=== PATIENT | male | born 1960 | race Two or more races ===

== ENCOUNTER 2021-07-18 14:50 | Inpatient (IN) | payer OTHER, MEDICAID ==
[~2021-07-18] VITALS: Ht 177.8 cm; Wt 131.0 kg
[2021-07-18] MEDS ORDERED: PANTOPRAZOLE 40mg/50ML NS AE 50 ML IV ONE (15:15)
[2021-07-18] MEDS ORDERED: PANTOPRAZOLE 40 MG/10 ML VIAL INJ IV ONE (15:15)
[2021-07-18 16:01] LABS: Basophils # (auto) 0.1 10 ^3/uL (0-0.2); Basophils % (auto) 1.2 % (0.0-2.0); Eosinophils # (auto) 0.4 10 ^3/uL (0-0.8); Eosinophils % (auto) 3.5 % (0.0-7.0); Hematocrit 34.4 % (41.0-53.0); Hemoglobin 11.7 g/dL (13.5-17.5); Lymphocytes # (auto) 1.4 10 ^3/uL (0.4-5.4); Lymphocytes % (auto) 12.8 % (10.0-50.0); Mean Corpuscular Hemoglobin 29.9 pg (28.0-32.0); Mean Corpuscular Hgb Conc. 34.1 g/dL (32.0-36.0); Mean Corpuscular Volume 87.6 fL (80.0-100.0); Monocytes # (auto) 0.9 10 ^3/uL (0-1.3); Monocytes % (auto) 8.1 % (0.0-12.0); Neutrophils % (auto) 74.4 % (37.0-80.0); Nucleated Red Blood Cells % 0.1 %; Red Blood Cells 3.93 10^6/uL (4.5-5.90); Red Cell Distribution Width 14.3 % (11.8-14.3); White Blood Cell 10.8 10^3/uL (4.4-10.8)
[2021-07-18 16:15] LABS: Alanine Aminotransferase 34 U/L (16-61); Albumin 2.2 g/dL (3.4-5.0); Anion Gap 4 (5-15); Aspartate Aminotransferase 10 U/L (15-37); BUN/Creatinine Ratio 19.3; Blood Urea Nitrogen 52 mg/dL (7-18); Calcium 7.7 mg/dL (8.5-10.1); Carbon Dioxide 21 mmol/L (21-32); Chloride 116 mmol/L (98-107); GFR African American 31 mL/min; GFR Non-African American 26 mL/min; Glucose 190 mg/dL (74-106); Sodium 141 mmol/L (136-145)
[2021-07-18 16:20] LABS: Alkaline Phosphatase 71 U/L (45-117); Bilirubin, Total 0.3 mg/dL (0.2-1.0); Total Protein 6.1 g/dL (6.4-8.2)
[2021-07-18 16:24] LABS: Potassium 5.8 mmol/L (3.5-5.1)
[2021-07-18] MEDS ORDERED: CALCIUM CHL 100MG/ML 1,000 MG in D5W 5% 100 ML IV ONE (17:30)
[2021-07-18] MEDS ORDERED: FUROSEMIDE 40 MG/4 ML VIAL IV ONE (17:30)
[2021-07-18 19:33] LABS: Calcium 8.1 mg/dL (8.5-10.1)
[2021-07-18 19:35] LABS: BUN/Creatinine Ratio 18.9
[2021-07-18 19:50] LABS: Potassium 6.3 mmol/L (3.5-5.1)
[2021-07-18] MEDS ORDERED: InsuLIN REG 1unit/0.01ml Soln (100units/ml) IV ONE (20:00)
[2021-07-18] MEDS ORDERED: SODIUM BICARBONATE 8.4% INJ 50ML SYRINGE IV ONE (20:00)
[2021-07-18] MEDS ORDERED: DEXTROSE (50%) 50ML SYRG IV ONE (20:00)
[2021-07-18] MEDS ORDERED: ALBUTEROL SULF 2.5 MG/0.5ML(0.5%) NEB SOLN NEB ONE (20:00)
[2021-07-18] MEDS ORDERED: CALCIUM GLUC 1,000mg/50ml-NS 0 ML IV ONE (22:31)
[2021-07-18] MEDS ORDERED: CALCIUM CHLOR(10%) 100MG/ML 10ML SYRINGE IV ONE (22:36)
[2021-07-19] MEDS ORDERED: SODIUM CHLORIDE 0.9% 1,000 ML IV ONE ×2 (04:30→08:30)
[2021-07-19 04:58] LABS: Basophils # (auto) 0.1 10 ^3/uL (0-0.2); Eosinophils # (auto) 0.2 10 ^3/uL (0-0.8)
[2021-07-19 05:00] LABS: Basophils % (auto) 0.4 % (0.0-2.0); Eosinophils % (auto) 1.5 % (0.0-7.0); Hematocrit 22.6 % (41.0-53.0); Hemoglobin 7.6 g/dL (13.5-17.5); Lymphocytes # (auto) 1.8 10 ^3/uL (0.4-5.4); Lymphocytes % (auto) 12.3 % (10.0-50.0); Mean Corpuscular Hemoglobin 29.9 pg (28.0-32.0); Mean Corpuscular Hgb Conc. 33.6 g/dL (32.0-36.0); Mean Corpuscular Volume 89.1 fL (80.0-100.0); Monocytes # (auto) 1.4 10 ^3/uL (0-1.3); Monocytes % (auto) 9.5 % (0.0-12.0); Neutrophils % (auto) 76.3 % (37.0-80.0); Nucleated Red Blood Cells % 0.1 %; Red Blood Cells 2.54 10^6/uL (4.5-5.90); Red Cell Distribution Width 14.4 % (11.8-14.3); White Blood Cell 14.4 10^3/uL (4.4-10.8)
[2021-07-19 05:15] LABS: BUN/Creatinine Ratio 16.2; Potassium 5.5 mmol/L (3.5-5.1)
[2021-07-19] MEDS ORDERED: NOREPINEPHRINE 8 MG/250ML KIT 250 ML IV ONE (08:51)
[2021-07-19] MEDS ORDERED: NOREPINEPHRINE 8 MG/250ML KIT 250 ML IV SCH (09:00)
[2021-07-19 09:30] VITALS: BP 96/63
[2021-07-19 09:45] VITALS: BP 131/111
[2021-07-19] MEDS ORDERED: SODIUM CHLORIDE 0.9% 4,100 ML IV ONE (10:00)
[2021-07-19] MEDS ORDERED: NITROGLYCERIN 0.4 MG SL TAB SL PRN (10:00)
[2021-07-19] MEDS ORDERED: SODIUM CHLORIDE 0.9% 1,000 ML IV SCH (10:00)
[2021-07-19] MEDS ORDERED: MORPHINE SULFATE INJECTION 2 MG/ML SYRG IV PRN (10:00)
[2021-07-19 10:30] VITALS: BP 105/51
[2021-07-19] MEDS ORDERED: SODIUM CHLORIDE 0.9% 2,000 ML IV ONE (10:30)
[2021-07-19] MEDS ORDERED: PANTOPRAZOLE 40mg/50ML NS AE 50 ML IV ONE (10:30)
[2021-07-19 10:37] LABS: INR 1.11 (0.9-1.15)
[2021-07-19] MEDS: OCTREOTIDE ACETATE 500 MCG in SODIUM CHL 0.9% 99 ML IV SCH ×2 (10:56→20:05)
[2021-07-19] MEDS ORDERED: HYDROmorphone HCL 2 MG/ML VL IV PRN (11:00)
[2021-07-19] MEDS ORDERED: NALBUPHINE HCL 10 MG/1ml INJECTION IV PRN (11:00)
[2021-07-19] MEDS ORDERED: DEXTROSE (50%) 50ML SYRG IV PRN (11:00)
[2021-07-19] MEDS ORDERED: cefTRIAXone 1GM/50ML D5W 50 ML IV ONE (11:00)
[2021-07-19] MEDS ORDERED: PROMETHAZINE HCL 25 MG/ML 1ML IV PRN (11:00)
[2021-07-19] MEDS ORDERED: GOLYTELY 4L KIT PO ONE (11:15)
[2021-07-19] MEDS: InsuLIN REG 1unit/0.01ml Soln (100units/ml) SC SCH ×2 (12:00→20:03)
[2021-07-19 12:04] LABS: Basophils # (auto) 0.1 10 ^3/uL (0-0.2); Basophils % (auto) 0.7 % (0.0-2.0); Hemoglobin 7.3 g/dL (13.5-17.5); Monocytes # (auto) 1.5 10 ^3/uL (0-1.3)
[2021-07-19 12:05] LABS: Eosinophils # (auto) 0.1 10 ^3/uL (0-0.8); Eosinophils % (auto) 0.8 % (0.0-7.0); Lymphocytes # (auto) 1.3 10 ^3/uL (0.4-5.4); Lymphocytes % (auto) 7.9 % (10.0-50.0); Mean Corpuscular Hemoglobin 29.5 pg (28.0-32.0); Mean Corpuscular Hgb Conc. 33.3 g/dL (32.0-36.0); Mean Corpuscular Volume 88.7 fL (80.0-100.0); Monocytes % (auto) 8.6 % (0.0-12.0); Red Blood Cells 2.48 10^6/uL (4.5-5.90); Red Cell Distribution Width 14.6 % (11.8-14.3); White Blood Cell 17.1 10^3/uL (4.4-10.8)
[2021-07-19 12:25] LABS: BUN/Creatinine Ratio 16.3; Calcium 7.8 mg/dL (8.5-10.1)
[2021-07-19 12:38] LABS: Potassium 5.6 mmol/L (3.5-5.1)
[2021-07-19] MEDS ORDERED: InsuLIN REG 1unit/0.01ml Soln (100units/ml) IV ONE ×2 (13:00→20:30)
[2021-07-19] MEDS ORDERED: DEXTROSE (50%) 50ML SYRG IV ONE ×2 (13:00→20:30)
[2021-07-19] MEDS ORDERED: SODIUM BICARBONATE 8.4 % INJ 50ML VIAL IV ONE (13:00)
[2021-07-19 13:50] VITALS: BP 103/39
[2021-07-19] MEDS: ACCU-CHEK COMFORT CURVE STRIP VI SCH ×2 (14:00→20:04)
[2021-07-19] MEDS ORDERED: metroNIDAZOLE 500MG/100ML 100 ML IV SCH (14:00)
[2021-07-19 14:05] VITALS: BP 83/35
[2021-07-19] MEDS: ONDANSETRON HCL 4 MG/2 ML VIAL IV PRN (15:57)
[2021-07-19] MEDS: PANTOPRAZOLE 40mg/50ML NS AE 50 ML IV SCH ×2 (16:08→20:06)
[2021-07-19] MEDS: SODIUM BICARBONATE 50ML VIAL 150 ML in D5W 5% 1,000 ML IV SCH (17:06)
[2021-07-19 17:07] LABS: BUN/Creatinine Ratio 14.7; Calcium 7.3 mg/dL (8.5-10.1)
[2021-07-19 18:01] LABS: Potassium 6.8 mmol/L (3.5-5.1)
[2021-07-19 18:54] LABS: Hemoglobin 7.5 g/dL (13.5-17.5)
[2021-07-19 18:57] LABS: Hematocrit 22.3 % (41.0-53.0)
[2021-07-19] MEDS ORDERED: SODIUM ZIRCONIUM CYCL 10 GM PAK PO ONE (19:15)
[2021-07-19] MEDS ORDERED: CALCIUM GLUC 1,000mg/50ml-NS 50 ML IV ONE (20:30)
[2021-07-19] MEDS ORDERED: SODIUM BICARBONATE 8.4% INJ 50ML SYRINGE IV ONE (20:30)
[2021-07-19] MEDS ORDERED: ALBUTEROL SULF 2.5 MG/0.5ML(0.5%) NEB SOLN NEB ONE (21:30)
[2021-07-19] MEDS ORDERED: ALBUTEROL SULF 2.5 MG/0.5ML(0.5%) NEB SOLN ONE (23:50)
[2021-07-20] VITALS (89 sets, daily range): BP systolic 75–203; BP diastolic 31–107
[2021-07-20] MEDS: PHENYLEPHRINE IV 250 ML IV SCH ×2 (00:30→09:00)
[2021-07-20] MEDS ORDERED: PHENYLEPHRINE IV 250 ML IV ONE (00:40)
[2021-07-20 00:43] LABS: Hematocrit 23.5 % (41.0-53.0); Hemoglobin 7.5 g/dL (13.5-17.5)
[2021-07-20] MEDS: InsuLIN REG 1unit/0.01ml Soln (100units/ml) SC SCH ×5 (01:52→23:38)
[2021-07-20] MEDS: PANTOPRAZOLE 40mg/50ML NS AE 50 ML IV SCH (02:27)
[2021-07-20] MEDS ORDERED: VASOPRESSIN 20 UNIT/ML ONE (02:29)
[2021-07-20] MEDS ORDERED: MIDAZOLAM HCL 5 MG/ML-1ML VIAL ONE ×2 (02:32→08:49)
[2021-07-20] MEDS ORDERED: fentaNYL CITRATE 100 MCG/2 ML VL ONE ×2 (02:32→08:49)
[2021-07-20] MEDS ORDERED: diphenhdrAMINE HCL 50 MG/1 ML VL ONE ×2 (02:32→08:49)
[2021-07-20] MEDS: VASOPRESSIN 50 UNITS in D5W 5% 247.5 ML IV SCH ×2 (03:02→18:00)
[2021-07-20] MEDS ORDERED: SODIUM CHLORIDE 0.9% 1,000 ML IV ONE (03:30)
[2021-07-20] MEDS ORDERED: SODIUM BICARBONATE 8.4% INJ 50ML SYRINGE IV ONE ×2 (04:00→17:00)
[2021-07-20] MEDS ORDERED: CALCIUM GLUC 1,000mg/50ml-NS 50 ML IV ONE ×3 (04:00→18:45)
[2021-07-20] MEDS ORDERED: DEXTROSE (50%) 50ML SYRG IV ONE ×2 (04:00→18:45)
[2021-07-20] MEDS ORDERED: InsuLIN REG 1unit/0.01ml Soln (100units/ml) IV ONE ×3 (04:00→18:45)
[2021-07-20] MEDS: ACCU-CHEK COMFORT CURVE STRIP VI SCH ×5 (05:37→23:36)
[2021-07-20] MEDS: SODIUM BICARBONATE 50ML VIAL 150 ML in D5W 5% 1,000 ML IV SCH ×3 (07:32→20:09)
[2021-07-20 08:07] LABS: Alanine Aminotransferase 123 U/L (16-61); Alkaline Phosphatase 31 U/L (45-117); Aspartate Aminotransferase 146 U/L (15-37); Bilirubin, Total 0.3 mg/dL (0.2-1.0); GFR African American 19 mL/min; GFR Non-African American 16 mL/min; Total Protein 2.3 g/dL (6.4-8.2)
[2021-07-20 08:34] LABS: Anion Gap 13 (5-15); BUN/Creatinine Ratio 11.5; Blood Urea Nitrogen 47 mg/dL (7-18); Carbon Dioxide 10 mmol/L (21-32); Chloride 125 mmol/L (98-107); Glucose 285 mg/dL (74-106); Potassium 5.1 mmol/L (3.5-5.1); Sodium 148 mmol/L (136-145)
[2021-07-20 08:40] LABS: Calcium > 15.0 mg/dL (8.5-10.1)
[2021-07-20 08:41] LABS: Albumin 0.8 g/dL (3.4-5.0)
[2021-07-20] MEDS ORDERED: SODIUM CHLORIDE LOCK 10 ML ONE (08:48)
[2021-07-20] MEDS ORDERED: LIDOCAINE VISCOUS 2% 15ML UD ONE (08:49)
[2021-07-20] MEDS: NOREPINEPHRINE BITARTRATE 32 MG in SODIUM CHL 0.9% 218 ML IV SCH (10:00)
[2021-07-20] MEDS ORDERED: ALBUMIN 5% 250 ML IV ONE (10:00)
[2021-07-20] MEDS: PANTOPRAZOLE 40 MG/10 ML VIAL INJ IV SCH ×2 (10:00→22:16)
[2021-07-20] MEDS: PHENYLEPHRINE INJ 80 MG in SODIUM CHL 0.9% 242 ML IV SCH ×2 (10:00→18:00)
[2021-07-20] MEDS ORDERED: LIDOCAINE 2%HCL (LOCAL ANESTH.) INJ 20ML MDV ONE (11:37)
[2021-07-20] MEDS ORDERED: GLUCAGON HYDROCHLORIDE (RDNA) 1 MG VIAL ONE ×2 (12:34→13:10)
[2021-07-20] MEDS ORDERED: IODIXANOL 320MG/ML 100ML BTL IV ONE ×2 (12:34→13:12)
[2021-07-20 15:54] LABS: Hematocrit 25.3 % (41.0-53.0); Hemoglobin 8.8 g/dL (13.5-17.5); Mean Corpuscular Hemoglobin 31.3 pg (28.0-32.0); Mean Corpuscular Hgb Conc. 34.6 g/dL (32.0-36.0); Mean Corpuscular Volume 90.5 fL (80.0-100.0); Red Cell Distribution Width 14.2 % (11.8-14.3)
[2021-07-20 16:12] LABS: Albumin 1.1 g/dL (3.4-5.0); Calcium 6.1 mg/dL (8.5-10.1)
[2021-07-20] MEDS ORDERED: DEXTROSE (50%) 50ML SYRG IV PRN (16:15)
[2021-07-20] MEDS ORDERED: INSULIN LANTUS (GLARGINE) 1 /0.01ml (100units/ml) SC ONE (16:15)
[2021-07-20 16:16] LABS: BUN/Creatinine Ratio 10.2; Bilirubin, Total 0.6 mg/dL (0.2-1.0); Total Protein 2.8 g/dL (6.4-8.2)
[2021-07-20 16:27] LABS: White Blood Cell 30.5 10^3/uL (4.4-10.8)
[2021-07-20 16:29] LABS: Basophils % (manual) 0 (0.0-2.0); Blast Cells 0; Eosinophils % (manual) 0 (0-7); Metamyelocytes % 0; Myelocytes % 0; Promyelocytes % 0; Reactive Lymphocytes 0
[2021-07-20 16:51] LABS: Band Neutrophils % (manual) 5; Lymphocytes % (manual) 5 (10.0-50.0); Monocytes % (manual) 7 (0-12)
[2021-07-20 16:54] LABS: Potassium 6.6 mmol/L (3.5-5.1)
[2021-07-20] MEDS ORDERED: ALBUTEROL SULF 2.5 MG/0.5ML(0.5%) NEB SOLN NEB ONE (17:00)
[2021-07-20] MEDS ORDERED: FUROSEMIDE 100 MG/10ML VIAL IV ONE (17:15)
[2021-07-20] MEDS ORDERED: HEPARIN 1,000 UNITS/ml 1ML VIAL ONE ×2 (17:43→17:45)
[2021-07-20] MEDS: OCTREOTIDE ACETATE 500 MCG in SODIUM CHL 0.9% 99 ML IV SCH (20:04)
[2021-07-20] MEDS: metroNIDAZOLE 500MG/100ML 100 ML IV SCH (22:15)
[2021-07-21] VITALS (97 sets, daily range): BP systolic 70–160; BP diastolic 20–74
[2021-07-21] MEDS ORDERED: ALBUMIN 25% 100 ML IV ONE ×2 (00:05→00:10)
[2021-07-21 01:15] LABS: Albumin 2.1 g/dL (3.4-5.0); BUN/Creatinine Ratio 9.3; Calcium 6.3 mg/dL (8.5-10.1); Potassium 4.9 mmol/L (3.5-5.1)
[2021-07-21 01:17] LABS: Bilirubin, Total 0.8 mg/dL (0.2-1.0)
[2021-07-21 01:37] LABS: Hematocrit 18.7 % (41.0-53.0)
[2021-07-21 01:43] LABS: Hemoglobin 6.3 g/dL (13.5-17.5)
[2021-07-21 01:59] LABS: Hematocrit 18.9 % (41.0-53.0); Red Blood Cells 2.02 10^6/uL (4.5-5.90)
[2021-07-21 02:00] LABS: Mean Corpuscular Hemoglobin 31.4 pg (28.0-32.0); Mean Corpuscular Hgb Conc. 33.6 g/dL (32.0-36.0); Mean Corpuscular Volume 93.3 fL (80.0-100.0); Red Cell Distribution Width 14.8 % (11.8-14.3); White Blood Cell 25.7 10^3/uL (4.4-10.8)
[2021-07-21 02:18] LABS: Hemoglobin 6.3 g/dL (13.5-17.5)
[2021-07-21 02:30] LABS: Basophils % (manual) 0 (0.0-2.0); Blast Cells 0; Eosinophils % (manual) 0 (0-7); Metamyelocytes % 0; Myelocytes % 0; Promyelocytes % 0; Reactive Lymphocytes 0
[2021-07-21] MEDS ORDERED: fentaNYL CITRATE 5 ML ONE ×2 (02:34→03:16)
[2021-07-21] MEDS ORDERED: MIDAZOLAM HCL 2MG/2ML 2ml VIAL (1mg/ml) ONE (02:34)
[2021-07-21] MEDS ORDERED: ROCURONIUM 10MG/ML 10ML VIAL IV ONE ×2 (02:35→03:12)
[2021-07-21] MEDS ORDERED: ceFAZolin 1GM/50ML 100 ML IV ONE (02:58)
[2021-07-21] MEDS ORDERED: POVIDONE IODINE 10 % TOPICAL OINT 30GM TOP ONE (04:34)
[2021-07-21] MEDS ORDERED: MIDAZOLAM DRIP 50 mg/50mL 50 ML IV SCH ×4 (05:15→17:15)
[2021-07-21 05:25] LABS: Band Neutrophils % (manual) 26; Lymphocytes % (manual) 5 (10.0-50.0); Monocytes % (manual) 4 (0-12)
[2021-07-21] MEDS ORDERED: PROPOFOL 10 MG/ML 20 ML IV ONE (05:31)
[2021-07-21] MEDS ORDERED: fentaNYL Drip 2500mCg/250mlNS 250 ML IV ONE (05:49)
[2021-07-21] MEDS ORDERED: MIDAZOLAM DRIP 50 mg/50mL 50 ML IV ONE (05:49)
[2021-07-21] MEDS: fentaNYL Drip 2500mCg/250mlNS 250 ML IV SCH (05:50)
[2021-07-21] MEDS: PROPOFOL 100 ML IV SCH (06:00)
[2021-07-21] MEDS: ACCU-CHEK COMFORT CURVE STRIP VI SCH ×5 (06:05→20:37)
[2021-07-21] MEDS: InsuLIN REG 1unit/0.01ml Soln (100units/ml) SC SCH ×5 (06:06→20:37)
[2021-07-21] MEDS: SODIUM BICARBONATE 50ML VIAL 150 ML in D5W 5% 1,000 ML IV SCH ×2 (06:07→08:13)
[2021-07-21] MEDS: OCTREOTIDE ACETATE 500 MCG in SODIUM CHL 0.9% 99 ML IV SCH ×2 (06:07→16:28)
[2021-07-21] MEDS: metroNIDAZOLE 500MG/100ML 100 ML IV SCH ×3 (06:33→22:33)
[2021-07-21 06:48] LABS: Basophils # (auto) 0 10 ^3/uL (0-0.2); Eosinophils # (auto) 0 10 ^3/uL (0-0.8); Eosinophils % (auto) 0.1 % (0.0-7.0); Lymphocytes # (auto) 1.2 10 ^3/uL (0.4-5.4); Monocytes # (auto) 1.2 10 ^3/uL (0-1.3)
[2021-07-21 06:50] LABS: Basophils % (auto) 0.3 % (0.0-2.0); Hematocrit 20.1 % (41.0-53.0); Lymphocytes % (auto) 8.9 % (10.0-50.0); Mean Corpuscular Hemoglobin 31.5 pg (28.0-32.0); Mean Corpuscular Hgb Conc. 34.3 g/dL (32.0-36.0); Mean Corpuscular Volume 91.9 fL (80.0-100.0); Monocytes % (auto) 9.4 % (0.0-12.0); Neutrophils # (auto) 10.7 10 ^3/uL (1.6-8.6); Neutrophils % (auto) 81.3 % (37.0-80.0); Nucleated Red Blood Cells % 0.3 %; Red Blood Cells 2.18 10^6/uL (4.5-5.90); Red Cell Distribution Width 13.8 % (11.8-14.3); White Blood Cell 13.2 10^3/uL (4.4-10.8)
[2021-07-21 07:08] LABS: Albumin 1.5 g/dL (3.4-5.0); BUN/Creatinine Ratio 9.2; Potassium 4.5 mmol/L (3.5-5.1)
[2021-07-21 07:11] LABS: Bilirubin, Total 0.5 mg/dL (0.2-1.0); Total Protein 3.4 g/dL (6.4-8.2)
[2021-07-21 07:13] LABS: Hemoglobin 6.9 g/dL (13.5-17.5)
[2021-07-21 07:35] LABS: Calcium 5.7 mg/dL (8.5-10.1)
[2021-07-21] MEDS ORDERED: CALCIUM GLUC 1,000mg/50ml-NS 50 ML IV ONE ×2 (08:00→10:00)
[2021-07-21 09:06] LABS: INR 1.44 (0.9-1.15); Partial Thromboplastin Time 32.5 sec (23.6-33.0)
[2021-07-21] MEDS: NOREPINEPHRINE BITARTRATE 32 MG in SODIUM CHL 0.9% 218 ML IV SCH (10:00)
[2021-07-21] MEDS: PANTOPRAZOLE 40 MG/10 ML VIAL INJ IV SCH ×2 (10:29→22:33)
[2021-07-21 10:47] LABS: Hematocrit 19.1 % (41.0-53.0)
[2021-07-21 10:49] LABS: Hemoglobin 6.5 g/dL (13.5-17.5)
[2021-07-21] MEDS ORDERED: FUROSEMIDE 20 MG/2 ML VIAL IV ONE (11:00)
[2021-07-21] MEDS: ALBUMIN 25% 100 ML IV SCH ×2 (11:18→18:12)
[2021-07-21] MEDS: SODIUM BICARBONATE 50ML VIAL 150 ML in SOD CHL 0.45% 1,000 ML IV SCH (13:40)
[2021-07-21] MEDS ORDERED: INSULIN LANTUS (GLARGINE) 1 /0.01ml (100units/ml) SC ONE (13:45)
[2021-07-21] MEDS ORDERED: TPN PER PHARMACY 0 ML IV SCH (13:45)
[2021-07-21 14:09] LABS: Magnesium 1.5 mg/dL (1.6-2.6); Phosphorus 6.4 mg/dL (2.5-4.90)
[2021-07-21] MEDS ORDERED: MAGNESIUM SULFATE 1GM/100ML 100 ML IV ONE (17:00)
[2021-07-21] MEDS ORDERED: MIDAZOLAM HCL 50 MG in SODIUM CHL 0.9% 50 ML IV SCH (17:30)
[2021-07-21] MEDS: MAGNESIUM SULFATE 1GM/100ML 100 ML IV SCH ×2 (17:30→20:35)
[2021-07-21] MEDS: MIDAZOLAM HCL IV SCH (17:30)
[2021-07-21] MEDS: SODIUM CHL 0.9% IV SCH (17:30)
[2021-07-21] MEDS: VASOPRESSIN 50 UNITS in D5W 5% 247.5 ML IV SCH (18:38)
[2021-07-21] MEDS: PHENYLEPHRINE INJ 80 MG in SODIUM CHL 0.9% 242 ML IV SCH (18:39)
[2021-07-21] MEDS ORDERED: AMINO ACID INFUSION IN D10W 1,000 ML IV NR (20:00)
[2021-07-21 22:27] LABS: Hematocrit 22.6 % (41.0-53.0); Hemoglobin 7.5 g/dL (13.5-17.5)
[2021-07-21] MEDS: INSULIN LANTUS (GLARGINE) 1 /0.01ml (100units/ml) SC SCH (22:45)
[2021-07-22] VITALS (101 sets, daily range): BP systolic 83–167; BP diastolic 28–61
[2021-07-22] MEDS: CEFOTETAN DISODIUM IV SCH ×3 (00:06→21:55)
[2021-07-22] MEDS: SODIUM BICARBONATE 50ML VIAL 150 ML in SOD CHL 0.45% 1,000 ML IV SCH ×2 (00:06→08:59)
[2021-07-22] MEDS: SODIUM CHL 0.9% IV SCH ×4 (00:06→21:55)
[2021-07-22] MEDS: ACCU-CHEK COMFORT CURVE STRIP VI SCH ×6 (00:19→19:53)
[2021-07-22] MEDS: OCTREOTIDE ACETATE 500 MCG in SODIUM CHL 0.9% 99 ML IV SCH ×2 (03:14→09:30)
[2021-07-22] MEDS: InsuLIN REG 1unit/0.01ml Soln (100units/ml) SC SCH ×6 (03:49→19:52)
[2021-07-22] MEDS: ALBUMIN 25% 100 ML IV SCH (03:49)
[2021-07-22 04:36] LABS: Basophils # (auto) 0 10 ^3/uL (0-0.2); Eosinophils # (auto) 0.1 10 ^3/uL (0-0.8); Lymphocytes # (auto) 0.9 10 ^3/uL (0.4-5.4); Neutrophils # (auto) 8.3 10 ^3/uL (1.6-8.6); Red Cell Distribution Width 14.4 % (11.8-14.3)
[2021-07-22 04:37] LABS: Basophils % (auto) 0.3 % (0.0-2.0); Eosinophils % (auto) 0.8 % (0.0-7.0); Hematocrit 19.9 % (41.0-53.0); Lymphocytes % (auto) 8.9 % (10.0-50.0); Mean Corpuscular Hgb Conc. 34.7 g/dL (32.0-36.0); Mean Corpuscular Volume 89.3 fL (80.0-100.0); Monocytes # (auto) 1.1 10 ^3/uL (0-1.3); Monocytes % (auto) 10.6 % (0.0-12.0); Neutrophils % (auto) 79.4 % (37.0-80.0); Red Blood Cells 2.23 10^6/uL (4.5-5.90); White Blood Cell 10.5 10^3/uL (4.4-10.8)
[2021-07-22] MEDS: PROPOFOL 100 ML IV SCH (04:37)
[2021-07-22 04:44] LABS: Hemoglobin 6.9 g/dL (13.5-17.5)
[2021-07-22 04:50] LABS: INR 1.32 (0.9-1.15); Magnesium 1.6 mg/dL (1.6-2.6); Potassium 3.7 mmol/L (3.5-5.1)
[2021-07-22 04:53] LABS: BUN/Creatinine Ratio 9.3; Bilirubin, Total 0.4 mg/dL (0.2-1.0); Phosphorus 4.4 mg/dL (2.5-4.90); Total Protein 3.8 g/dL (6.4-8.2)
[2021-07-22 05:08] LABS: Pre Albumin 8.2 mg/dL (20.0-40.0)
[2021-07-22] MEDS ORDERED: CALCIUM GLUC 1,000mg/50ml-NS 50 ML IV ONE ×2 (05:15→10:45)
[2021-07-22] MEDS: fentaNYL Drip 2500mCg/250mlNS 250 ML IV SCH ×2 (06:00→12:22)
[2021-07-22] MEDS: metroNIDAZOLE 500MG/100ML 100 ML IV SCH ×3 (07:33→21:52)
[2021-07-22] MEDS: PANTOPRAZOLE 40 MG/10 ML VIAL INJ IV SCH ×2 (09:33→21:53)
[2021-07-22] MEDS: NOREPINEPHRINE BITARTRATE 32 MG in SODIUM CHL 0.9% 218 ML IV SCH ×2 (09:34→22:24)
[2021-07-22] MEDS: INSULIN LANTUS (GLARGINE) 1 /0.01ml (100units/ml) SC SCH ×2 (09:34→22:07)
[2021-07-22] MEDS: MAGNESIUM SULFATE 1GM/100ML 100 ML IV SCH ×2 (11:24→12:26)
[2021-07-22] MEDS: MIDAZOLAM HCL IV SCH (12:16)
[2021-07-22] MEDS ORDERED: FUROSEMIDE 100 MG/10ML VIAL IV ONE (13:00)
[2021-07-22] MEDS ORDERED: TPN PER PHARMACY IV NR ×9 (20:00)
[2021-07-22] MEDS ORDERED: NOREPINEPHRINE 8 MG/250ML KIT 250 ML IV ONE (22:09)
[2021-07-23] VITALS (93 sets, daily range): BP systolic 81–144; BP diastolic 26–100
[2021-07-23] MEDS: ACCU-CHEK COMFORT CURVE STRIP VI SCH ×5 (00:11→17:20)
[2021-07-23] MEDS: InsuLIN REG 1unit/0.01ml Soln (100units/ml) SC SCH ×5 (00:16→17:20)
[2021-07-23] MEDS: MIDAZOLAM HCL IV SCH (00:53)
[2021-07-23] MEDS: VASOPRESSIN 50 UNITS in D5W 5% 247.5 ML IV SCH (00:53)
[2021-07-23] MEDS: SODIUM CHL 0.9% IV SCH (00:53)
[2021-07-23] MEDS: fentaNYL Drip 2500mCg/250mlNS 250 ML IV SCH (00:55)
[2021-07-23] MEDS: PROPOFOL 100 ML IV SCH (03:14)
[2021-07-23 04:30] LABS: Eosinophils # (auto) 0.2 10 ^3/uL (0-0.8); Eosinophils % (auto) 1.7 % (0.0-7.0); Lymphocytes # (auto) 0.9 10 ^3/uL (0.4-5.4); Mean Corpuscular Hgb Conc. 34.5 g/dL (32.0-36.0); Monocytes # (auto) 0.9 10 ^3/uL (0-1.3); Monocytes % (auto) 8.7 % (0.0-12.0)
[2021-07-23 04:32] LABS: Basophils # (auto) 0 10 ^3/uL (0-0.2); Basophils % (auto) 0.4 % (0.0-2.0); Hemoglobin 7.2 g/dL (13.5-17.5); Lymphocytes % (auto) 8.7 % (10.0-50.0); Mean Corpuscular Hemoglobin 31.3 pg (28.0-32.0); Mean Corpuscular Volume 90.5 fL (80.0-100.0); Neutrophils # (auto) 8.2 10 ^3/uL (1.6-8.6); Neutrophils % (auto) 80.5 % (37.0-80.0); Red Blood Cells 2.32 10^6/uL (4.5-5.90); Red Cell Distribution Width 14.8 % (11.8-14.3); White Blood Cell 10.2 10^3/uL (4.4-10.8)
[2021-07-23 05:04] LABS: Calcium 6.6 mg/dL (8.5-10.1); Magnesium 1.8 mg/dL (1.6-2.6); Potassium 3.7 mmol/L (3.5-5.1)
[2021-07-23 05:05] LABS: INR 1.3 (0.9-1.15); Partial Thromboplastin Time 35.4 sec (23.6-33.0)
[2021-07-23 05:09] LABS: Albumin 1.8 g/dL (3.4-5.0); BUN/Creatinine Ratio 9.4; Bilirubin, Total 0.4 mg/dL (0.2-1.0); Phosphorus 3.9 mg/dL (2.5-4.90)
[2021-07-23] MEDS: metroNIDAZOLE 500MG/100ML 100 ML IV SCH ×3 (05:47→21:07)
[2021-07-23] MEDS ORDERED: CALCIUM GLUC 1,000mg/50ml-NS 50 ML IV ONE (08:00)
[2021-07-23] MEDS ORDERED: ALBUMIN 25% 100 ML IV ONE (09:45)
[2021-07-23] MEDS ORDERED: FUROSEMIDE 40 MG/4 ML VIAL IV ONE (09:45)
[2021-07-23] MEDS: PHENYLEPHRINE INJ 80 MG in SODIUM CHL 0.9% 242 ML IV SCH (10:00)
[2021-07-23] MEDS: cefTRIAXone 1GM/50ML D5W 50 ML IV SCH (10:07)
[2021-07-23] MEDS: PANTOPRAZOLE 40 MG/10 ML VIAL INJ IV SCH ×2 (10:07→21:07)
[2021-07-23] MEDS: INSULIN LANTUS (GLARGINE) 1 /0.01ml (100units/ml) SC SCH ×2 (10:08→21:48)
[2021-07-23] MEDS ORDERED: DEXTROSE (50%) 50ML SYRG IV PRN (11:15)
[2021-07-23] MEDS ORDERED: TPN PER PHARMACY IV NR ×9 (20:00)
[2021-07-24] VITALS (40 sets, daily range): BP systolic 95–179; BP diastolic 37–79
[2021-07-24] MEDS: PROPOFOL 100 ML IV SCH ×2 (01:51→23:41)
[2021-07-24] MEDS: VASOPRESSIN 50 UNITS in D5W 5% 247.5 ML IV SCH (02:30)
[2021-07-24 04:33] LABS: Basophils # (auto) 0 10 ^3/uL (0-0.2); Eosinophils # (auto) 0.4 10 ^3/uL (0-0.8); Hemoglobin 8.4 g/dL (13.5-17.5); Lymphocytes # (auto) 0.9 10 ^3/uL (0.4-5.4); Monocytes # (auto) 1.1 10 ^3/uL (0-1.3); Monocytes % (auto) 9.9 % (0.0-12.0); Neutrophils # (auto) 8.8 10 ^3/uL (1.6-8.6); Nucleated Red Blood Cells % 0.5 %; Red Blood Cells 2.72 10^6/uL (4.5-5.90); White Blood Cell 11.2 10^3/uL (4.4-10.8)
[2021-07-24 04:50] LABS: Potassium 3.2 mmol/L (3.5-5.1)
[2021-07-24 04:52] LABS: Basophils % (auto) 0.3 % (0.0-2.0); Eosinophils % (auto) 3.2 % (0.0-7.0); Hematocrit 24.7 % (41.0-53.0); Lymphocytes % (auto) 7.8 % (10.0-50.0); Mean Corpuscular Hemoglobin 30.8 pg (28.0-32.0); Mean Corpuscular Hgb Conc. 33.9 g/dL (32.0-36.0); Mean Corpuscular Volume 90.7 fL (80.0-100.0); Neutrophils % (auto) 78.8 % (37.0-80.0); Red Cell Distribution Width 14.9 % (11.8-14.3)
[2021-07-24 04:56] LABS: BUN/Creatinine Ratio 10.6; Calcium 7.3 mg/dL (8.5-10.1); Magnesium 1.9 mg/dL (1.6-2.6); Phosphorus 3.6 mg/dL (2.5-4.90)
[2021-07-24 05:07] LABS: Bilirubin, Total 0.6 mg/dL (0.2-1.0); Total Protein 4.5 g/dL (6.4-8.2)
[2021-07-24] MEDS: ACCU-CHEK COMFORT CURVE STRIP VI SCH ×5 (05:57→23:41)
[2021-07-24] MEDS: fentaNYL Drip 2500mCg/250mlNS 250 ML IV SCH (05:57)
[2021-07-24] MEDS: metroNIDAZOLE 500MG/100ML 100 ML IV SCH ×3 (05:57→22:10)
[2021-07-24] MEDS: InsuLIN REG 1unit/0.01ml Soln (100units/ml) SC SCH ×5 (05:58→23:45)
[2021-07-24] MEDS: INSULIN LANTUS (GLARGINE) 1 /0.01ml (100units/ml) SC SCH ×2 (10:00→22:13)
[2021-07-24] MEDS: PANTOPRAZOLE 40 MG/10 ML VIAL INJ IV SCH ×2 (10:00→22:10)
[2021-07-24] MEDS: cefTRIAXone 1GM/50ML D5W 50 ML IV SCH (12:22)
[2021-07-24 13:17] LABS: Hepatitis A Ab IgM Negative; Hepatitis B Core IgM Negative; Hepatitis B Surface Antigen Negative (Negative); Hepatitis C Antibody Negative (Negative)
[2021-07-24] MEDS: hydrALAZINE HCL 20 MG/ML VL IV PRN (15:18)
[2021-07-24] MEDS: POTASSIUM CHL 20MEQ/100ML 100 ML IV SCH ×2 (15:40→17:15)
[2021-07-24] MEDS: SODIUM CHL 0.9% IV SCH (17:30)
[2021-07-24] MEDS: MIDAZOLAM HCL IV SCH (17:30)
[2021-07-24] MEDS ORDERED: TPN PER PHARMACY IV NR ×8 (20:00)
[2021-07-24 20:06] LABS: Creatinine, Urine 67.1 mg/dL (30.0-125.0); Protein, Urine 369.8 mg/dL (0.0-11.9)
[2021-07-24 20:07] LABS: Creatinine, Urine 67.1 mg/dL (30.0-125.0)
[2021-07-25] VITALS (93 sets, daily range): BP systolic 110–188; BP diastolic 39–79
[2021-07-25] MEDS: fentaNYL Drip 2500mCg/250mlNS 250 ML IV SCH ×2 (00:20→22:51)
[2021-07-25 03:59] LABS: Urine Amorphous Crystal FEW /hpf (None Seen); Urine Bacteria FEW /hpf (None Seen); Urine Blood 3+ /uL (Negative); Urine Hyaline Cast FEW /lpf (0 - 2); Urine Specific Gravity 1.022 (1.001-1.035); Urine WBC 17 /hpf (0 - 3); Urine WBC Clumps PRESENT /hpf (None Seen)
[2021-07-25 04:33] LABS: Basophils # (auto) 0 10 ^3/uL (0-0.2); Basophils % (auto) 0.2 % (0.0-2.0); Eosinophils # (auto) 0.2 10 ^3/uL (0-0.8); Hemoglobin 7.7 g/dL (13.5-17.5); Mean Corpuscular Volume 91.3 fL (80.0-100.0)
[2021-07-25 04:35] LABS: Eosinophils % (auto) 1.9 % (0.0-7.0); Hematocrit 22.4 % (41.0-53.0); Lymphocytes # (auto) 0.7 10 ^3/uL (0.4-5.4); Lymphocytes % (auto) 6.1 % (10.0-50.0); Mean Corpuscular Hemoglobin 31.6 pg (28.0-32.0); Mean Corpuscular Hgb Conc. 34.6 g/dL (32.0-36.0); Monocytes # (auto) 1.1 10 ^3/uL (0-1.3); Monocytes % (auto) 10.3 % (0.0-12.0); Neutrophils % (auto) 81.5 % (37.0-80.0); Nucleated Red Blood Cells % 0.5 %; Red Blood Cells 2.45 10^6/uL (4.5-5.90); Red Cell Distribution Width 14.4 % (11.8-14.3)
[2021-07-25 04:46] LABS: Potassium 3.3 mmol/L (3.5-5.1)
[2021-07-25 04:55] LABS: Albumin 1.6 g/dL (3.4-5.0); BUN/Creatinine Ratio 12.7; Bilirubin, Total 0.5 mg/dL (0.2-1.0); Calcium 7.2 mg/dL (8.5-10.1); Magnesium 2.4 mg/dL (1.6-2.6); Phosphorus 2.3 mg/dL (2.5-4.90); Total Protein 4.1 g/dL (6.4-8.2)
[2021-07-25] MEDS: ACCU-CHEK COMFORT CURVE STRIP VI SCH ×4 (05:22→23:27)
[2021-07-25] MEDS: InsuLIN REG 1unit/0.01ml Soln (100units/ml) SC SCH ×4 (05:25→23:33)
[2021-07-25] MEDS: metroNIDAZOLE 500MG/100ML 100 ML IV SCH ×3 (05:43→22:08)
[2021-07-25] MEDS: PANTOPRAZOLE 40 MG/10 ML VIAL INJ IV SCH ×2 (08:22→22:08)
[2021-07-25] MEDS: cefTRIAXone 1GM/50ML D5W 50 ML IV SCH (08:22)
[2021-07-25] MEDS ORDERED: POTASSIUM CHLORIDE 20 MEQ, LIDOCAINE 1% (LOCAL ANESTH.) 2 ML in SODIUM CHL 0.9% 100 ML IV ONE (09:30)
[2021-07-25] MEDS: INSULIN LANTUS (GLARGINE) 1 /0.01ml (100units/ml) SC SCH ×2 (10:04→22:09)
[2021-07-25] MEDS ORDERED: POTASSIUM CHL 20MEQ/100ML 100 ML IV SCH (11:00)
[2021-07-25] MEDS: MIDAZOLAM HCL IV SCH (11:10)
[2021-07-25] MEDS: SODIUM CHL 0.9% IV SCH (11:10)
[2021-07-25] MEDS ORDERED: POTASSIUM PHOSP 22MEQ(15MMOLE) in NS 100 ML IV ONE (12:00)
[2021-07-25 12:07] LABS: Hematocrit 23.5 % (41.0-53.0); Hemoglobin 7.9 g/dL (13.5-17.5)
[2021-07-25] MEDS: SODIUM FERR GLUC 62.5MG/5ML 125 MG in SODIUM CHL 0.9% 100 ML IV SCH (12:28)
[2021-07-25] MEDS ORDERED: FUROSEMIDE 40 MG/4 ML VIAL IV ONE (15:15)
[2021-07-25] MEDS ORDERED: TPN PER PHARMACY IV NR ×10 (20:00)
[2021-07-25] MEDS: PROPOFOL 100 ML IV SCH (23:05)
[2021-07-26] VITALS (98 sets, daily range): BP systolic 98–177; BP diastolic 44–73
[2021-07-26 04:10] LABS: Albumin 1.6 g/dL (3.4-5.0); BUN/Creatinine Ratio 15.2; Calcium 7.2 mg/dL (8.5-10.1); Potassium 3.6 mmol/L (3.5-5.1)
[2021-07-26 04:13] LABS: Bilirubin, Total 0.4 mg/dL (0.2-1.0); Phosphorus 3.7 mg/dL (2.5-4.90); Total Protein 4.4 g/dL (6.4-8.2)
[2021-07-26 04:30] LABS: Basophils # (auto) 0.1 10 ^3/uL (0-0.2); Basophils % (auto) 0.4 % (0.0-2.0); Eosinophils # (auto) 0.4 10 ^3/uL (0-0.8); Eosinophils % (auto) 3.5 % (0.0-7.0); Hematocrit 27.1 % (41.0-53.0); Hemoglobin 9.1 g/dL (13.5-17.5); Lymphocytes # (auto) 0.8 10 ^3/uL (0.4-5.4); Lymphocytes % (auto) 6.6 % (10.0-50.0); Mean Corpuscular Hemoglobin 30.5 pg (28.0-32.0); Mean Corpuscular Hgb Conc. 33.5 g/dL (32.0-36.0); Monocytes # (auto) 1.6 10 ^3/uL (0-1.3); Monocytes % (auto) 12.5 % (0.0-12.0); Neutrophils # (auto) 9.7 10 ^3/uL (1.6-8.6); Nucleated Red Blood Cells % 0.1 %; Red Blood Cells 2.97 10^6/uL (4.5-5.90); Red Cell Distribution Width 14.9 % (11.8-14.3); White Blood Cell 12.6 10^3/uL (4.4-10.8)
[2021-07-26] MEDS: ACCU-CHEK COMFORT CURVE STRIP VI SCH ×4 (05:56→23:50)
[2021-07-26] MEDS: metroNIDAZOLE 500MG/100ML 100 ML IV SCH ×3 (05:56→21:31)
[2021-07-26] MEDS: InsuLIN REG 1unit/0.01ml Soln (100units/ml) SC SCH ×4 (05:59→23:51)
[2021-07-26] MEDS: cefTRIAXone 1GM/50ML D5W 50 ML IV SCH (08:55)
[2021-07-26] MEDS ORDERED: FUROSEMIDE 20 MG/2 ML VIAL IV ONE (09:45)
[2021-07-26] MEDS: INSULIN LANTUS (GLARGINE) 1 /0.01ml (100units/ml) SC SCH ×2 (09:53→22:38)
[2021-07-26] MEDS: PANTOPRAZOLE 40 MG/10 ML VIAL INJ IV SCH ×2 (10:11→21:32)
[2021-07-26] MEDS: SODIUM FERR GLUC 62.5MG/5ML 125 MG in SODIUM CHL 0.9% 100 ML IV SCH (12:43)
[2021-07-26] MEDS: MIDAZOLAM HCL IV SCH (17:30)
[2021-07-26] MEDS: SODIUM CHL 0.9% IV SCH (17:30)
[2021-07-26] MEDS: hydrALAZINE HCL 20 MG/ML VL IV PRN (18:02)
[2021-07-26] MEDS: fentaNYL Drip 2500mCg/250mlNS 250 ML IV SCH (18:55)
[2021-07-26] MEDS ORDERED: TPN PER PHARMACY IV NR ×11 (20:00)
[2021-07-26] MEDS: PROPOFOL 100 ML IV SCH (21:31)
[2021-07-27] VITALS (78 sets, daily range): BP systolic 96–193; BP diastolic 45–73
[2021-07-27 04:49] LABS: Basophils # (auto) 0.1 10 ^3/uL (0-0.2); Basophils % (auto) 0.4 % (0.0-2.0); Eosinophils # (auto) 0.2 10 ^3/uL (0-0.8); Eosinophils % (auto) 1.5 % (0.0-7.0); Hematocrit 26.5 % (41.0-53.0); Hemoglobin 8.9 g/dL (13.5-17.5); Lymphocytes # (auto) 0.6 10 ^3/uL (0.4-5.4); Lymphocytes % (auto) 4.6 % (10.0-50.0); Mean Corpuscular Hemoglobin 30.7 pg (28.0-32.0); Mean Corpuscular Hgb Conc. 33.7 g/dL (32.0-36.0); Mean Corpuscular Volume 91.1 fL (80.0-100.0); Monocytes # (auto) 1.6 10 ^3/uL (0-1.3); Neutrophils # (auto) 11.2 10 ^3/uL (1.6-8.6); Neutrophils % (auto) 81.5 % (37.0-80.0); Nucleated Red Blood Cells % 0.1 %; Red Blood Cells 2.91 10^6/uL (4.5-5.90); Red Cell Distribution Width 14.8 % (11.8-14.3); White Blood Cell 13.7 10^3/uL (4.4-10.8)
[2021-07-27 05:01] LABS: Albumin 1.5 g/dL (3.4-5.0); Magnesium 2.3 mg/dL (1.6-2.6); Potassium 3.7 mmol/L (3.5-5.1)
[2021-07-27 05:05] LABS: BUN/Creatinine Ratio 17.5; Bilirubin, Total 0.3 mg/dL (0.2-1.0); Phosphorus 3.7 mg/dL (2.5-4.90); Total Protein 4.6 g/dL (6.4-8.2)
[2021-07-27] MEDS: ACCU-CHEK COMFORT CURVE STRIP VI SCH ×4 (05:38→23:33)
[2021-07-27] MEDS: metroNIDAZOLE 500MG/100ML 100 ML IV SCH ×3 (05:38→20:20)
[2021-07-27] MEDS: hydrALAZINE HCL 20 MG/ML VL IV PRN ×2 (05:39→14:46)
[2021-07-27] MEDS: InsuLIN REG 1unit/0.01ml Soln (100units/ml) SC SCH ×4 (05:56→23:46)
[2021-07-27] MEDS: cefTRIAXone 1GM/50ML D5W 50 ML IV SCH (08:12)
[2021-07-27] MEDS: PANTOPRAZOLE 40 MG/10 ML VIAL INJ IV SCH ×2 (09:26→20:20)
[2021-07-27] MEDS: INSULIN LANTUS (GLARGINE) 1 /0.01ml (100units/ml) SC SCH ×2 (09:28→20:25)
[2021-07-27] MEDS: SODIUM FERR GLUC 62.5MG/5ML 125 MG in SODIUM CHL 0.9% 100 ML IV SCH (12:22)
[2021-07-27] MEDS: fentaNYL Drip 2500mCg/250mlNS 250 ML IV SCH (12:30)
[2021-07-27] MEDS ORDERED: TPN PER PHARMACY IV NR ×11 (20:00)
[2021-07-27] MEDS: PROPOFOL 100 ML IV SCH (20:19)
[2021-07-28] VITALS (71 sets, daily range): BP systolic 89–197; BP diastolic 37–97
[2021-07-28 04:26] LABS: Basophils # (auto) 0 10 ^3/uL (0-0.2); Basophils % (auto) 0.2 % (0.0-2.0); Eosinophils # (auto) 0.3 10 ^3/uL (0-0.8); Eosinophils % (auto) 1.9 % (0.0-7.0); Hematocrit 31.2 % (41.0-53.0); Hemoglobin 10.3 g/dL (13.5-17.5); Lymphocytes % (auto) 7.1 % (10.0-50.0); Mean Corpuscular Hemoglobin 30.4 pg (28.0-32.0); Mean Corpuscular Hgb Conc. 32.9 g/dL (32.0-36.0); Mean Corpuscular Volume 92.3 fL (80.0-100.0); Monocytes # (auto) 2.2 10 ^3/uL (0-1.3); Monocytes % (auto) 15.6 % (0.0-12.0); Neutrophils # (auto) 10.7 10 ^3/uL (1.6-8.6); Neutrophils % (auto) 75.2 % (37.0-80.0); Red Blood Cells 3.38 10^6/uL (4.5-5.90); Red Cell Distribution Width 15.1 % (11.8-14.3); White Blood Cell 14.2 10^3/uL (4.4-10.8)
[2021-07-28] MEDS: metroNIDAZOLE 500MG/100ML 100 ML IV SCH ×3 (04:36→21:00)
[2021-07-28 04:40] LABS: Albumin 1.8 g/dL (3.4-5.0); BUN/Creatinine Ratio 20.6; Bilirubin, Total 0.4 mg/dL (0.2-1.0); Calcium 7.6 mg/dL (8.5-10.1); Magnesium 2.5 mg/dL (1.6-2.6); Phosphorus 3.8 mg/dL (2.5-4.90); Total Protein 5.7 g/dL (6.4-8.2)
[2021-07-28] MEDS: InsuLIN REG 1unit/0.01ml Soln (100units/ml) SC SCH ×3 (05:11→17:05)
[2021-07-28] MEDS: ACCU-CHEK COMFORT CURVE STRIP VI SCH ×3 (05:11→17:09)
[2021-07-28] MEDS: PANTOPRAZOLE 40 MG/10 ML VIAL INJ IV SCH ×2 (08:41→21:00)
[2021-07-28] MEDS: cefTRIAXone 1GM/50ML D5W 50 ML IV SCH (08:41)
[2021-07-28] MEDS: INSULIN LANTUS (GLARGINE) 1 /0.01ml (100units/ml) SC SCH ×2 (08:42→21:01)
[2021-07-28] MEDS: hydrALAZINE HCL 20 MG/ML VL IV PRN ×2 (09:37→16:28)
[2021-07-28] MEDS: BUMETANIDE 2.5mg/10ml (0.25 mg/ml) INJ IV SCH (11:26)
[2021-07-28] MEDS: SODIUM FERR GLUC 62.5MG/5ML 125 MG in SODIUM CHL 0.9% 100 ML IV SCH (12:00)
[2021-07-28] MEDS: LABETALOL HCL 5 MG/ML 4ML SYRINGE IV PRN ×2 (13:50→16:36)
[2021-07-28] MEDS: fentaNYL Drip 2500mCg/250mlNS 250 ML IV SCH (15:11)
[2021-07-28] MEDS ORDERED: TPN PER PHARMACY IV NR ×10 (20:00)
[2021-07-29] VITALS (88 sets, daily range): BP systolic 57–188; BP diastolic 28–76
[2021-07-29] MEDS: hydrALAZINE HCL 20 MG/ML VL IV PRN ×2 (01:16→09:46)
[2021-07-29] MEDS: PROPOFOL 100 ML IV SCH ×3 (02:17→21:21)
[2021-07-29] MEDS: fentaNYL Drip 2500mCg/250mlNS 250 ML IV SCH ×2 (02:19→21:18)
[2021-07-29 03:56] LABS: Basophils # (auto) 0 10 ^3/uL (0-0.2); Basophils % (auto) 0.2 % (0.0-2.0); Eosinophils # (auto) 0.1 10 ^3/uL (0-0.8); Eosinophils % (auto) 0.7 % (0.0-7.0); Hematocrit 26.8 % (41.0-53.0); Hemoglobin 8.8 g/dL (13.5-17.5); Lymphocytes # (auto) 0.5 10 ^3/uL (0.4-5.4); Lymphocytes % (auto) 4.6 % (10.0-50.0); Mean Corpuscular Hemoglobin 30.7 pg (28.0-32.0); Mean Corpuscular Hgb Conc. 32.7 g/dL (32.0-36.0); Monocytes # (auto) 1.8 10 ^3/uL (0-1.3); Monocytes % (auto) 15.8 % (0.0-12.0); Neutrophils # (auto) 8.8 10 ^3/uL (1.6-8.6); Neutrophils % (auto) 78.7 % (37.0-80.0); Nucleated Red Blood Cells % 0.1 %; Red Blood Cells 2.85 10^6/uL (4.5-5.90); Red Cell Distribution Width 15.3 % (11.8-14.3); White Blood Cell 11.3 10^3/uL (4.4-10.8)
[2021-07-29 04:08] LABS: INR 1.44 (0.9-1.15); Partial Thromboplastin Time 31.7 sec (23.6-33.0)
[2021-07-29 04:12] LABS: Albumin 1.5 g/dL (3.4-5.0); Calcium 7.4 mg/dL (8.5-10.1); Magnesium 2.4 mg/dL (1.6-2.6); Potassium 4.2 mmol/L (3.5-5.1)
[2021-07-29 04:15] LABS: Bilirubin, Total 0.3 mg/dL (0.2-1.0); Phosphorus 3.8 mg/dL (2.5-4.90); Total Protein 5.1 g/dL (6.4-8.2)
[2021-07-29 04:20] LABS: BUN/Creatinine Ratio 21.5
[2021-07-29] MEDS: metroNIDAZOLE 500MG/100ML 100 ML IV SCH ×3 (05:24→20:45)
[2021-07-29] MEDS: ACCU-CHEK COMFORT CURVE STRIP VI SCH ×4 (06:00→18:19)
[2021-07-29] MEDS: InsuLIN REG 1unit/0.01ml Soln (100units/ml) SC SCH ×4 (06:00→18:26)
[2021-07-29] MEDS ORDERED: LIDOCAINE 1% (LOCAL ANESTH.) PF 5ml SDV ID ONE (08:30)
[2021-07-29] MEDS: cefTRIAXone 1GM/50ML D5W 50 ML IV SCH (09:46)
[2021-07-29] MEDS: SODIUM CHLOR 0.9% PF (SALINE LOCK) 10ML VIAL/SYR IV SCH ×2 (10:00→21:18)
[2021-07-29] MEDS: BUMETANIDE 2.5mg/10ml (0.25 mg/ml) INJ IV SCH (11:27)
[2021-07-29] MEDS: PANTOPRAZOLE 40 MG/10 ML VIAL INJ IV SCH ×2 (11:28→20:45)
[2021-07-29] MEDS: SODIUM FERR GLUC 62.5MG/5ML 125 MG in SODIUM CHL 0.9% 100 ML IV SCH (12:30)
[2021-07-29] MEDS: INSULIN LANTUS (GLARGINE) 1 /0.01ml (100units/ml) SC SCH ×2 (15:03→21:14)
[2021-07-29] MEDS ORDERED: TPN PER PHARMACY IV NR ×9 (20:00)
[2021-07-29] MEDS: ARTIFICIAL TEAR OPTH(EYE) OINT 3.5GM EACHEYE SCH (20:45)
[2021-07-30] VITALS (100 sets, daily range): BP systolic 11–139; BP diastolic 31–59
[2021-07-30] MEDS: PROPOFOL 100 ML IV SCH ×2 (02:21→06:41)
[2021-07-30 03:52] LABS: Basophils # (auto) 0 10 ^3/uL (0-0.2); Basophils % (auto) 0.5 % (0.0-2.0); Eosinophils # (auto) 0.3 10 ^3/uL (0-0.8); Eosinophils % (auto) 2.4 % (0.0-7.0); Hematocrit 26.7 % (41.0-53.0); Hemoglobin 8.8 g/dL (13.5-17.5); Lymphocytes # (auto) 0.6 10 ^3/uL (0.4-5.4); Lymphocytes % (auto) 5.7 % (10.0-50.0); Mean Corpuscular Hemoglobin 30.9 pg (28.0-32.0); Mean Corpuscular Volume 93.9 fL (80.0-100.0); Monocytes # (auto) 1.5 10 ^3/uL (0-1.3); Monocytes % (auto) 14.1 % (0.0-12.0); Neutrophils # (auto) 8.4 10 ^3/uL (1.6-8.6); Neutrophils % (auto) 77.3 % (37.0-80.0); Red Blood Cells 2.84 10^6/uL (4.5-5.90); Red Cell Distribution Width 15.4 % (11.8-14.3); White Blood Cell 10.8 10^3/uL (4.4-10.8)
[2021-07-30 04:10] LABS: Albumin 1.4 g/dL (3.4-5.0); BUN/Creatinine Ratio 23.9; Calcium 7.6 mg/dL (8.5-10.1); Magnesium 2.1 mg/dL (1.6-2.6); Potassium 4.2 mmol/L (3.5-5.1)
[2021-07-30 04:12] LABS: Bilirubin, Total 0.2 mg/dL (0.2-1.0); Phosphorus 4.7 mg/dL (2.5-4.90); Total Protein 5.1 g/dL (6.4-8.2)
[2021-07-30] MEDS: InsuLIN REG 1unit/0.01ml Soln (100units/ml) SC SCH ×5 (06:00→23:07)
[2021-07-30] MEDS: metroNIDAZOLE 500MG/100ML 100 ML IV SCH ×3 (06:01→22:27)
[2021-07-30] MEDS: ACCU-CHEK COMFORT CURVE STRIP VI SCH ×5 (06:01→23:07)
[2021-07-30] MEDS: SODIUM CHLOR 0.9% PF (SALINE LOCK) 10ML VIAL/SYR IV SCH ×2 (10:00→19:48)
[2021-07-30] MEDS ORDERED: ALBUMIN 25% 100 ML IV SCH (10:30)
[2021-07-30] MEDS ORDERED: ALBUMIN 5% 250 ML IV ONE (10:45)
[2021-07-30] MEDS: SODIUM FERR GLUC 62.5MG/5ML 125 MG in SODIUM CHL 0.9% 100 ML IV SCH (12:00)
[2021-07-30 12:08] LABS: % Iron Saturation 41.2 % (20-55)
[2021-07-30] MEDS: BUMETANIDE 2.5mg/10ml (0.25 mg/ml) INJ IV SCH (12:21)
[2021-07-30] MEDS: cefTRIAXone 1GM/50ML D5W 50 ML IV SCH (12:21)
[2021-07-30] MEDS: PANTOPRAZOLE 40 MG/10 ML VIAL INJ IV SCH ×2 (12:22→20:44)
[2021-07-30] MEDS: INSULIN LANTUS (GLARGINE) 1 /0.01ml (100units/ml) SC SCH ×2 (12:42→20:47)
[2021-07-30] MEDS ORDERED: Nepro With Carb Steady 1 Liter Bottle GT SCH (17:15)
[2021-07-30] MEDS: ALBUMIN 25% 100 ML IV SCH (19:23)
[2021-07-30] MEDS: ARTIFICIAL TEAR OPTH(EYE) OINT 3.5GM EACHEYE SCH (19:48)
[2021-07-30] MEDS ORDERED: TPN PER PHARMACY IV NR ×10 (20:00)
[2021-07-31] VITALS (94 sets, daily range): BP systolic 87–175; BP diastolic 42–95
[2021-07-31] MEDS: ALBUMIN 25% 100 ML IV SCH ×2 (03:15→12:13)
[2021-07-31 05:15] LABS: Basophils # (auto) 0.1 10 ^3/uL (0-0.2); Basophils % (auto) 0.4 % (0.0-2.0); Eosinophils # (auto) 0.2 10 ^3/uL (0-0.8); Hematocrit 26.3 % (41.0-53.0); Hemoglobin 8.7 g/dL (13.5-17.5); Lymphocytes # (auto) 0.6 10 ^3/uL (0.4-5.4); Lymphocytes % (auto) 3.5 % (10.0-50.0); Mean Corpuscular Hemoglobin 30.8 pg (28.0-32.0); Mean Corpuscular Hgb Conc. 33.1 g/dL (32.0-36.0); Mean Corpuscular Volume 93.1 fL (80.0-100.0); Monocytes # (auto) 1.7 10 ^3/uL (0-1.3); Monocytes % (auto) 10.6 % (0.0-12.0); Neutrophils # (auto) 13.4 10 ^3/uL (1.6-8.6); Neutrophils % (auto) 84.5 % (37.0-80.0); Nucleated Red Blood Cells % 0.1 %; Red Blood Cells 2.82 10^6/uL (4.5-5.90); Red Cell Distribution Width 15.3 % (11.8-14.3); White Blood Cell 15.9 10^3/uL (4.4-10.8)
[2021-07-31] MEDS: metroNIDAZOLE 500MG/100ML 100 ML IV SCH (06:19)
[2021-07-31] MEDS: ACCU-CHEK COMFORT CURVE STRIP VI SCH ×4 (06:19→23:16)
[2021-07-31] MEDS: InsuLIN REG 1unit/0.01ml Soln (100units/ml) SC SCH ×4 (06:22→23:22)
[2021-07-31] MEDS: fentaNYL Drip 2500mCg/250mlNS 250 ML IV SCH (06:36)
[2021-07-31 08:24] LABS: Albumin 1.8 g/dL (3.4-5.0); Calcium 7.7 mg/dL (8.5-10.1); Magnesium 2.2 mg/dL (1.6-2.6); Potassium 4.6 mmol/L (3.5-5.1)
[2021-07-31 08:27] LABS: Bilirubin, Total 0.3 mg/dL (0.2-1.0); Phosphorus 3.2 mg/dL (2.5-4.90); Total Protein 5.9 g/dL (6.4-8.2)
[2021-07-31 08:47] LABS: BUN/Creatinine Ratio 22.1
[2021-07-31] MEDS: SODIUM CHLOR 0.9% PF (SALINE LOCK) 10ML VIAL/SYR IV SCH ×2 (10:37→20:06)
[2021-07-31] MEDS: BUMETANIDE 2.5mg/10ml (0.25 mg/ml) INJ IV SCH ×3 (10:37→22:26)
[2021-07-31] MEDS: PANTOPRAZOLE 40 MG/10 ML VIAL INJ IV SCH ×2 (10:37→22:27)
[2021-07-31] MEDS ORDERED: methylPREDNISolone SOD SUCC 125 MG/2 ML VL ONE (10:58)
[2021-07-31] MEDS ORDERED: methylPREDNISolone SOD SUCC 125 MG/2 ML VL IV ONE (11:00)
[2021-07-31] MEDS: INSULIN LANTUS (GLARGINE) 1 /0.01ml (100units/ml) SC SCH ×2 (12:30→22:29)
[2021-07-31] MEDS: ALBUTEROL SULF 2.5 MG/0.5ML(0.5%) NEB SOLN NEB SCH ×3 (13:29→21:51)
[2021-07-31] MEDS: IPRATROPIUM BROM 0.5 MG/2.5ML INH SOL NEB SCH ×3 (13:29→21:51)
[2021-07-31] MEDS: LINEZOLID 600MG/300ML 300 ML IV SCH ×2 (13:30→23:16)
[2021-07-31] MEDS: PROPOFOL 100 ML IV SCH ×2 (14:47→22:30)
[2021-07-31] MEDS: SODIUM FERR GLUC 62.5MG/5ML 125 MG in SODIUM CHL 0.9% 100 ML IV SCH (16:10)
[2021-07-31] MEDS: MEROPENEM 500MG IVPB 50 ML IV SCH ×2 (17:23→22:27)
[2021-07-31] MEDS: TPN*HIGH CONC* PER PHARMACY IV NR ×9 (19:42)
[2021-07-31] MEDS ORDERED: TPN PER PHARMACY IV NR ×10 (20:00)
[2021-07-31] MEDS: BUDESONIDE (INHALATION) 0.5 MG/2 ML NEB NEB SCH (21:51)
[2021-07-31] MEDS: ARTIFICIAL TEAR OPTH(EYE) OINT 3.5GM EACHEYE SCH (22:26)
[2021-08-01] VITALS (95 sets, daily range): BP systolic 74–157; BP diastolic 33–256
[2021-08-01] MEDS: fentaNYL Drip 2500mCg/250mlNS 250 ML IV SCH ×2 (02:09→23:01)
[2021-08-01] MEDS: IPRATROPIUM BROM 0.5 MG/2.5ML INH SOL NEB SCH ×5 (02:14→18:18)
[2021-08-01] MEDS: ALBUTEROL SULF 2.5 MG/0.5ML(0.5%) NEB SOLN NEB SCH ×5 (02:14→18:17)
[2021-08-01 04:47] LABS: Basophils # (auto) 0 10 ^3/uL (0-0.2); Basophils % (auto) 0.2 % (0.0-2.0); Eosinophils # (auto) 0 10 ^3/uL (0-0.8); Eosinophils % (auto) 0.1 % (0.0-7.0); Hematocrit 25.1 % (41.0-53.0); Hemoglobin 8.1 g/dL (13.5-17.5); Lymphocytes # (auto) 0.4 10 ^3/uL (0.4-5.4); Lymphocytes % (auto) 3.3 % (10.0-50.0); Mean Corpuscular Hemoglobin 30.4 pg (28.0-32.0); Mean Corpuscular Hgb Conc. 32.2 g/dL (32.0-36.0); Mean Corpuscular Volume 94.6 fL (80.0-100.0); Monocytes # (auto) 0.6 10 ^3/uL (0-1.3); Monocytes % (auto) 4.8 % (0.0-12.0); Neutrophils # (auto) 11.4 10 ^3/uL (1.6-8.6); Neutrophils % (auto) 91.6 % (37.0-80.0); Nucleated Red Blood Cells % 0.1 %; Red Blood Cells 2.66 10^6/uL (4.5-5.90); Red Cell Distribution Width 15.4 % (11.8-14.3); White Blood Cell 12.5 10^3/uL (4.4-10.8)
[2021-08-01] MEDS: BUMETANIDE 2.5mg/10ml (0.25 mg/ml) INJ IV SCH ×3 (05:50→22:21)
[2021-08-01] MEDS: InsuLIN REG 1unit/0.01ml Soln (100units/ml) SC SCH ×3 (05:54→17:48)
[2021-08-01] MEDS: ACCU-CHEK COMFORT CURVE STRIP VI SCH ×3 (05:55→17:44)
[2021-08-01] MEDS: BUDESONIDE (INHALATION) 0.5 MG/2 ML NEB NEB SCH (06:05)
[2021-08-01 08:03] LABS: Potassium 4.7 mmol/L (3.5-5.1)
[2021-08-01 08:04] LABS: Albumin 2.1 g/dL (3.4-5.0); BUN/Creatinine Ratio 28.9; Bilirubin, Total 0.3 mg/dL (0.2-1.0); Calcium 7.7 mg/dL (8.5-10.1); Magnesium 2.3 mg/dL (1.6-2.6); Phosphorus 4.7 mg/dL (2.5-4.90); Total Protein 5.7 g/dL (6.4-8.2)
[2021-08-01] MEDS: MEROPENEM 500MG IVPB 50 ML IV SCH ×2 (10:14→22:21)
[2021-08-01] MEDS: PANTOPRAZOLE 40 MG/10 ML VIAL INJ IV SCH ×2 (10:14→22:22)
[2021-08-01] MEDS: SODIUM CHLOR 0.9% PF (SALINE LOCK) 10ML VIAL/SYR IV SCH ×2 (10:14→22:22)
[2021-08-01] MEDS: methylPREDNISolone SOD SUCC 40 MG/ML VL IV SCH (10:14)
[2021-08-01] MEDS: INSULIN LANTUS (GLARGINE) 1 /0.01ml (100units/ml) SC SCH ×2 (10:18→22:25)
[2021-08-01] MEDS ORDERED: HEPARIN 1,000 UNITS/ml 1ML VIAL IV ONE (11:30)
[2021-08-01] MEDS: LINEZOLID 600MG/300ML 300 ML IV SCH (11:34)
[2021-08-01] MEDS: SODIUM FERR GLUC 62.5MG/5ML 125 MG in SODIUM CHL 0.9% 100 ML IV SCH (12:24)
[2021-08-01] MEDS: PROPOFOL 100 ML IV SCH ×3 (15:08→22:58)
[2021-08-01] MEDS: NOREPINEPHRINE 8 MG/250ML KIT 250 ML IV SCH (16:26)
[2021-08-01] MEDS ORDERED: TPN*HIGH CONC* PER PHARMACY IV NR ×8 (20:00)
[2021-08-01] MEDS: ARTIFICIAL TEAR OPTH(EYE) OINT 3.5GM EACHEYE SCH (22:14)
[2021-08-02] VITALS (80 sets, daily range): BP systolic 102–182; BP diastolic 41–68
[2021-08-02] MEDS: LINEZOLID 600MG/300ML 300 ML IV SCH ×2 (00:05→13:42)
[2021-08-02] MEDS: InsuLIN REG 1unit/0.01ml Soln (100units/ml) SC SCH ×5 (00:08→23:47)
[2021-08-02] MEDS: ALBUTEROL SULF 2.5 MG/0.5ML(0.5%) NEB SOLN NEB SCH ×7 (00:26→22:10)
[2021-08-02] MEDS: IPRATROPIUM BROM 0.5 MG/2.5ML INH SOL NEB SCH ×7 (00:27→22:10)
[2021-08-02] MEDS: BUDESONIDE (INHALATION) 0.5 MG/2 ML NEB NEB SCH ×3 (00:28→22:10)
[2021-08-02 04:49] LABS: Hemoglobin 7.9 g/dL (13.5-17.5)
[2021-08-02 04:51] LABS: Hematocrit 24.1 % (41.0-53.0); Mean Corpuscular Hemoglobin 30.6 pg (28.0-32.0); Mean Corpuscular Hgb Conc. 32.7 g/dL (32.0-36.0); Mean Corpuscular Volume 93.6 fL (80.0-100.0); Red Blood Cells 2.58 10^6/uL (4.5-5.90); Red Cell Distribution Width 15.6 % (11.8-14.3); White Blood Cell 15.8 10^3/uL (4.4-10.8)
[2021-08-02 05:05] LABS: Basophils % (manual) 0 (0.0-2.0); Blast Cells 0; Eosinophils % (manual) 0 (0-7); Metamyelocytes % 0; Myelocytes % 0; Promyelocytes % 0; Reactive Lymphocytes 0
[2021-08-02 05:07] LABS: Albumin 2.2 g/dL (3.4-5.0); Calcium 7.8 mg/dL (8.5-10.1); Magnesium 2.2 mg/dL (1.6-2.6); Potassium 4.6 mmol/L (3.5-5.1)
[2021-08-02 05:13] LABS: BUN/Creatinine Ratio 30.3; Bilirubin, Total 0.3 mg/dL (0.2-1.0); Phosphorus 5.7 mg/dL (2.5-4.90); Total Protein 5.7 g/dL (6.4-8.2)
[2021-08-02] MEDS: PROPOFOL 100 ML IV SCH ×2 (06:20→20:56)
[2021-08-02] MEDS: BUMETANIDE 2.5mg/10ml (0.25 mg/ml) INJ IV SCH ×3 (06:24→20:55)
[2021-08-02] MEDS: ACCU-CHEK COMFORT CURVE STRIP VI SCH ×5 (06:26→23:46)
[2021-08-02 06:58] LABS: Band Neutrophils % (manual) 9; Lymphocytes % (manual) 8 (10.0-50.0); Monocytes % (manual) 7 (0-12)
[2021-08-02] MEDS ORDERED: SODIUM CHL 0.9% 1000 ML BAG XX ONE (07:00)
[2021-08-02] MEDS: TPN*HIGH CONC* PER PHARMACY IV NR ×9 (07:47)
[2021-08-02] MEDS: MEROPENEM 500MG IVPB 50 ML IV SCH ×2 (09:26→20:56)
[2021-08-02] MEDS: PANTOPRAZOLE 40 MG/10 ML VIAL INJ IV SCH ×2 (10:15→20:56)
[2021-08-02] MEDS: SODIUM CHLOR 0.9% PF (SALINE LOCK) 10ML VIAL/SYR IV SCH ×2 (10:15→20:56)
[2021-08-02] MEDS: methylPREDNISolone SOD SUCC 40 MG/ML VL IV SCH (10:16)
[2021-08-02] MEDS: INSULIN LANTUS (GLARGINE) 1 /0.01ml (100units/ml) SC SCH ×2 (10:20→21:25)
[2021-08-02] MEDS: SODIUM FERR GLUC 62.5MG/5ML 125 MG in SODIUM CHL 0.9% 100 ML IV SCH (12:00)
[2021-08-02] MEDS: NOREPINEPHRINE 8 MG/250ML KIT 250 ML IV SCH (14:04)
[2021-08-02] MEDS ORDERED: ALBUMIN 25% 100 ML IV ONE (15:45)
[2021-08-02] MEDS ORDERED: TPN*HIGH CONC* PER PHARMACY IV NR ×8 (20:00)
[2021-08-02] MEDS: ARTIFICIAL TEAR OPTH(EYE) OINT 3.5GM EACHEYE SCH (20:55)
[2021-08-02] MEDS ORDERED: EPOETIN ALFA-EPBX 10,000 UNIT/1ML VIAL SC ONE (21:00)
[2021-08-03] VITALS (80 sets, daily range): BP systolic 86–137; BP diastolic 41–63
[2021-08-03] MEDS: fentaNYL Drip 2500mCg/250mlNS 250 ML IV SCH ×3 (01:16→14:45)
[2021-08-03] MEDS: PROPOFOL 100 ML IV SCH ×8 (02:13→18:55)
[2021-08-03] MEDS: IPRATROPIUM BROM 0.5 MG/2.5ML INH SOL NEB SCH ×6 (02:18→22:28)
[2021-08-03] MEDS: ALBUTEROL SULF 2.5 MG/0.5ML(0.5%) NEB SOLN NEB SCH ×6 (02:18→22:28)
[2021-08-03 04:46] LABS: Hemoglobin 7.8 g/dL (13.5-17.5)
[2021-08-03 04:48] LABS: Hematocrit 23.4 % (41.0-53.0); Mean Corpuscular Hemoglobin 30.4 pg (28.0-32.0); Mean Corpuscular Hgb Conc. 33.3 g/dL (32.0-36.0); Mean Corpuscular Volume 91.3 fL (80.0-100.0); Red Blood Cells 2.57 10^6/uL (4.5-5.90); Red Cell Distribution Width 15.1 % (11.8-14.3); White Blood Cell 13.6 10^3/uL (4.4-10.8)
[2021-08-03 05:04] LABS: Basophils % (manual) 0 (0.0-2.0); Blast Cells 0; Eosinophils % (manual) 0 (0-7); Metamyelocytes % 0; Promyelocytes % 0; Reactive Lymphocytes 0
[2021-08-03 05:18] LABS: Albumin 2.6 g/dL (3.4-5.0); BUN/Creatinine Ratio 30.7; Bilirubin, Total 0.3 mg/dL (0.2-1.0); Calcium 7.7 mg/dL (8.5-10.1); Magnesium 2.4 mg/dL (1.6-2.6); Phosphorus 4.9 mg/dL (2.5-4.90); Total Protein 5.9 g/dL (6.4-8.2)
[2021-08-03] MEDS: BUMETANIDE 2.5mg/10ml (0.25 mg/ml) INJ IV SCH ×3 (06:08→21:34)
[2021-08-03] MEDS: ACCU-CHEK COMFORT CURVE STRIP VI SCH ×3 (06:11→18:07)
[2021-08-03] MEDS: InsuLIN REG 1unit/0.01ml Soln (100units/ml) SC SCH ×3 (06:13→18:33)
[2021-08-03] MEDS: BUDESONIDE (INHALATION) 0.5 MG/2 ML NEB NEB SCH ×2 (06:45→22:28)
[2021-08-03 07:03] LABS: Band Neutrophils % (manual) 4; Lymphocytes % (manual) 7 (10.0-50.0); Monocytes % (manual) 3 (0-12); Myelocytes % 4
[2021-08-03] MEDS: SODIUM CHLOR 0.9% PF (SALINE LOCK) 10ML VIAL/SYR IV SCH ×2 (09:49→21:34)
[2021-08-03] MEDS: MEROPENEM 500MG IVPB 50 ML IV SCH (10:03)
[2021-08-03] MEDS: PANTOPRAZOLE 40 MG/10 ML VIAL INJ IV SCH ×2 (10:03→21:34)
[2021-08-03] MEDS: INSULIN LANTUS (GLARGINE) 1 /0.01ml (100units/ml) SC SCH ×2 (10:06→21:46)
[2021-08-03] MEDS: LINEZOLID 600MG/300ML 300 ML IV SCH ×2 (12:39)
[2021-08-03] MEDS: NOREPINEPHRINE 8 MG/250ML KIT 250 ML IV SCH (13:52)
[2021-08-03] MEDS: SODIUM FERR GLUC 62.5MG/5ML 125 MG in SODIUM CHL 0.9% 100 ML IV SCH (14:44)
[2021-08-03] MEDS: DOXYCYCLINE 100MG/250ML 250 ML IV SCH (15:56)
[2021-08-03] MEDS ORDERED: TPN*HIGH CONC* PER PHARMACY IV NR ×12 (20:00)
[2021-08-03] MEDS: ARTIFICIAL TEAR OPTH(EYE) OINT 3.5GM EACHEYE SCH (21:33)
[2021-08-04] VITALS (86 sets, daily range): BP systolic 87–212; BP diastolic 34–109
[2021-08-04] MEDS: ALBUTEROL SULF 2.5 MG/0.5ML(0.5%) NEB SOLN NEB SCH ×6 (02:00→22:20)
[2021-08-04] MEDS: IPRATROPIUM BROM 0.5 MG/2.5ML INH SOL NEB SCH ×6 (02:00→22:20)
[2021-08-04] MEDS: DOXYCYCLINE 100MG/250ML 250 ML IV SCH ×2 (02:15→17:33)
[2021-08-04 04:01] LABS: Hemoglobin 7.9 g/dL (13.5-17.5); Mean Corpuscular Hgb Conc. 32.8 g/dL (32.0-36.0); Red Blood Cells 2.64 10^6/uL (4.5-5.90)
[2021-08-04 04:02] LABS: Mean Corpuscular Hemoglobin 29.8 pg (28.0-32.0)
[2021-08-04 04:07] LABS: Basophils % (manual) 0 (0.0-2.0); Blast Cells 0; Eosinophils % (manual) 0 (0-7); Promyelocytes % 0; Reactive Lymphocytes 0
[2021-08-04 04:20] LABS: Calcium 7.6 mg/dL (8.5-10.1); Potassium 3.5 mmol/L (3.5-5.1)
[2021-08-04 04:23] LABS: Albumin 2.1 g/dL (3.4-5.0); BUN/Creatinine Ratio 32.5; Magnesium 2.1 mg/dL (1.6-2.6)
[2021-08-04 04:25] LABS: Bilirubin, Total 0.4 mg/dL (0.2-1.0); Phosphorus 5.4 mg/dL (2.5-4.90); Total Protein 5.2 g/dL (6.4-8.2)
[2021-08-04 04:28] LABS: Band Neutrophils % (manual) 1; Lymphocytes % (manual) 19 (10.0-50.0); Metamyelocytes % 1; Monocytes % (manual) 6 (0-12); Myelocytes % 2
[2021-08-04] MEDS: fentaNYL Drip 2500mCg/250mlNS 250 ML IV SCH (06:00)
[2021-08-04] MEDS: ACCU-CHEK COMFORT CURVE STRIP VI SCH ×5 (06:00→23:30)
[2021-08-04] MEDS: BUMETANIDE 2.5mg/10ml (0.25 mg/ml) INJ IV SCH ×3 (06:00→22:45)
[2021-08-04] MEDS: InsuLIN REG 1unit/0.01ml Soln (100units/ml) SC SCH ×5 (06:00→23:30)
[2021-08-04] MEDS: BUDESONIDE (INHALATION) 0.5 MG/2 ML NEB NEB SCH ×2 (06:54→22:20)
[2021-08-04] MEDS ORDERED: MIDODRINE HCL 10 MG TAB PO ONE (07:00)
[2021-08-04] MEDS ORDERED: SODIUM CHL 0.9% 1000 ML BAG XX ONE (07:00)
[2021-08-04] MEDS: cefTRIAXone 1GM/50ML D5W 50 ML IV SCH (11:28)
[2021-08-04] MEDS: PANTOPRAZOLE 40 MG/10 ML VIAL INJ IV SCH ×2 (11:28→22:45)
[2021-08-04] MEDS: SODIUM CHLOR 0.9% PF (SALINE LOCK) 10ML VIAL/SYR IV SCH ×2 (11:29→22:45)
[2021-08-04] MEDS: INSULIN LANTUS (GLARGINE) 1 /0.01ml (100units/ml) SC SCH (11:29)
[2021-08-04] MEDS: SODIUM FERR GLUC 62.5MG/5ML 125 MG in SODIUM CHL 0.9% 100 ML IV SCH (12:00)
[2021-08-04] MEDS: NOREPINEPHRINE 8 MG/250ML KIT 250 ML IV SCH (12:08)
[2021-08-04] MEDS: PROPOFOL 100 ML IV SCH (12:43)
[2021-08-04] MEDS ORDERED: POTASSIUM CHL 20MEQ/100ML 100 ML IV ONE (12:45)
[2021-08-04] MEDS: ALBUMIN 25% 50 ML IV SCH ×3 (16:09→18:10)
[2021-08-04] MEDS ORDERED: [UNRECOGNIZED DRUG - OTHER] IV NR ×10 (20:00)
[2021-08-04] MEDS ORDERED: POTASSIUM CHLORIDE IV NR ×10 (20:00)
[2021-08-04] MEDS ORDERED: SODIUM CHLORIDE IV NR ×10 (20:00)
[2021-08-04] MEDS ORDERED: SODIUM ACETATE IV NR ×10 (20:00)
[2021-08-04] MEDS ORDERED: EPOETIN ALFA-EPBX 10,000 UNIT/1ML VIAL SC ONE (21:00)
[2021-08-04] MEDS: ARTIFICIAL TEAR OPTH(EYE) OINT 3.5GM EACHEYE SCH (22:45)
[2021-08-05] VITALS (92 sets, daily range): BP systolic 105–199; BP diastolic 31–80
[2021-08-05] MEDS: IPRATROPIUM BROM 0.5 MG/2.5ML INH SOL NEB SCH ×6 (02:04→22:24)
[2021-08-05] MEDS: ALBUTEROL SULF 2.5 MG/0.5ML(0.5%) NEB SOLN NEB SCH ×6 (02:04→22:24)
[2021-08-05] MEDS: DOXYCYCLINE 100MG/250ML 250 ML IV SCH ×2 (02:21→14:17)
[2021-08-05 04:07] LABS: Hematocrit 27.8 % (41.0-53.0); Hemoglobin 9.2 g/dL (13.5-17.5); Mean Corpuscular Hemoglobin 30.1 pg (28.0-32.0); Mean Corpuscular Volume 91.2 fL (80.0-100.0); Red Blood Cells 3.05 10^6/uL (4.5-5.90); Red Cell Distribution Width 15.4 % (11.8-14.3); White Blood Cell 17.4 10^3/uL (4.4-10.8)
[2021-08-05 05:12] LABS: Basophils % (manual) 0 (0.0-2.0); Blast Cells 0; Eosinophils % (manual) 0 (0-7); Promyelocytes % 0; Reactive Lymphocytes 0
[2021-08-05 05:25] LABS: Potassium 3.2 mmol/L (3.5-5.1)
[2021-08-05 05:32] LABS: Albumin 2.3 g/dL (3.4-5.0); BUN/Creatinine Ratio 35.1; Bilirubin, Total 0.5 mg/dL (0.2-1.0); Calcium 7.8 mg/dL (8.5-10.1); Magnesium 2.2 mg/dL (1.6-2.6); Phosphorus 3.8 mg/dL (2.5-4.90); Pre Albumin 30.9 mg/dL (20.0-40.0); Total Protein 5.6 g/dL (6.4-8.2)
[2021-08-05] MEDS: InsuLIN REG 1unit/0.01ml Soln (100units/ml) SC SCH ×4 (05:54→23:22)
[2021-08-05] MEDS: ACCU-CHEK COMFORT CURVE STRIP VI SCH ×3 (05:57→18:00)
[2021-08-05] MEDS: BUMETANIDE 2.5mg/10ml (0.25 mg/ml) INJ IV SCH ×3 (06:09→22:00)
[2021-08-05] MEDS: hydrALAZINE HCL 20 MG/ML VL IV PRN (06:11)
[2021-08-05 06:20] LABS: Band Neutrophils % (manual) 4; Lymphocytes % (manual) 12 (10.0-50.0); Metamyelocytes % 3; Monocytes % (manual) 1 (0-12); Myelocytes % 2
[2021-08-05] MEDS: BUDESONIDE (INHALATION) 0.5 MG/2 ML NEB NEB SCH ×2 (06:26→22:00)
[2021-08-05] MEDS: LABETALOL HCL 5 MG/ML 4ML SYRINGE IV PRN (08:25)
[2021-08-05] MEDS: cefTRIAXone 1GM/50ML D5W 50 ML IV SCH (09:43)
[2021-08-05] MEDS: SODIUM CHLOR 0.9% PF (SALINE LOCK) 10ML VIAL/SYR IV SCH ×2 (09:43→22:35)
[2021-08-05] MEDS: PANTOPRAZOLE 40 MG/10 ML VIAL INJ IV SCH ×2 (09:43→22:35)
[2021-08-05] MEDS: INSULIN LANTUS (GLARGINE) 1 /0.01ml (100units/ml) SC SCH ×2 (09:51→22:00)
[2021-08-05] MEDS ORDERED: metOLazone 5 MG TAB PO ONE (10:15)
[2021-08-05] MEDS ORDERED: SODIUM CHL 0.9% 1000 ML BAG XX ONE (10:15)
[2021-08-05] MEDS: SODIUM FERR GLUC 62.5MG/5ML 125 MG in SODIUM CHL 0.9% 100 ML IV SCH (10:57)
[2021-08-05] MEDS ORDERED: hydrALAZINE HCL 20 MG/ML VL IV PRN (11:15)
[2021-08-05] MEDS ORDERED: POTASSIUM CHL 20MEQ/100ML 100 ML IV ONE (11:30)
[2021-08-05] MEDS: PROPOFOL 100 ML IV SCH (12:10)
[2021-08-05] MEDS: NOREPINEPHRINE 8 MG/250ML KIT 250 ML IV SCH (14:25)
[2021-08-05] MEDS ORDERED: ALBUMIN 25% 100 ML IV ONE (14:53)
[2021-08-05] MEDS: fentaNYL Drip 2500mCg/250mlNS 250 ML IV SCH (18:09)
[2021-08-05] MEDS ORDERED: TPN*HIGH CONC* PER PHARMACY IV NR ×9 (20:00)
[2021-08-05 20:50] LABS: BUN/Creatinine Ratio 33.6; Calcium 8.1 mg/dL (8.5-10.1); Potassium 3.6 mmol/L (3.5-5.1)
[2021-08-05] MEDS ORDERED: EPOETIN ALFA-EPBX 10,000 UNIT/1ML VIAL SC ONE (21:00)
[2021-08-05] MEDS: ARTIFICIAL TEAR OPTH(EYE) OINT 3.5GM EACHEYE SCH (22:35)
[2021-08-06] VITALS (95 sets, daily range): BP systolic 79–217; BP diastolic 37–85
[2021-08-06] MEDS: IPRATROPIUM BROM 0.5 MG/2.5ML INH SOL NEB SCH ×6 (02:13→22:13)
[2021-08-06] MEDS: ALBUTEROL SULF 2.5 MG/0.5ML(0.5%) NEB SOLN NEB SCH ×6 (02:13→22:13)
[2021-08-06] MEDS: DOXYCYCLINE 100MG/250ML 250 ML IV SCH ×2 (02:15→14:37)
[2021-08-06] MEDS: fentaNYL Drip 2500mCg/250mlNS 250 ML IV SCH (06:00)
[2021-08-06] MEDS: ACCU-CHEK COMFORT CURVE STRIP VI SCH ×4 (06:00→18:12)
[2021-08-06] MEDS: BUMETANIDE 2.5mg/10ml (0.25 mg/ml) INJ IV SCH ×2 (06:00→14:38)
[2021-08-06 07:05] LABS: Hematocrit 25.9 % (41.0-53.0); Hemoglobin 8.7 g/dL (13.5-17.5); Mean Corpuscular Hgb Conc. 33.5 g/dL (32.0-36.0); Mean Corpuscular Volume 92.4 fL (80.0-100.0); Red Cell Distribution Width 15.4 % (11.8-14.3); White Blood Cell 15.5 10^3/uL (4.4-10.8)
[2021-08-06 07:08] LABS: Basophils % (manual) 0 (0.0-2.0); Blast Cells 0; Metamyelocytes % 0; Myelocytes % 0; Promyelocytes % 0; Reactive Lymphocytes 0
[2021-08-06] MEDS: BUDESONIDE (INHALATION) 0.5 MG/2 ML NEB NEB SCH ×2 (07:17→18:35)
[2021-08-06] MEDS: InsuLIN REG 1unit/0.01ml Soln (100units/ml) SC SCH ×3 (07:30→18:13)
[2021-08-06 07:37] LABS: Albumin 2.3 g/dL (3.4-5.0); Calcium 8.3 mg/dL (8.5-10.1); Magnesium 2.2 mg/dL (1.6-2.6); Potassium 3.3 mmol/L (3.5-5.1)
[2021-08-06 07:40] LABS: BUN/Creatinine Ratio 37.6; Bilirubin, Total 0.5 mg/dL (0.2-1.0); Phosphorus 4.1 mg/dL (2.5-4.90); Total Protein 5.7 g/dL (6.4-8.2)
[2021-08-06] MEDS: cefTRIAXone 1GM/50ML D5W 50 ML IV SCH (09:08)
[2021-08-06] MEDS: INSULIN LANTUS (GLARGINE) 1 /0.01ml (100units/ml) SC SCH (10:00)
[2021-08-06] MEDS: SODIUM CHLOR 0.9% PF (SALINE LOCK) 10ML VIAL/SYR IV SCH (10:38)
[2021-08-06] MEDS: LABETALOL HCL 5 MG/ML 4ML SYRINGE IV PRN (10:38)
[2021-08-06] MEDS: POTASSIUM CHL 20MEQ/100ML 100 ML IV SCH ×2 (10:38→12:38)
[2021-08-06] MEDS: PANTOPRAZOLE 40 MG/10 ML VIAL INJ IV SCH (10:38)
[2021-08-06] MEDS: hydrALAZINE HCL 20 MG/ML VL IV PRN (11:33)
[2021-08-06 12:02] LABS: Band Neutrophils % (manual) 6; Eosinophils % (manual) 1 (0-7); Lymphocytes % (manual) 9 (10.0-50.0); Monocytes % (manual) 7 (0-12)
[2021-08-06] MEDS: PROPOFOL 100 ML IV SCH ×2 (12:36→17:47)
[2021-08-06] MEDS: NOREPINEPHRINE 8 MG/250ML KIT 250 ML IV SCH (13:45)
[2021-08-06] MEDS: SODIUM FERR GLUC 62.5MG/5ML 125 MG in SODIUM CHL 0.9% 100 ML IV SCH (15:57)
[2021-08-06] MEDS ORDERED: ACETYLCYSTEINE 10 %(100MG/ML) SOL 4ML ONE (18:12)
[2021-08-06] MEDS: ACETYLCYSTEINE 10 %(100MG/ML) SOL 4ML NEB SCH ×2 (18:37→22:13)
[2021-08-06] MEDS ORDERED: TPN*HIGH CONC* PER PHARMACY IV NR ×9 (20:00)
[2021-08-07] VITALS (80 sets, daily range): BP systolic 82–181; BP diastolic 37–79
[2021-08-07] MEDS: ARTIFICIAL TEAR OPTH(EYE) OINT 3.5GM EACHEYE SCH ×2 (00:32→21:45)
[2021-08-07] MEDS: BUMETANIDE 2.5mg/10ml (0.25 mg/ml) INJ IV SCH ×4 (00:33→21:46)
[2021-08-07] MEDS: PANTOPRAZOLE 40 MG/10 ML VIAL INJ IV SCH ×2 (00:33→10:00)
[2021-08-07] MEDS: SODIUM CHLOR 0.9% PF (SALINE LOCK) 10ML VIAL/SYR IV SCH ×3 (00:34→21:47)
[2021-08-07] MEDS: INSULIN LANTUS (GLARGINE) 1 /0.01ml (100units/ml) SC SCH ×3 (00:39→21:48)
[2021-08-07] MEDS: ACCU-CHEK COMFORT CURVE STRIP VI SCH ×4 (00:40→17:58)
[2021-08-07] MEDS: InsuLIN REG 1unit/0.01ml Soln (100units/ml) SC SCH ×4 (00:47→18:25)
[2021-08-07] MEDS: ACETYLCYSTEINE 10 %(100MG/ML) SOL 4ML NEB SCH ×6 (02:09→22:13)
[2021-08-07] MEDS: IPRATROPIUM BROM 0.5 MG/2.5ML INH SOL NEB SCH ×6 (02:09→22:13)
[2021-08-07] MEDS: ALBUTEROL SULF 2.5 MG/0.5ML(0.5%) NEB SOLN NEB SCH ×6 (02:09→22:13)
[2021-08-07] MEDS: DOXYCYCLINE 100MG/250ML 250 ML IV SCH ×2 (02:28→17:58)
[2021-08-07] MEDS: fentaNYL Drip 2500mCg/250mlNS 250 ML IV SCH (06:00)
[2021-08-07] MEDS: BUDESONIDE (INHALATION) 0.5 MG/2 ML NEB NEB SCH ×2 (06:41→22:13)
[2021-08-07 08:18] LABS: Albumin 2.1 g/dL (3.4-5.0); Calcium 8.5 mg/dL (8.5-10.1); Potassium 3.8 mmol/L (3.5-5.1)
[2021-08-07 08:20] LABS: BUN/Creatinine Ratio 38.4
[2021-08-07 08:30] LABS: Bilirubin, Total 0.3 mg/dL (0.2-1.0); Magnesium 1.9 mg/dL (1.6-2.6); Phosphorus 5.6 mg/dL (2.5-4.90); Total Protein 5.5 g/dL (6.4-8.2)
[2021-08-07] MEDS: cefTRIAXone 1GM/50ML D5W 50 ML IV SCH (09:41)
[2021-08-07] MEDS ORDERED: metOLazone 5 MG TAB PO ONE (11:00)
[2021-08-07] MEDS: NOREPINEPHRINE 8 MG/250ML KIT 250 ML IV SCH (13:45)
[2021-08-07] MEDS: SODIUM FERR GLUC 62.5MG/5ML 125 MG in SODIUM CHL 0.9% 100 ML IV SCH (15:02)
[2021-08-07] MEDS: LABETALOL HCL 5 MG/ML 4ML SYRINGE IV PRN (17:51)
[2021-08-07] MEDS ORDERED: TPN PER PHARMACY IV NR ×7 (20:00)
[2021-08-07] MEDS ORDERED: TPN*HIGH CONC* PER PHARMACY IV NR ×7 (20:00)
[2021-08-08] VITALS (71 sets, daily range): BP systolic 90–191; BP diastolic 39–88
[2021-08-08] MEDS: DOXYCYCLINE 100MG/250ML 250 ML IV SCH ×2 (02:15→15:03)
[2021-08-08] MEDS: ALBUTEROL SULF 2.5 MG/0.5ML(0.5%) NEB SOLN NEB SCH ×6 (02:19→21:55)
[2021-08-08] MEDS: IPRATROPIUM BROM 0.5 MG/2.5ML INH SOL NEB SCH ×6 (02:19→21:55)
[2021-08-08] MEDS: ACETYLCYSTEINE 10 %(100MG/ML) SOL 4ML NEB SCH ×6 (02:19→21:55)
[2021-08-08 05:47] LABS: Potassium 5.3 mmol/L (3.5-5.1)
[2021-08-08 05:54] LABS: BUN/Creatinine Ratio 39.2; Calcium 8.4 mg/dL (8.5-10.1)
[2021-08-08 05:56] LABS: Bilirubin, Total 0.4 mg/dL (0.2-1.0); Phosphorus 5.5 mg/dL (2.5-4.90); Total Protein 5.7 g/dL (6.4-8.2)
[2021-08-08] MEDS: ACCU-CHEK COMFORT CURVE STRIP VI SCH ×4 (06:00→18:00)
[2021-08-08] MEDS: BUDESONIDE (INHALATION) 0.5 MG/2 ML NEB NEB SCH ×2 (06:13→18:55)
[2021-08-08] MEDS: BUMETANIDE 2.5mg/10ml (0.25 mg/ml) INJ IV SCH ×3 (06:30→21:42)
[2021-08-08] MEDS: InsuLIN REG 1unit/0.01ml Soln (100units/ml) SC SCH ×4 (06:30→18:00)
[2021-08-08 07:28] LABS: INR 1.11 (0.9-1.15); Partial Thromboplastin Time 23.1 sec (23.6-33.0)
[2021-08-08] MEDS: cefTRIAXone 1GM/50ML D5W 50 ML IV SCH (09:54)
[2021-08-08] MEDS: PANTOPRAZOLE 40 MG/10 ML VIAL INJ IV SCH (09:54)
[2021-08-08] MEDS: SODIUM CHLOR 0.9% PF (SALINE LOCK) 10ML VIAL/SYR IV SCH ×2 (10:10→21:42)
[2021-08-08] MEDS: INSULIN LANTUS (GLARGINE) 1 /0.01ml (100units/ml) SC SCH ×2 (10:10→21:43)
[2021-08-08] MEDS: PROPOFOL 100 ML IV SCH (10:17)
[2021-08-08] MEDS: SODIUM FERR GLUC 62.5MG/5ML 125 MG in SODIUM CHL 0.9% 100 ML IV SCH (12:30)
[2021-08-08] MEDS ORDERED: ALBUMIN 25% 100 ML IV ONE ×2 (12:33→13:00)
[2021-08-08] MEDS: NOREPINEPHRINE 8 MG/250ML KIT 250 ML IV SCH (13:45)
[2021-08-08] MEDS: hydrALAZINE HCL 20 MG/ML VL IV PRN ×3 (15:14→23:35)
[2021-08-08] MEDS ORDERED: TPN PER PHARMACY IV NR ×6 (20:00)
[2021-08-08] MEDS ORDERED: TPN*HIGH CONC* PER PHARMACY IV NR ×6 (20:00)
[2021-08-08] MEDS: LABETALOL HCL 5 MG/ML 4ML SYRINGE IV PRN (21:11)
[2021-08-08] MEDS ORDERED: LORazepam 2MG/ML-1ML VIAL IV PRN (21:30)
[2021-08-08] MEDS: ARTIFICIAL TEAR OPTH(EYE) OINT 3.5GM EACHEYE SCH (21:41)
[2021-08-08] MEDS: MORPHINE SULFATE INJECTION 2 MG/ML SYRG IV PRN (23:36)
[2021-08-09] VITALS (34 sets, daily range): BP systolic 144–184; BP diastolic 62–79
[2021-08-09] MEDS: InsuLIN REG 1unit/0.01ml Soln (100units/ml) SC SCH ×4 (00:04→17:40)
[2021-08-09] MEDS: ACCU-CHEK COMFORT CURVE STRIP VI SCH ×4 (00:05→18:28)
[2021-08-09] MEDS: ACETYLCYSTEINE 10 %(100MG/ML) SOL 4ML NEB SCH ×6 (02:16→22:09)
[2021-08-09] MEDS: ALBUTEROL SULF 2.5 MG/0.5ML(0.5%) NEB SOLN NEB SCH ×6 (02:16→22:09)
[2021-08-09] MEDS: IPRATROPIUM BROM 0.5 MG/2.5ML INH SOL NEB SCH ×6 (02:16→22:09)
[2021-08-09] MEDS: DOXYCYCLINE 100MG/250ML 250 ML IV SCH ×2 (03:40→14:15)
[2021-08-09] MEDS: hydrALAZINE HCL 20 MG/ML VL IV PRN (03:42)
[2021-08-09 05:00] LABS: Albumin 2.7 g/dL (3.4-5.0); BUN/Creatinine Ratio 39.7; Calcium 8.8 mg/dL (8.5-10.1); Magnesium 2.1 mg/dL (1.6-2.6); Potassium 3.9 mmol/L (3.5-5.1)
[2021-08-09 05:03] LABS: Bilirubin, Total 0.5 mg/dL (0.2-1.0); Phosphorus 4.5 mg/dL (2.5-4.90); Total Protein 6.5 g/dL (6.4-8.2)
[2021-08-09] MEDS: BUMETANIDE 2.5mg/10ml (0.25 mg/ml) INJ IV SCH ×2 (06:00→17:39)
[2021-08-09] MEDS: BUDESONIDE (INHALATION) 0.5 MG/2 ML NEB NEB SCH ×2 (06:20→22:09)
[2021-08-09] MEDS: cefTRIAXone 1GM/50ML D5W 50 ML IV SCH (09:00)
[2021-08-09 09:23] LABS: Hematocrit 25.9 % (41.0-53.0); Hemoglobin 8.5 g/dL (13.5-17.5); Mean Corpuscular Hemoglobin 30.9 pg (28.0-32.0); Mean Corpuscular Hgb Conc. 32.8 g/dL (32.0-36.0); Red Blood Cells 2.76 10^6/uL (4.5-5.90); Red Cell Distribution Width 16.1 % (11.8-14.3)
[2021-08-09 09:35] LABS: Basophils % (manual) 0 (0.0-2.0); Blast Cells 0; Myelocytes % 0; Promyelocytes % 0; Reactive Lymphocytes 0
[2021-08-09] MEDS: SODIUM CHLOR 0.9% PF (SALINE LOCK) 10ML VIAL/SYR IV SCH ×2 (10:25→21:40)
[2021-08-09] MEDS: PANTOPRAZOLE 40 MG/10 ML VIAL INJ IV SCH (10:25)
[2021-08-09] MEDS: INSULIN LANTUS (GLARGINE) 1 /0.01ml (100units/ml) SC SCH ×2 (10:26→21:42)
[2021-08-09 10:45] LABS: Band Neutrophils % (manual) 2; Eosinophils % (manual) 1 (0-7); Lymphocytes % (manual) 6 (10.0-50.0); Metamyelocytes % 1; Monocytes % (manual) 1 (0-12)
[2021-08-09] MEDS ORDERED: TPN PER PHARMACY IV NR ×7 (20:00)
[2021-08-09] MEDS: ARTIFICIAL TEAR OPTH(EYE) OINT 3.5GM EACHEYE SCH (21:40)
[2021-08-10] VITALS (45 sets, daily range): BP systolic 123–191; BP diastolic 45–72
[2021-08-10] MEDS: ACCU-CHEK COMFORT CURVE STRIP VI SCH ×4 (00:02→17:55)
[2021-08-10] MEDS: InsuLIN REG 1unit/0.01ml Soln (100units/ml) SC SCH ×4 (00:04→17:55)
[2021-08-10] MEDS: IPRATROPIUM BROM 0.5 MG/2.5ML INH SOL NEB SCH ×5 (02:14→18:16)
[2021-08-10] MEDS: ALBUTEROL SULF 2.5 MG/0.5ML(0.5%) NEB SOLN NEB SCH ×5 (02:14→18:15)
[2021-08-10] MEDS: ACETYLCYSTEINE 10 %(100MG/ML) SOL 4ML NEB SCH ×5 (02:14→18:17)
[2021-08-10] MEDS: hydrALAZINE HCL 20 MG/ML VL IV PRN ×2 (03:26→15:38)
[2021-08-10] MEDS: LABETALOL HCL 5 MG/ML 4ML SYRINGE IV PRN ×2 (03:34→06:07)
[2021-08-10 05:12] LABS: Potassium 3.8 mmol/L (3.5-5.1)
[2021-08-10 05:18] LABS: Albumin 2.5 g/dL (3.4-5.0); BUN/Creatinine Ratio 44.4; Calcium 8.9 mg/dL (8.5-10.1); Magnesium 1.9 mg/dL (1.6-2.6)
[2021-08-10 05:20] LABS: Bilirubin, Total 0.4 mg/dL (0.2-1.0); Phosphorus 4.2 mg/dL (2.5-4.90); Total Protein 6.6 g/dL (6.4-8.2)
[2021-08-10] MEDS: BUMETANIDE 2.5mg/10ml (0.25 mg/ml) INJ IV SCH ×2 (06:07→17:55)
[2021-08-10] MEDS: BUDESONIDE (INHALATION) 0.5 MG/2 ML NEB NEB SCH ×2 (06:21→18:16)
[2021-08-10 09:14] LABS: Hematocrit 24.9 % (41.0-53.0); Mean Corpuscular Hgb Conc. 32.2 g/dL (32.0-36.0); White Blood Cell 13.3 10^3/uL (4.4-10.8)
[2021-08-10 09:16] LABS: Mean Corpuscular Hemoglobin 30.5 pg (28.0-32.0); Mean Corpuscular Volume 94.5 fL (80.0-100.0); Red Blood Cells 2.64 10^6/uL (4.5-5.90); Red Cell Distribution Width 16.2 % (11.8-14.3)
[2021-08-10] MEDS: SODIUM CHLOR 0.9% PF (SALINE LOCK) 10ML VIAL/SYR IV SCH ×2 (09:30→22:00)
[2021-08-10] MEDS: PANTOPRAZOLE 40 MG/10 ML VIAL INJ IV SCH (09:30)
[2021-08-10 09:31] LABS: Band Neutrophils % (manual) 0; Basophils % (manual) 0 (0.0-2.0); Blast Cells 0; Metamyelocytes % 0; Myelocytes % 0; Promyelocytes % 0; Reactive Lymphocytes 0
[2021-08-10] MEDS: INSULIN LANTUS (GLARGINE) 1 /0.01ml (100units/ml) SC SCH ×2 (09:36→22:00)
[2021-08-10 09:54] LABS: Eosinophils % (manual) 2 (0-7); Lymphocytes % (manual) 3 (10.0-50.0); Monocytes % (manual) 5 (0-12)
[2021-08-10] MEDS: amLODIPine BESYLATE 5 MG TAB GT SCH (10:06)
[2021-08-10] MEDS: METOPROLOL TARTRATE 25 MG TAB GT SCH ×2 (10:07→22:00)
[2021-08-10] MEDS: Glucerna 1.2 Cal 1Liter BOTTLE GT SCH (15:34)
[2021-08-10] MEDS ORDERED: TPN*HIGH CONC* PER PHARMACY IV NR ×18 (20:00)
[2021-08-10] MEDS: ARTIFICIAL TEAR OPTH(EYE) OINT 3.5GM EACHEYE SCH (22:00)
[2021-08-11] VITALS (52 sets, daily range): BP systolic 132–176; BP diastolic 59–82
[2021-08-11] MEDS: IPRATROPIUM BROM 0.5 MG/2.5ML INH SOL NEB SCH ×4 (00:11→18:27)
[2021-08-11] MEDS: ALBUTEROL SULF 2.5 MG/0.5ML(0.5%) NEB SOLN NEB SCH ×4 (00:11→18:27)
[2021-08-11] MEDS: ACETYLCYSTEINE 10 %(100MG/ML) SOL 4ML NEB SCH ×2 (00:11→06:33)
[2021-08-11] MEDS: LABETALOL HCL 5 MG/ML 4ML SYRINGE IV PRN (00:40)
[2021-08-11] MEDS: hydrALAZINE HCL 20 MG/ML VL IV PRN (04:20)
[2021-08-11 04:28] LABS: Basophils # (auto) 0.1 10 ^3/uL (0-0.2); Basophils % (auto) 0.8 % (0.0-2.0); Eosinophils # (auto) 0.3 10 ^3/uL (0-0.8); Lymphocytes # (auto) 0.7 10 ^3/uL (0.4-5.4)
[2021-08-11 04:32] LABS: Eosinophils % (auto) 2.5 % (0.0-7.0); Hematocrit 23.3 % (41.0-53.0); Hemoglobin 7.7 g/dL (13.5-17.5); Mean Corpuscular Volume 93.8 fL (80.0-100.0); Monocytes # (auto) 1.7 10 ^3/uL (0-1.3); Monocytes % (auto) 14.9 % (0.0-12.0); Neutrophils # (auto) 8.8 10 ^3/uL (1.6-8.6); Neutrophils % (auto) 75.8 % (37.0-80.0); Red Blood Cells 2.49 10^6/uL (4.5-5.90); White Blood Cell 11.6 10^3/uL (4.4-10.8)
[2021-08-11 04:52] LABS: Potassium 3.6 mmol/L (3.5-5.1)
[2021-08-11 04:59] LABS: Albumin 2.6 g/dL (3.4-5.0); BUN/Creatinine Ratio 48.6; Bilirubin, Total 0.5 mg/dL (0.2-1.0); Calcium 9.2 mg/dL (8.5-10.1); Phosphorus 4.3 mg/dL (2.5-4.90); Pre Albumin 25.5 mg/dL (20.0-40.0); Total Protein 6.5 g/dL (6.4-8.2)
[2021-08-11] MEDS: BUMETANIDE 2.5mg/10ml (0.25 mg/ml) INJ IV SCH (05:52)
[2021-08-11] MEDS: ACCU-CHEK COMFORT CURVE STRIP VI SCH ×4 (05:53→17:59)
[2021-08-11] MEDS: InsuLIN REG 1unit/0.01ml Soln (100units/ml) SC SCH ×4 (05:53→18:00)
[2021-08-11] MEDS: amLODIPine BESYLATE 5 MG TAB GT SCH (09:37)
[2021-08-11] MEDS: METOPROLOL TARTRATE 25 MG TAB GT SCH ×2 (09:37→22:00)
[2021-08-11] MEDS: SODIUM CHLOR 0.9% PF (SALINE LOCK) 10ML VIAL/SYR IV SCH ×2 (09:37→22:00)
[2021-08-11] MEDS: PANTOPRAZOLE 40 MG/10 ML VIAL INJ IV SCH (09:37)
[2021-08-11] MEDS: INSULIN LANTUS (GLARGINE) 1 /0.01ml (100units/ml) SC SCH ×2 (09:46→22:00)
[2021-08-11] MEDS: BUDESONIDE (INHALATION) 0.5 MG/2 ML NEB NEB SCH ×2 (10:06→18:27)
[2021-08-11] MEDS ORDERED: METOCLOPRAMIDE HCL 5MG/ml INJ 2ml VIAL IV ONE (14:15)
[2021-08-11] MEDS ORDERED: cloNIDine 0.1 mg/24hr 7 DAY PATCH TD ONE (14:15)
[2021-08-11] MEDS: Glucerna 1.2 Cal 1Liter BOTTLE GT SCH (20:00)
[2021-08-11] MEDS ORDERED: TPN*HIGH CONC* PER PHARMACY IV NR ×9 (20:00)
[2021-08-11] MEDS: ARTIFICIAL TEAR OPTH(EYE) OINT 3.5GM EACHEYE SCH (22:00)
[2021-08-11] MEDS: METOCLOPRAMIDE HCL 5MG/ml INJ 2ml VIAL IV SCH (22:00)
[2021-08-12] VITALS (50 sets, daily range): BP systolic 127–188; BP diastolic 52–80
[2021-08-12] MEDS: InsuLIN REG 1unit/0.01ml Soln (100units/ml) SC SCH ×5 (00:16→23:38)
[2021-08-12] MEDS: ACCU-CHEK COMFORT CURVE STRIP VI SCH ×5 (00:17→23:36)
[2021-08-12] MEDS: ALBUTEROL SULF 2.5 MG/0.5ML(0.5%) NEB SOLN NEB SCH ×4 (00:21→18:18)
[2021-08-12] MEDS: IPRATROPIUM BROM 0.5 MG/2.5ML INH SOL NEB SCH ×4 (00:21→18:18)
[2021-08-12] MEDS: LABETALOL HCL 5 MG/ML 4ML SYRINGE IV PRN ×3 (02:33→23:23)
[2021-08-12 04:24] LABS: Basophils # (auto) 0.1 10 ^3/uL (0-0.2); Eosinophils # (auto) 0.3 10 ^3/uL (0-0.8); Eosinophils % (auto) 2.5 % (0.0-7.0); Mean Corpuscular Hemoglobin 31.7 pg (28.0-32.0); White Blood Cell 10.4 10^3/uL (4.4-10.8)
[2021-08-12 04:26] LABS: Basophils % (auto) 1.1 % (0.0-2.0); Hematocrit 22.1 % (41.0-53.0); Hemoglobin 7.4 g/dL (13.5-17.5); Lymphocytes # (auto) 0.6 10 ^3/uL (0.4-5.4); Lymphocytes % (auto) 5.9 % (10.0-50.0); Mean Corpuscular Hgb Conc. 33.6 g/dL (32.0-36.0); Mean Corpuscular Volume 94.2 fL (80.0-100.0); Monocytes # (auto) 1.3 10 ^3/uL (0-1.3); Monocytes % (auto) 12.5 % (0.0-12.0); Neutrophils # (auto) 8.1 10 ^3/uL (1.6-8.6); Red Blood Cells 2.34 10^6/uL (4.5-5.90)
[2021-08-12 04:39] LABS: Potassium 4.1 mmol/L (3.5-5.1)
[2021-08-12 04:45] LABS: Albumin 2.5 g/dL (3.4-5.0); BUN/Creatinine Ratio 48.1; Bilirubin, Total 0.4 mg/dL (0.2-1.0); Calcium 8.9 mg/dL (8.5-10.1); Magnesium 2.4 mg/dL (1.6-2.6); Phosphorus 4.3 mg/dL (2.5-4.90); Total Protein 6.6 g/dL (6.4-8.2)
[2021-08-12] MEDS: hydrALAZINE HCL 20 MG/ML VL IV PRN ×2 (04:46→23:35)
[2021-08-12] MEDS: METOCLOPRAMIDE HCL 5MG/ml INJ 2ml VIAL IV SCH ×3 (05:59→22:00)
[2021-08-12] MEDS: BUDESONIDE (INHALATION) 0.5 MG/2 ML NEB NEB SCH ×2 (07:31→18:18)
[2021-08-12] MEDS: PANTOPRAZOLE 40 MG/10 ML VIAL INJ IV SCH (10:24)
[2021-08-12] MEDS: amLODIPine BESYLATE 5 MG TAB GT SCH (10:24)
[2021-08-12] MEDS: METOPROLOL TARTRATE 25 MG TAB GT SCH ×2 (10:24→22:00)
[2021-08-12] MEDS: SODIUM CHLOR 0.9% PF (SALINE LOCK) 10ML VIAL/SYR IV SCH ×2 (10:24→22:00)
[2021-08-12] MEDS: INSULIN LANTUS (GLARGINE) 1 /0.01ml (100units/ml) SC SCH ×2 (10:28→22:00)
[2021-08-12] MEDS ORDERED: TPN*HIGH CONC* PER PHARMACY IV NR ×8 (20:00)
[2021-08-12] MEDS: Glucerna 1.2 Cal 1Liter BOTTLE GT SCH (20:00)
[2021-08-12] MEDS: ARTIFICIAL TEAR OPTH(EYE) OINT 3.5GM EACHEYE SCH (22:00)
[2021-08-13] VITALS (36 sets, daily range): BP systolic 131–178; BP diastolic 50–80
[2021-08-13] MEDS: IPRATROPIUM BROM 0.5 MG/2.5ML INH SOL NEB SCH ×4 (00:04→18:38)
[2021-08-13] MEDS: ALBUTEROL SULF 2.5 MG/0.5ML(0.5%) NEB SOLN NEB SCH ×4 (00:04→18:38)
[2021-08-13] MEDS: hydrALAZINE HCL 20 MG/ML VL IV PRN ×3 (03:29→23:46)
[2021-08-13 04:35] LABS: Basophils # (auto) 0.1 10 ^3/uL (0-0.2); Basophils % (auto) 0.4 % (0.0-2.0); Eosinophils # (auto) 0.2 10 ^3/uL (0-0.8); Eosinophils % (auto) 1.9 % (0.0-7.0); Hematocrit 23.1 % (41.0-53.0); Hemoglobin 7.7 g/dL (13.5-17.5); Lymphocytes # (auto) 0.6 10 ^3/uL (0.4-5.4); Lymphocytes % (auto) 4.7 % (10.0-50.0); Mean Corpuscular Hemoglobin 31.2 pg (28.0-32.0); Mean Corpuscular Hgb Conc. 33.1 g/dL (32.0-36.0); Mean Corpuscular Volume 94.4 fL (80.0-100.0); Monocytes # (auto) 1.4 10 ^3/uL (0-1.3); Monocytes % (auto) 11.4 % (0.0-12.0); Neutrophils # (auto) 9.8 10 ^3/uL (1.6-8.6); Neutrophils % (auto) 81.6 % (37.0-80.0); Red Blood Cells 2.45 10^6/uL (4.5-5.90); Red Cell Distribution Width 16.1 % (11.8-14.3); White Blood Cell 12.1 10^3/uL (4.4-10.8)
[2021-08-13 04:45] LABS: INR 1.21 (0.9-1.15); Partial Thromboplastin Time 24.7 sec (23.6-33.0)
[2021-08-13 04:53] LABS: Albumin 2.7 g/dL (3.4-5.0); Calcium 9.3 mg/dL (8.5-10.1); Magnesium 2.5 mg/dL (1.6-2.6); Potassium 4.1 mmol/L (3.5-5.1)
[2021-08-13 04:57] LABS: Bilirubin, Total 0.5 mg/dL (0.2-1.0); Phosphorus 4.2 mg/dL (2.5-4.90)
[2021-08-13] MEDS: METOCLOPRAMIDE HCL 5MG/ml INJ 2ml VIAL IV SCH ×3 (06:00→22:00)
[2021-08-13] MEDS: BUDESONIDE (INHALATION) 0.5 MG/2 ML NEB NEB SCH ×2 (07:14→18:38)
[2021-08-13] MEDS ORDERED: SODIUM CHL 0.9% 1000 ML BAG XX ONE (07:15)
[2021-08-13] MEDS: INSULIN LANTUS (GLARGINE) 1 /0.01ml (100units/ml) SC SCH ×2 (10:00→22:00)
[2021-08-13] MEDS ORDERED: CATHFLO ACTIVASE (ALTEPLASE) 2 MG VIAL IV ONE (10:00)
[2021-08-13] MEDS: PANTOPRAZOLE 40 MG/10 ML VIAL INJ IV SCH (10:12)
[2021-08-13] MEDS: METOPROLOL TARTRATE 25 MG TAB GT SCH ×2 (10:12→22:00)
[2021-08-13] MEDS: amLODIPine BESYLATE 5 MG TAB GT SCH (10:13)
[2021-08-13] MEDS: SODIUM CHLOR 0.9% PF (SALINE LOCK) 10ML VIAL/SYR IV SCH ×2 (10:30→22:00)
[2021-08-13] MEDS: ACCU-CHEK COMFORT CURVE STRIP VI SCH ×3 (12:00→23:47)
[2021-08-13] MEDS: InsuLIN REG 1unit/0.01ml Soln (100units/ml) SC SCH ×2 (12:00→23:49)
[2021-08-13] MEDS: FREE WATER GT SCH ×3 (14:00→22:00)
[2021-08-13] MEDS ORDERED: TPN PER PHARMACY 0 ML IV SCH (19:45)
[2021-08-13] MEDS ORDERED: TPN PER PHARMACY IV NR ×7 (20:00)
[2021-08-13] MEDS: ARTIFICIAL TEAR OPTH(EYE) OINT 3.5GM EACHEYE SCH ×2 (20:00→22:00)
[2021-08-13] MEDS ORDERED: DEXTROSE (50%) 50ML SYRG IV SCH (20:00)
[2021-08-13] MEDS ORDERED: AMINO ACID INFUSION IN D10W 1,000 ML IV NR (20:00)
[2021-08-14] VITALS (35 sets, daily range): BP systolic 139–172; BP diastolic 52–122
[2021-08-14] MEDS: IPRATROPIUM BROM 0.5 MG/2.5ML INH SOL NEB SCH ×4 (00:20→18:22)
[2021-08-14] MEDS: ALBUTEROL SULF 2.5 MG/0.5ML(0.5%) NEB SOLN NEB SCH ×4 (00:20→18:22)
[2021-08-14] MEDS: FREE WATER GT SCH ×6 (01:56→20:00)
[2021-08-14 04:37] LABS: Basophils # (auto) 0.1 10 ^3/uL (0-0.2); Lymphocytes # (auto) 0.7 10 ^3/uL (0.4-5.4); Lymphocytes % (auto) 6.8 % (10.0-50.0); Monocytes % (auto) 10.8 % (0.0-12.0)
[2021-08-14 04:41] LABS: Basophils % (auto) 0.7 % (0.0-2.0); Eosinophils # (auto) 0.2 10 ^3/uL (0-0.8); Eosinophils % (auto) 1.6 % (0.0-7.0); Hematocrit 21.6 % (41.0-53.0); Hemoglobin 7.3 g/dL (13.5-17.5); Mean Corpuscular Hemoglobin 31.7 pg (28.0-32.0); Mean Corpuscular Hgb Conc. 33.6 g/dL (32.0-36.0); Mean Corpuscular Volume 94.5 fL (80.0-100.0); Neutrophils # (auto) 7.7 10 ^3/uL (1.6-8.6); Neutrophils % (auto) 80.1 % (37.0-80.0); Red Blood Cells 2.29 10^6/uL (4.5-5.90); Red Cell Distribution Width 15.8 % (11.8-14.3); White Blood Cell 9.7 10^3/uL (4.4-10.8)
[2021-08-14 05:07] LABS: Potassium 4.2 mmol/L (3.5-5.1)
[2021-08-14 05:20] LABS: Albumin 2.6 g/dL (3.4-5.0); BUN/Creatinine Ratio 45.7; Bilirubin, Total 0.5 mg/dL (0.2-1.0); Calcium 8.7 mg/dL (8.5-10.1); Magnesium 2.4 mg/dL (1.6-2.6); Total Protein 6.8 g/dL (6.4-8.2)
[2021-08-14] MEDS: BUDESONIDE (INHALATION) 0.5 MG/2 ML NEB NEB SCH ×2 (06:08→18:22)
[2021-08-14] MEDS: ACCU-CHEK COMFORT CURVE STRIP VI SCH ×3 (06:09→18:00)
[2021-08-14] MEDS: METOCLOPRAMIDE HCL 5MG/ml INJ 2ml VIAL IV SCH ×3 (06:09→22:35)
[2021-08-14] MEDS: InsuLIN REG 1unit/0.01ml Soln (100units/ml) SC SCH ×3 (06:10→18:00)
[2021-08-14] MEDS ORDERED: LORazepam 2MG/ML-1ML VIAL IV ONE (09:30)
[2021-08-14] MEDS: PANTOPRAZOLE 40 MG/10 ML VIAL INJ IV SCH (09:57)
[2021-08-14] MEDS: METOPROLOL TARTRATE 25 MG TAB GT SCH ×2 (09:58→22:36)
[2021-08-14] MEDS: SODIUM CHLOR 0.9% PF (SALINE LOCK) 10ML VIAL/SYR IV SCH ×2 (09:59→22:36)
[2021-08-14] MEDS: INSULIN LANTUS (GLARGINE) 1 /0.01ml (100units/ml) SC SCH ×2 (10:26→22:00)
[2021-08-14] MEDS: hydrALAZINE HCL 20 MG/ML VL IV PRN (12:15)
[2021-08-14] MEDS: BUMETANIDE 2.5mg/10ml (0.25 mg/ml) INJ IV SCH (13:37)
[2021-08-14] MEDS ORDERED: TPN PER PHARMACY IV NR ×5 (20:00)
[2021-08-14] MEDS: Glucerna 1.2 Cal 1Liter BOTTLE GT SCH (20:50)
[2021-08-15] VITALS (10 sets, daily range): BP systolic 110–169; BP diastolic 48–83
[2021-08-15] MEDS: IPRATROPIUM BROM 0.5 MG/2.5ML INH SOL NEB SCH ×4 (01:20→19:22)
[2021-08-15] MEDS: ALBUTEROL SULF 2.5 MG/0.5ML(0.5%) NEB SOLN NEB SCH ×2 (01:20→06:15)
[2021-08-15] MEDS: ACCU-CHEK COMFORT CURVE STRIP VI SCH ×4 (01:21→18:33)
[2021-08-15] MEDS: InsuLIN REG 1unit/0.01ml Soln (100units/ml) SC SCH ×4 (01:30→18:00)
[2021-08-15] MEDS: FREE WATER GT SCH ×6 (01:33→22:21)
[2021-08-15] MEDS: LABETALOL HCL 5 MG/ML 4ML SYRINGE IV PRN (05:21)
[2021-08-15 05:33] LABS: Basophils # (auto) 0.1 10 ^3/uL (0-0.2); Eosinophils # (auto) 0.2 10 ^3/uL (0-0.8); Hematocrit 21.4 % (41.0-53.0); Hemoglobin 7.3 g/dL (13.5-17.5); Lymphocytes # (auto) 0.5 10 ^3/uL (0.4-5.4); Lymphocytes % (auto) 5.2 % (10.0-50.0); Mean Corpuscular Hemoglobin 32.6 pg (28.0-32.0); Mean Corpuscular Hgb Conc. 34.1 g/dL (32.0-36.0); Mean Corpuscular Volume 95.7 fL (80.0-100.0); Monocytes # (auto) 0.9 10 ^3/uL (0-1.3); Monocytes % (auto) 9.8 % (0.0-12.0); Neutrophils # (auto) 7.4 10 ^3/uL (1.6-8.6); Nucleated Red Blood Cells % 0.1 %; Red Blood Cells 2.24 10^6/uL (4.5-5.90); Red Cell Distribution Width 15.9 % (11.8-14.3)
[2021-08-15] MEDS: METOCLOPRAMIDE HCL 5MG/ml INJ 2ml VIAL IV SCH ×3 (05:35→22:20)
[2021-08-15] MEDS: BUDESONIDE (INHALATION) 0.5 MG/2 ML NEB NEB SCH (06:15)
[2021-08-15 09:19] LABS: Potassium 4.4 mmol/L (3.5-5.1)
[2021-08-15 09:25] LABS: BUN/Creatinine Ratio 40.8; Calcium 9.1 mg/dL (8.5-10.1)
[2021-08-15] MEDS ORDERED: LACTULOSE 20Gm/30ML SOLN PO SCH (10:00)
[2021-08-15] MEDS: METOPROLOL TARTRATE 25 MG TAB GT SCH ×2 (10:24→22:21)
[2021-08-15] MEDS: PANTOPRAZOLE 40 MG/10 ML VIAL INJ IV SCH (10:25)
[2021-08-15] MEDS: SODIUM CHLOR 0.9% PF (SALINE LOCK) 10ML VIAL/SYR IV SCH ×2 (10:26→22:22)
[2021-08-15] MEDS ORDERED: SOD CHL 0.45% 1,000 ML IV SCH (11:00)
[2021-08-15] MEDS: LEVALBUTEROL HCL 1.25 MG/3 ML NEB NEB SCH ×2 (11:39→19:22)
[2021-08-15] MEDS: INSULIN LANTUS (GLARGINE) 1 /0.01ml (100units/ml) SC SCH ×2 (11:55→22:00)
[2021-08-15] MEDS: BUMETANIDE 2.5mg/10ml (0.25 mg/ml) INJ IV SCH (15:47)
[2021-08-15] MEDS: SOD CHL 0.45% 1,000 ML IV SCH (15:48)
[2021-08-15] MEDS: ARTIFICIAL TEAR OPTH(EYE) OINT 3.5GM EACHEYE SCH (22:21)
[2021-08-16] MEDS: ACCU-CHEK COMFORT CURVE STRIP VI SCH ×5 (00:58→23:36)
[2021-08-16] MEDS: SOD CHL 0.45% 1,000 ML IV SCH ×2 (01:51→12:17)
[2021-08-16] MEDS: LEVALBUTEROL HCL 1.25 MG/3 ML NEB NEB SCH ×4 (02:07→20:11)
[2021-08-16] MEDS: IPRATROPIUM BROM 0.5 MG/2.5ML INH SOL NEB SCH ×4 (02:07→20:11)
[2021-08-16 05:00] VITALS: BP 157/72
[2021-08-16] MEDS: FREE WATER GT SCH ×2 (05:03→06:14)
[2021-08-16 05:34] LABS: Basophils # (auto) 0.1 10 ^3/uL (0-0.2); Basophils % (auto) 0.9 % (0.0-2.0); Eosinophils # (auto) 0.2 10 ^3/uL (0-0.8); Hemoglobin 7.3 g/dL (13.5-17.5); Monocytes # (auto) 0.6 10 ^3/uL (0-1.3)
[2021-08-16 05:36] LABS: Eosinophils % (auto) 3.1 % (0.0-7.0); Hematocrit 21.7 % (41.0-53.0); Lymphocytes # (auto) 0.6 10 ^3/uL (0.4-5.4); Lymphocytes % (auto) 9.1 % (10.0-50.0); Mean Corpuscular Hemoglobin 31.8 pg (28.0-32.0); Mean Corpuscular Hgb Conc. 33.7 g/dL (32.0-36.0); Mean Corpuscular Volume 94.4 fL (80.0-100.0); Monocytes % (auto) 9.1 % (0.0-12.0); Neutrophils # (auto) 5.3 10 ^3/uL (1.6-8.6); Neutrophils % (auto) 77.8 % (37.0-80.0); Red Cell Distribution Width 15.9 % (11.8-14.3); White Blood Cell 6.9 10^3/uL (4.4-10.8)
[2021-08-16 06:00] LABS: Potassium 3.8 mmol/L (3.5-5.1)
[2021-08-16] MEDS: InsuLIN REG 1unit/0.01ml Soln (100units/ml) SC SCH ×5 (06:00→23:55)
[2021-08-16 06:08] LABS: BUN/Creatinine Ratio 38.6; Calcium 8.8 mg/dL (8.5-10.1)
[2021-08-16] MEDS: METOCLOPRAMIDE HCL 5MG/ml INJ 2ml VIAL IV SCH (06:14)
[2021-08-16 08:34] VITALS: BP 151/70
[2021-08-16] MEDS: SODIUM CHLOR 0.9% PF (SALINE LOCK) 10ML VIAL/SYR IV SCH ×2 (11:23→22:20)
[2021-08-16] MEDS: PANTOPRAZOLE 40 MG/10 ML VIAL INJ IV SCH (11:23)
[2021-08-16] MEDS: BUMETANIDE 2.5mg/10ml (0.25 mg/ml) INJ IV SCH (11:47)
[2021-08-16] MEDS: METOPROLOL TARTRATE 25 MG TAB GT SCH ×2 (11:48→22:20)
[2021-08-16] MEDS: SODIUM FERR GLUC 62.5MG/5ML 125 MG in SODIUM CHL 0.9% 100 ML IV SCH (12:17)
[2021-08-16 13:00] VITALS: BP 155/73
[2021-08-16 16:46] VITALS: BP 137/53
[2021-08-16 17:59] VITALS: BP 137/53
[2021-08-16 22:00] VITALS: BP 156/59
[2021-08-16] MEDS: ARTIFICIAL TEAR OPTH(EYE) OINT 3.5GM EACHEYE SCH ×2 (22:20→22:30)
[2021-08-17] MEDS: IPRATROPIUM BROM 0.5 MG/2.5ML INH SOL NEB SCH ×4 (00:38→18:32)
[2021-08-17] MEDS: LEVALBUTEROL HCL 1.25 MG/3 ML NEB NEB SCH ×4 (00:39→18:32)
[2021-08-17] MEDS: SOD CHL 0.45% 1,000 ML IV SCH ×2 (01:08→08:58)
[2021-08-17 05:14] VITALS: BP 153/73
[2021-08-17] MEDS: ACCU-CHEK COMFORT CURVE STRIP VI SCH ×3 (06:37→17:26)
[2021-08-17] MEDS: InsuLIN REG 1unit/0.01ml Soln (100units/ml) SC SCH ×3 (06:46→17:29)
[2021-08-17 06:48] LABS: Basophils # (auto) 0 10 ^3/uL (0-0.2); Eosinophils # (auto) 0.3 10 ^3/uL (0-0.8); Lymphocytes # (auto) 0.6 10 ^3/uL (0.4-5.4)
[2021-08-17 06:51] LABS: Basophils % (auto) 0.7 % (0.0-2.0); Eosinophils % (auto) 5.2 % (0.0-7.0); Hematocrit 23.4 % (41.0-53.0); Hemoglobin 7.7 g/dL (13.5-17.5); Lymphocytes % (auto) 9.3 % (10.0-50.0); Mean Corpuscular Hgb Conc. 33.1 g/dL (32.0-36.0); Mean Corpuscular Volume 93.8 fL (80.0-100.0); Monocytes # (auto) 0.6 10 ^3/uL (0-1.3); Monocytes % (auto) 9.7 % (0.0-12.0); Neutrophils % (auto) 75.1 % (37.0-80.0); Red Blood Cells 2.49 10^6/uL (4.5-5.90); Red Cell Distribution Width 15.7 % (11.8-14.3); White Blood Cell 6.7 10^3/uL (4.4-10.8)
[2021-08-17] MEDS: BUMETANIDE 2.5mg/10ml (0.25 mg/ml) INJ IV SCH (08:39)
[2021-08-17] MEDS: PANTOPRAZOLE 40 MG/10 ML VIAL INJ IV SCH (08:39)
[2021-08-17] MEDS: METOPROLOL TARTRATE 25 MG TAB GT SCH ×2 (08:40→22:06)
[2021-08-17] MEDS: SODIUM CHLOR 0.9% PF (SALINE LOCK) 10ML VIAL/SYR IV SCH ×2 (08:44→22:06)
[2021-08-17 09:00] VITALS: BP 173/75
[2021-08-17 09:19] LABS: BUN/Creatinine Ratio 33.3; Calcium 8.9 mg/dL (8.5-10.1); Potassium 4.7 mmol/L (3.5-5.1)
[2021-08-17] MEDS: D5W 5% 1,000 ML IV SCH (11:05)
[2021-08-17] MEDS: SODIUM FERR GLUC 62.5MG/5ML 125 MG in SODIUM CHL 0.9% 100 ML IV SCH (11:42)
[2021-08-17 13:00] VITALS: BP 131/53
[2021-08-17 17:00] VITALS: BP 139/67
[2021-08-17 22:00] VITALS: BP 139/68
[2021-08-17] MEDS: ARTIFICIAL TEAR OPTH(EYE) OINT 3.5GM EACHEYE SCH (22:06)
[2021-08-18] MEDS: ACCU-CHEK COMFORT CURVE STRIP VI SCH ×5 (00:13→23:49)
[2021-08-18] MEDS: InsuLIN REG 1unit/0.01ml Soln (100units/ml) SC SCH ×5 (00:21→23:52)
[2021-08-18] MEDS: IPRATROPIUM BROM 0.5 MG/2.5ML INH SOL NEB SCH ×4 (00:42→18:56)
[2021-08-18] MEDS: LEVALBUTEROL HCL 1.25 MG/3 ML NEB NEB SCH ×4 (00:42→18:56)
[2021-08-18] MEDS: D5W 5% 1,000 ML IV SCH ×3 (02:43→17:57)
[2021-08-18 04:00] VITALS: BP 168/76
[2021-08-18 04:38] LABS: BUN/Creatinine Ratio 31.9; Calcium 8.8 mg/dL (8.5-10.1); Potassium 4.4 mmol/L (3.5-5.1)
[2021-08-18 09:00] VITALS: BP 179/62
[2021-08-18] MEDS: BUMETANIDE 2.5mg/10ml (0.25 mg/ml) INJ IV SCH (10:00)
[2021-08-18] MEDS ORDERED: cloNIDine 0.1 mg/24hr 7 DAY PATCH TD SCH (10:00)
[2021-08-18] MEDS: METOPROLOL TARTRATE 25 MG TAB GT SCH ×2 (10:24→22:22)
[2021-08-18] MEDS: PANTOPRAZOLE 40 MG/10 ML VIAL INJ IV SCH (10:24)
[2021-08-18] MEDS: SODIUM CHLOR 0.9% PF (SALINE LOCK) 10ML VIAL/SYR IV SCH ×2 (10:26→22:22)
[2021-08-18] MEDS: SODIUM FERR GLUC 62.5MG/5ML 125 MG in SODIUM CHL 0.9% 100 ML IV SCH (12:30)
[2021-08-18 12:53] VITALS: BP 162/90
[2021-08-18 16:58] VITALS: BP 141/69
[2021-08-18 20:00] VITALS: BP 150/67
[2021-08-18 22:00] VITALS: BP 158/66
[2021-08-18] MEDS: ARTIFICIAL TEAR OPTH(EYE) OINT 3.5GM EACHEYE SCH (22:21)
[2021-08-19] MEDS: LEVALBUTEROL HCL 1.25 MG/3 ML NEB NEB SCH ×5 (00:14→23:49)
[2021-08-19] MEDS: IPRATROPIUM BROM 0.5 MG/2.5ML INH SOL NEB SCH ×5 (00:14→23:49)
[2021-08-19] MEDS: D5W 5% 1,000 ML IV SCH ×2 (00:35→05:18)
[2021-08-19] MEDS: MORPHINE SULFATE INJECTION 2 MG/ML SYRG IV PRN ×2 (02:56→17:25)
[2021-08-19] MEDS: ONDANSETRON HCL 4 MG/2 ML VIAL IV PRN (03:07)
[2021-08-19 06:00] VITALS: BP 154/72
[2021-08-19] MEDS: ACCU-CHEK COMFORT CURVE STRIP VI SCH ×4 (06:00→23:50)
[2021-08-19] MEDS: InsuLIN REG 1unit/0.01ml Soln (100units/ml) SC SCH ×4 (06:03→23:51)
[2021-08-19 09:00] VITALS: BP 136/30
[2021-08-19] MEDS: BUMETANIDE 2.5mg/10ml (0.25 mg/ml) INJ IV SCH ×2 (10:00→17:26)
[2021-08-19] MEDS: SODIUM CHLOR 0.9% PF (SALINE LOCK) 10ML VIAL/SYR IV SCH ×2 (10:11→21:41)
[2021-08-19] MEDS: PANTOPRAZOLE 40 MG/10 ML VIAL INJ IV SCH (10:14)
[2021-08-19] MEDS: METOPROLOL TARTRATE 25 MG TAB GT SCH ×2 (10:14→21:41)
[2021-08-19] MEDS: SODIUM FERR GLUC 62.5MG/5ML 125 MG in SODIUM CHL 0.9% 100 ML IV SCH (12:28)
[2021-08-19 13:00] VITALS: BP 165/83
[2021-08-19 13:28] LABS: Basophils # (auto) 0.1 10 ^3/uL (0-0.2); Eosinophils # (auto) 0.5 10 ^3/uL (0-0.8); Hemoglobin 7.9 g/dL (13.5-17.5); Lymphocytes # (auto) 0.7 10 ^3/uL (0.4-5.4); Mean Corpuscular Hemoglobin 30.1 pg (28.0-32.0); Mean Corpuscular Hgb Conc. 32.8 g/dL (32.0-36.0); Monocytes # (auto) 0.6 10 ^3/uL (0-1.3); Red Cell Distribution Width 14.9 % (11.8-14.3)
[2021-08-19 13:30] LABS: Basophils % (auto) 1.1 % (0.0-2.0); Eosinophils % (auto) 7.7 % (0.0-7.0); Lymphocytes % (auto) 9.8 % (10.0-50.0); Mean Corpuscular Volume 91.8 fL (80.0-100.0); Monocytes % (auto) 8.9 % (0.0-12.0); Neutrophils # (auto) 5.1 10 ^3/uL (1.6-8.6); Neutrophils % (auto) 72.5 % (37.0-80.0); Red Blood Cells 2.61 10^6/uL (4.5-5.90)
[2021-08-19 13:38] LABS: Albumin 2.6 g/dL (3.4-5.0); Calcium 8.6 mg/dL (8.5-10.1); Potassium 4.5 mmol/L (3.5-5.1)
[2021-08-19 13:41] LABS: BUN/Creatinine Ratio 27.1; Bilirubin, Total 0.5 mg/dL (0.2-1.0); Total Protein 7.2 g/dL (6.4-8.2)
[2021-08-19] MEDS: hydrALAZINE HCL 20 MG/ML VL IV PRN (13:56)
[2021-08-19 16:52] VITALS: BP 146/63
[2021-08-19 20:00] VITALS: BP 160/70
[2021-08-19] MEDS: ARTIFICIAL TEAR OPTH(EYE) OINT 3.5GM EACHEYE SCH (21:41)
[2021-08-19 22:14] VITALS: BP 162/70
[2021-08-20 00:56] VITALS: BP 162/70
[2021-08-20 05:05] VITALS: BP 158/80
[2021-08-20] MEDS: ACCU-CHEK COMFORT CURVE STRIP VI SCH ×3 (05:42→17:52)
[2021-08-20] MEDS: InsuLIN REG 1unit/0.01ml Soln (100units/ml) SC SCH ×3 (05:42→17:56)
[2021-08-20 06:19] LABS: Potassium 4.5 mmol/L (3.5-5.1)
[2021-08-20 06:21] LABS: BUN/Creatinine Ratio 26.1; Calcium 8.7 mg/dL (8.5-10.1)
[2021-08-20] MEDS: IPRATROPIUM BROM 0.5 MG/2.5ML INH SOL NEB SCH ×3 (06:35→18:46)
[2021-08-20] MEDS: LEVALBUTEROL HCL 1.25 MG/3 ML NEB NEB SCH ×3 (06:36→18:46)
[2021-08-20 08:00] VITALS: BP 165/75
[2021-08-20] MEDS: NIFEdipine ER 30 MG TAB PO SCH (10:20)
[2021-08-20] MEDS: SODIUM CHLOR 0.9% PF (SALINE LOCK) 10ML VIAL/SYR IV SCH ×2 (10:21→21:57)
[2021-08-20] MEDS: METOPROLOL TARTRATE 25 MG TAB PO SCH ×2 (10:21→21:56)
[2021-08-20] MEDS: BUMETANIDE 2.5mg/10ml (0.25 mg/ml) INJ IV SCH (10:22)
[2021-08-20] MEDS: SODIUM FERR GLUC 62.5MG/5ML 125 MG in SODIUM CHL 0.9% 100 ML IV SCH (12:13)
[2021-08-20 13:00] VITALS: BP 169/77
[2021-08-20] MEDS: hydrALAZINE HCL 20 MG/ML VL IV PRN (13:31)
[2021-08-20 17:00] VITALS: BP 136/55
[2021-08-20] MEDS: ARTIFICIAL TEAR OPTH(EYE) OINT 3.5GM EACHEYE SCH (21:57)
[2021-08-21] MEDS: LEVALBUTEROL HCL 1.25 MG/3 ML NEB NEB SCH ×2 (00:13→06:50)
[2021-08-21] MEDS: IPRATROPIUM BROM 0.5 MG/2.5ML INH SOL NEB SCH ×2 (00:13→06:50)
[2021-08-21 05:00] VITALS: BP 142/58
[2021-08-21 05:54] LABS: Potassium 4.3 mmol/L (3.5-5.1)
[2021-08-21 05:59] LABS: BUN/Creatinine Ratio 23.1; Calcium 8.5 mg/dL (8.5-10.1)
[2021-08-21] MEDS: ACCU-CHEK COMFORT CURVE STRIP VI SCH ×3 (06:00→12:23)
[2021-08-21] MEDS: InsuLIN REG 1unit/0.01ml Soln (100units/ml) SC SCH ×3 (06:00→12:29)
[2021-08-21 09:00] VITALS: BP 146/62
[2021-08-21] MEDS: BUMETANIDE 2.5mg/10ml (0.25 mg/ml) INJ IV SCH (10:26)
[2021-08-21] MEDS: METOPROLOL TARTRATE 25 MG TAB PO SCH ×2 (10:27→22:33)
[2021-08-21] MEDS: SODIUM CHLOR 0.9% PF (SALINE LOCK) 10ML VIAL/SYR IV SCH ×2 (10:28→22:34)
[2021-08-21] MEDS: NIFEdipine ER 30 MG TAB PO SCH (10:28)
[2021-08-21] MEDS: Glucerna Carbsteady SHAKE Stawberry 8oz PO SCH ×2 (12:29→17:52)
[2021-08-21] MEDS: hydrALAZINE HCL 20 MG/ML VL IV PRN (12:32)
[2021-08-21 14:04] VITALS: BP 167/77
[2021-08-21] MEDS ORDERED: ALBUTEROL SULF 2.5 MG/0.5ML(0.5%) NEB SOLN NEB PRN (16:15)
[2021-08-21] MEDS ORDERED: IPRATROPIUM BROM 0.5 MG/2.5ML INH SOL NEB PRN (16:15)
[2021-08-21] MEDS ORDERED: NIFEdipine ER 30 MG TAB PO ONE (16:15)
[2021-08-21 17:00] VITALS: BP 124/58
[2021-08-21] MEDS: FERROUS SULFATE 325mg EC TAB PO SCH (17:51)
[2021-08-21] MEDS: ONDANSETRON HCL 4 MG/2 ML VIAL IV PRN (20:11)
[2021-08-21 22:00] VITALS: BP 142/65
[2021-08-21] MEDS: ARTIFICIAL TEAR OPTH(EYE) OINT 3.5GM EACHEYE SCH (22:32)
[2021-08-22 04:45] VITALS: BP 147/72
[2021-08-22 05:48] LABS: Hematocrit 24.4 % (41.0-53.0); Hemoglobin 8.3 g/dL (13.5-17.5)
[2021-08-22 06:17] LABS: Calcium 8.6 mg/dL (8.5-10.1); Potassium 4.5 mmol/L (3.5-5.1)
[2021-08-22 06:19] LABS: BUN/Creatinine Ratio 20.8
[2021-08-22] MEDS: ONDANSETRON HCL 4 MG/2 ML VIAL IV PRN (06:24)
[2021-08-22] MEDS: Glucerna Carbsteady SHAKE Stawberry 8oz PO SCH ×3 (08:00→18:00)
[2021-08-22 09:00] VITALS: BP 147/69
[2021-08-22] MEDS: FERROUS SULFATE 325mg EC TAB PO SCH ×2 (09:05→18:00)
[2021-08-22] MEDS: SODIUM CHLOR 0.9% PF (SALINE LOCK) 10ML VIAL/SYR IV SCH ×2 (09:06→21:19)
[2021-08-22] MEDS: BUMETANIDE 1 MG TAB PO SCH (09:07)
[2021-08-22] MEDS: METOPROLOL TARTRATE 25 MG TAB PO SCH ×2 (09:07→21:19)
[2021-08-22] MEDS: NIFEdipine ER 30 MG TAB PO SCH (09:08)
[2021-08-22 13:00] VITALS: BP 129/61
[2021-08-22 17:00] VITALS: BP 132/55
[2021-08-22] MEDS: ARTIFICIAL TEAR OPTH(EYE) OINT 3.5GM EACHEYE SCH (21:20)
[2021-08-22 22:00] VITALS: BP 133/63
[2021-08-23] VITALS (7 sets, daily range): BP systolic 111–147; BP diastolic 58–72
[2021-08-23] MEDS: Glucerna Carbsteady SHAKE Stawberry 8oz PO SCH ×3 (08:00→18:00)
[2021-08-23] MEDS: FERROUS SULFATE 325mg EC TAB PO SCH ×2 (09:21→18:00)
[2021-08-23] MEDS: METOPROLOL TARTRATE 25 MG TAB PO SCH ×2 (09:22→22:24)
[2021-08-23] MEDS: BUMETANIDE 1 MG TAB PO SCH (09:23)
[2021-08-23] MEDS: NIFEdipine ER 30 MG TAB PO SCH (09:24)
[2021-08-23] MEDS: SODIUM CHLOR 0.9% PF (SALINE LOCK) 10ML VIAL/SYR IV SCH ×2 (09:24→22:24)
[2021-08-23] MEDS: ARTIFICIAL TEAR OPTH(EYE) OINT 3.5GM EACHEYE SCH (22:24)
[2021-08-24 05:00] VITALS: BP 149/71
[2021-08-24 09:00] VITALS: BP 139/69
[2021-08-24] MEDS: FERROUS SULFATE 325mg EC TAB PO SCH ×2 (09:51→17:30)
[2021-08-24] MEDS: NIFEdipine ER 30 MG TAB PO SCH (09:52)
[2021-08-24] MEDS: BUMETANIDE 1 MG TAB PO SCH (09:53)
[2021-08-24] MEDS: METOPROLOL TARTRATE 25 MG TAB PO SCH ×2 (09:54→22:00)
[2021-08-24] MEDS: SODIUM CHLOR 0.9% PF (SALINE LOCK) 10ML VIAL/SYR IV SCH ×2 (09:54→22:36)
[2021-08-24] MEDS: Glucerna Carbsteady SHAKE Stawberry 8oz PO SCH ×3 (09:54→17:30)
[2021-08-24 13:00] VITALS: BP 151/77
[2021-08-24 16:59] VITALS: BP 163/91
[2021-08-24 20:00] VITALS: BP 130/67
[2021-08-24 22:00] VITALS: BP 130/67
[2021-08-24] MEDS: ARTIFICIAL TEAR OPTH(EYE) OINT 3.5GM EACHEYE SCH (22:36)
[2021-08-25 05:00] VITALS: BP 119/70
[2021-08-25] MEDS: Glucerna Carbsteady SHAKE Stawberry 8oz PO SCH ×3 (08:00→18:58)
[2021-08-25 09:00] VITALS: BP 154/61
[2021-08-25] MEDS: FERROUS SULFATE 325mg EC TAB PO SCH ×2 (11:36→18:59)
[2021-08-25] MEDS: BUMETANIDE 1 MG TAB PO SCH (11:37)
[2021-08-25] MEDS: SODIUM CHLOR 0.9% PF (SALINE LOCK) 10ML VIAL/SYR IV SCH (11:37)
[2021-08-25] MEDS: METOPROLOL TARTRATE 25 MG TAB PO SCH (11:38)
[2021-08-25] MEDS: NIFEdipine ER 30 MG TAB PO SCH (11:39)
[2021-08-25 13:00] VITALS: BP 149/48
[2021-08-25 16:29] VITALS: BP 149/48
[2021-08-25 17:00] VITALS: BP 145/56
== END 2021-08-25 19:34 | DRG 329 ==
LOC: ER 14:50 → EDBD 14:50 → TELE 07-19 09:56 → ICU WEST 07-20 02:02 → WEST WING 08-14 21:59 → TELE-WESTW 08-14 22:00
PROVIDERS: ADMIT Internal Medicine; ATTEND Internal Medicine
PROC: 30233N1 Transfusion of Nonautologous Red Blood Cells into Peripheral Vein, Percutaneous Approach (ICD-10-PCS; 2021-07-19)
PROC: 5A1D70Z Performance of Urinary Filtration, Intermittent, Less than 6 Hours Per Day (ICD-10-PCS; 2021-07-19)
PROC: 06HN33Z Insertion of Infusion Device into Left Femoral Vein, Percutaneous Approach (ICD-10-PCS; 2021-07-19)
PROC: 0DJD8ZZ Inspection of Lower Intestinal Tract, Via Natural or Artificial Opening Endoscopic (ICD-10-PCS; 2021-07-20)
PROC: 0DJ08ZZ Inspection of Upper Intestinal Tract, Via Natural or Artificial Opening Endoscopic (ICD-10-PCS; 2021-07-20)
PROC: 30233K1 Transfusion of Nonautologous Frozen Plasma into Peripheral Vein, Percutaneous Approach (ICD-10-PCS; 2021-07-20)
PROC: 30233R1 Transfusion of Nonautologous Platelets into Peripheral Vein, Percutaneous Approach (ICD-10-PCS; 2021-07-20)
PROC: 06HM33Z Insertion of Infusion Device into Right Femoral Vein, Percutaneous Approach (ICD-10-PCS; 2021-07-20)
PROC: B410YZZ Fluoroscopy of Abdominal Aorta using Other Contrast (ICD-10-PCS; 2021-07-20)
PROC: B415YZZ Fluoroscopy of Inferior Mesenteric Artery using Other Contrast (ICD-10-PCS; 2021-07-20)
PROC: B414YZZ Fluoroscopy of Superior Mesenteric Artery using Other Contrast (ICD-10-PCS; 2021-07-20)
PROC: 0D1B0Z4 Bypass Ileum to Cutaneous, Open Approach (ICD-10-PCS; 2021-07-21)
PROC: 5A1955Z Respiratory Ventilation, Greater than 96 Consecutive Hours (ICD-10-PCS; 2021-07-21)
PROC: 0BH17EZ Insertion of Endotracheal Airway into Trachea, Via Natural or Artificial Opening (ICD-10-PCS; 2021-07-21)
PROC: 0DBE0ZZ Excision of Large Intestine, Open Approach (ICD-10-PCS; principal; 2021-07-21 02:27)
PROC: 02HV33Z Insertion of Infusion Device into Superior Vena Cava, Percutaneous Approach (ICD-10-PCS; 2021-07-29)
PROC: 05HM33Z Insertion of Infusion Device into Right Internal Jugular Vein, Percutaneous Approach (ICD-10-PCS; 2021-08-01)
PROC: 5A1D70Z Performance of Urinary Filtration, Intermittent, Less than 6 Hours Per Day (ICD-10-PCS; 2021-08-02)
PROC: 5A1D70Z Performance of Urinary Filtration, Intermittent, Less than 6 Hours Per Day (ICD-10-PCS; 2021-08-04)
PROC: 5A1D70Z Performance of Urinary Filtration, Intermittent, Less than 6 Hours Per Day (ICD-10-PCS; 2021-08-05)
PROC: 5A09457 Assistance with Respiratory Ventilation, 24-96 Consecutive Hours, Continuous Positive Airway Pressure (ICD-10-PCS; 2021-08-08)
PROC: 5A09357 Assistance with Respiratory Ventilation, Less than 24 Consecutive Hours, Continuous Positive Airway Pressure (ICD-10-PCS; 2021-08-10)
PROC: 5A09357 Assistance with Respiratory Ventilation, Less than 24 Consecutive Hours, Continuous Positive Airway Pressure (ICD-10-PCS; 2021-08-11)
PROC: 5A09357 Assistance with Respiratory Ventilation, Less than 24 Consecutive Hours, Continuous Positive Airway Pressure (ICD-10-PCS; 2021-08-12)
PROC: 05HM33Z Insertion of Infusion Device into Right Internal Jugular Vein, Percutaneous Approach (ICD-10-PCS; 2021-08-13)
PROC: 5A1D70Z Performance of Urinary Filtration, Intermittent, Less than 6 Hours Per Day (ICD-10-PCS; 2021-08-13)
PROC: 5A09357 Assistance with Respiratory Ventilation, Less than 24 Consecutive Hours, Continuous Positive Airway Pressure (ICD-10-PCS; 2021-08-13)
PROC: 5A09357 Assistance with Respiratory Ventilation, Less than 24 Consecutive Hours, Continuous Positive Airway Pressure (ICD-10-PCS; 2021-08-14)
PROC: 5A09357 Assistance with Respiratory Ventilation, Less than 24 Consecutive Hours, Continuous Positive Airway Pressure (ICD-10-PCS; 2021-08-15)
PROC: 5A09357 Assistance with Respiratory Ventilation, Less than 24 Consecutive Hours, Continuous Positive Airway Pressure (ICD-10-PCS; 2021-08-16)
PROC: 5A09357 Assistance with Respiratory Ventilation, Less than 24 Consecutive Hours, Continuous Positive Airway Pressure (ICD-10-PCS; 2021-08-17)
PROC: 5A09357 Assistance with Respiratory Ventilation, Less than 24 Consecutive Hours, Continuous Positive Airway Pressure (ICD-10-PCS; 2021-08-18)
PROC: 5A09357 Assistance with Respiratory Ventilation, Less than 24 Consecutive Hours, Continuous Positive Airway Pressure (ICD-10-PCS; 2021-08-19)
PROC: 5A09357 Assistance with Respiratory Ventilation, Less than 24 Consecutive Hours, Continuous Positive Airway Pressure (ICD-10-PCS; 2021-08-20)
PROC: 5A09357 Assistance with Respiratory Ventilation, Less than 24 Consecutive Hours, Continuous Positive Airway Pressure (ICD-10-PCS; 2021-08-21)
DX: K57.31 Diverticulosis of large intestine without perforation or abscess with bleeding (principal); R57.8 Other shock; E43 Unspecified severe protein-calorie malnutrition; I21.A1 Myocardial infarction type 2; N17.0 Acute kidney failure with tubular necrosis; J96.21 Acute and chronic respiratory failure with hypoxia; G93.41 Metabolic encephalopathy; N18.4 Chronic kidney disease, stage 4 (severe); J90 Pleural effusion, not elsewhere classified; Z68.42 Body mass index [BMI] 45.0-49.9, adult; E87.0 Hyperosmolality and hypernatremia; D62 Acute posthemorrhagic anemia; J44.1 Chronic obstructive pulmonary disease with (acute) exacerbation; D69.6 Thrombocytopenia, unspecified; E11.21 Type 2 diabetes mellitus with diabetic nephropathy; E11.65 Type 2 diabetes mellitus with hyperglycemia; E87.5 Hyperkalemia; E66.01 Morbid (severe) obesity due to excess calories; E87.70 Fluid overload, unspecified; Z66 Do not resuscitate; D72.829 Elevated white blood cell count, unspecified; K57.90 Diverticulosis of intestine, part unspecified, without perforation or abscess without bleeding; D17.71 Benign lipomatous neoplasm of kidney; K58.9 Irritable bowel syndrome, unspecified; E11.22 Type 2 diabetes mellitus with diabetic chronic kidney disease; E78.5 Hyperlipidemia, unspecified; F17.210 Nicotine dependence, cigarettes, uncomplicated; I95.9 Hypotension, unspecified; I12.9 Hypertensive chronic kidney disease with stage 1 through stage 4 chronic kidney disease, or unspecified chronic kidney disease; N40.0 Benign prostatic hyperplasia without lower urinary tract symptoms; E83.39 Other disorders of phosphorus metabolism; G47.30 Sleep apnea, unspecified; Z51.5 Encounter for palliative care; Z75.1 Person awaiting admission to adequate facility elsewhere; Z91.15 Patient's noncompliance with renal dialysis; Z99.2 Dependence on renal dialysis; Z80.3 Family history of malignant neoplasm of breast; Z83.3 Family history of diabetes mellitus; Z86.73 Personal history of transient ischemic attack (TIA), and cerebral infarction without residual deficits; Z88.1 Allergy status to other antibiotic agents; Z88.5 Allergy status to narcotic agent; J38.00 Paralysis of vocal cords and larynx, unspecified
CPT/HCPCS: 36415; 36569; 36600; 43235; 45378; 70450; 70490; 70551; 71045; 71250; 74176; 75625; 75726; 76604; 76775; 76937; 80048; 80053; 80074; 81001; 82040; 82570; 82805; 82962; 83036; 83540; 83550; 83735; 83880; 84100; 84132; 84156; 84300; 84478; 84484; 85007; 85014; 85018; 85025; 85027; 85610; 85730; 86850; 86900; 86901; 86920; 87040; 87070; 87081; 87205; 87426; 90935; 92610; 93005; 94002; 94003; 94640; 94644; 94660; 94667; 94668; 96361; 96365; 96367; 96375; 97110; 97163; 97530; 99152; 99153; A4618; C9113; G0378; J0690; J0696; J1815; J2001; J2185; J2250; J2405; J2704; J3480; J3490; J7060; J7131; P9047; Q9967

== ENCOUNTER 2022-06-13 16:44 | Emergency (ER) | payer OTHER, MEDICAID ==
[~2022-06-13] VITALS: Ht 182.9 cm; Wt 121.0 kg
[~2022-06-13 16:44] MED LIST: ASPI-717 PO; ATOR-47 PO; CHL4PW GT; CHOL20007 PO; DULO20CA PO; FERR-20 PO; FINA5TAB4 PO; FLUT250M2 INH; FURO40TA4 PO; GABA300C10 PO; INSLANTI SC; LEVO-28 PO; LOPE2CAP PO; MAGN400T40 PO; METO-158 PO; NIFE90TA49 PO; PANT40TA2 PO
[2022-06-13 19:08] LABS: Basophils # (auto) 0 10 ^3/uL (0-0.2); Basophils % (auto) 0.5 % (0.0-2.0); Eosinophils # (auto) 0 10 ^3/uL (0-0.8); Eosinophils % (auto) 0.2 % (0.0-7.0); Lymphocytes # (auto) 0.2 10 ^3/uL (0.4-5.4); Lymphocytes % (auto) 2.6 % (10.0-50.0); Mean Corpuscular Hemoglobin 29.5 pg (28.0-32.0); Mean Corpuscular Hgb Conc. 32.3 g/dL (32.0-36.0); Mean Corpuscular Volume 91.5 fL (80.0-100.0); Monocytes % (auto) 11.4 % (0.0-12.0); Neutrophils # (auto) 7.6 10 ^3/uL (1.6-8.6); Neutrophils % (auto) 85.3 % (37.0-80.0); Red Blood Cells 3.06 10^6/uL (4.5-5.90); Red Cell Distribution Width 16.5 % (11.8-14.3); White Blood Cell 8.9 10^3/uL (4.4-10.8)
[2022-06-13 19:17] LABS: Albumin 3.4 g/dL (3.4-5.0); BUN/Creatinine Ratio 4.4; Calcium 9.1 mg/dL (8.5-10.1); Magnesium 1.9 mg/dL (1.6-2.6); Potassium 3.8 mmol/L (3.5-5.1)
[2022-06-13 19:20] LABS: Total Protein 8.2 g/dL (6.4-8.2)
[2022-06-13] MEDS ORDERED: SODIUM CHLORIDE 0.9% 250 ML IV ONE (20:30)
[2022-06-13] MEDS ORDERED: ONDANSETRON HCL 4 MG/2 ML VIAL IV ONE (20:30)
[2022-06-13] MEDS ORDERED: METOCLOPRAMIDE HCL 5MG/ml INJ 2ml VIAL IV ONE (21:30)
[2022-06-13] MEDS ORDERED: ONDA-144 PO (23:56)
[2022-06-14 00:58] VITALS: BP 100/53
== END 2022-06-14 00:58 | disposition home or self-care (01) ==
LOC: EDBD 16:44 → ER 16:44
DX: R11.2 Nausea with vomiting, unspecified (principal); J44.9 Chronic obstructive pulmonary disease, unspecified; E11.22 Type 2 diabetes mellitus with diabetic chronic kidney disease; I12.0 Hypertensive chronic kidney disease with stage 5 chronic kidney disease or end stage renal disease; N18.6 End stage renal disease; Z86.73 Personal history of transient ischemic attack (TIA), and cerebral infarction without residual deficits; Z87.442 Personal history of urinary calculi; Z88.1 Allergy status to other antibiotic agents; Z88.6 Allergy status to analgesic agent
CPT/HCPCS: 36415; 71045; 80053; 83735; 83880; 84484; 85025; 93005; 96374; 96375; 99285; J2405; J2765; J7050

== ENCOUNTER 2023-07-16 09:53 | Inpatient (IN) | payer OTHER, MEDICAID ==
[~2023-07-16] VITALS: Ht 182.9 cm; Wt 98.2 kg
[~2023-07-16 09:53] MED LIST changes: -FERR-20 PO; +FERR325T24 PO; +GABA-1250 PO; -GABA300C10 PO; -LEVO-28 PO; +LEVO500T91 PO; -NIFE90TA49 PO; +NIFE90TA75 PO; +ONDA-144 PO
[2023-07-16 11:22] VITALS: PULSE 118; RESP 19; O2SAT 95
[2023-07-16 11:34] LABS: Basophils # (auto) 0 10 ^3/uL (0-0.2); Eosinophils # (auto) 0 10 ^3/uL (0-0.8); Monocytes # (auto) 1.1 10 ^3/uL (0-1.3); Monocytes % (auto) 7.9 % (0.0-12.0); Red Cell Distribution Width 19.5 % (11.8-14.3)
[2023-07-16 11:38] LABS: Basophils % (auto) 0.3 % (0.0-2.0); Lymphocytes # (auto) 0.3 10 ^3/uL (0.4-5.4); Lymphocytes % (auto) 1.9 % (10.0-50.0); Mean Corpuscular Hemoglobin 33.1 pg (28.0-32.0); Mean Corpuscular Hgb Conc. 30.4 g/dL (32.0-36.0); Neutrophils # (auto) 12.4 10 ^3/uL (1.6-8.6); Neutrophils % (auto) 89.9 % (37.0-80.0); Nucleated Red Blood Cells % 0.1 %; Red Blood Cells 2.11 10^6/uL (4.5-5.90); White Blood Cell 13.7 10^3/uL (4.4-10.8)
[2023-07-16 12:17] LABS: Albumin 3.6 g/dL (3.2-4.8); Alkaline Phosphatase 107 U/L (46-116); Aspartate Aminotransferase 9 U/L (13-40); BUN/Creatinine Ratio 6.3 (10.0-20.0); Bilirubin, Total 1.1 mg/dL (0.2-1.0); Blood Urea Nitrogen 47 mg/dL (9-23); Calcium 8.8 mg/dL (8.5-10.1); Chloride 102 mmol/L (98-107); Glucose 234 mg/dL (74-106); Potassium 4.3 mmol/L (3.5-5.1); Sodium 134 mmol/L (136-145)
[2023-07-16] MEDS ORDERED: PIPERACILLIN-TAZOB 3.375GM 100 ML IV ONE (12:30)
[2023-07-16 12:40] LABS: Total Protein 7.1 g/dL (5.7-8.2)
[2023-07-16 12:42] LABS: Alanine Aminotransferase 19 U/L (7-40)
[2023-07-16] MEDS ORDERED: SODIUM CHLORIDE 0.9% 500 ML IV ONE (14:00)
[2023-07-16] MEDS ORDERED: NITROGLYCERIN 0.4 MG SL TAB SL PRN (16:15)
[2023-07-16] MEDS ORDERED: ACETAMINOPHEN 325 MG TAB PO PRN (16:15)
[2023-07-16] MEDS ORDERED: MORPHINE SULFATE INJ 2 MG/ml SYRG IV PRN (16:15)
[2023-07-16] MEDS ORDERED: DEXTROSE (50%) 50ML SYRG IV PRN (16:15)
[2023-07-16] MEDS ORDERED: SEVE800T10 PO (16:20)
[2023-07-16] MEDS ORDERED: PANT40T PO (16:20)
[2023-07-16] MEDS ORDERED: BUSP10TA31 PO (16:20)
[2023-07-16] MEDS ORDERED: MIDO5TAB4 PO (16:20)
[2023-07-16] MEDS ORDERED: DULO1CAP4 PO (16:20)
[2023-07-16] MEDS: InsuLIN REG 1unit/0.01ml Soln (100units/ml) SC SCH ×2 (17:26→23:06)
[2023-07-16] MEDS: ACCU-CHEK COMFORT CURVE STRIP VI SCH ×2 (17:29→22:56)
[2023-07-16] MEDS: IPRATROPIUM BROM 0.5 MG/2.5ML INH SOL NEB SCH (18:00)
[2023-07-16] MEDS: ALBUTEROL SULF 2.5 MG/0.5ML(0.5%) NEB SOLN NEB SCH (18:00)
[2023-07-16 19:30] VITALS: PULSE 98; RESP 20; O2SAT 95
[2023-07-16 21:38] LABS: COVID19 ANTIGEN SOFIA FIA NEGATIVE (NEGATIVE)
[2023-07-16] MEDS: busPIRone HCL 10 MG TAB PO SCH (23:06)
[2023-07-16] MEDS: PANTOPRAZOLE 40 MG TAB PO SCH (23:06)
[2023-07-16] MEDS: MIDODRINE HCL 10 MG TAB PO SCH (23:07)
[2023-07-16 23:09] VITALS: BP 107/69; PULSE 94; O2SAT 94
[2023-07-16 23:56] VITALS: BP 94/42; PULSE 98; RESP 20; TEMP 98.6; O2SAT 95
[2023-07-17] VITALS (10 sets, daily range): BP systolic 96–130; BP diastolic 59–77; PULSE 88–112; RESP 16–20; TEMP 98–98.8; O2SAT 79–99
[2023-07-17] MEDS: ACCU-CHEK COMFORT CURVE STRIP VI SCH ×4 (06:44→22:00)
[2023-07-17] MEDS: InsuLIN REG 1unit/0.01ml Soln (100units/ml) SC SCH ×4 (06:51→22:00)
[2023-07-17 07:22] LABS: Basophils # (auto) 0.1 10 ^3/uL (0-0.2); Basophils % (auto) 0.5 % (0.0-2.0); Eosinophils # (auto) 0 10 ^3/uL (0-0.8); Hematocrit 24.8 % (41.0-53.0); Hemoglobin 7.6 g/dL (13.5-17.5); Lymphocytes # (auto) 0.3 10 ^3/uL (0.4-5.4); Lymphocytes % (auto) 1.9 % (10.0-50.0); Mean Corpuscular Hemoglobin 33.5 pg (28.0-32.0); Mean Corpuscular Hgb Conc. 30.4 g/dL (32.0-36.0); Mean Corpuscular Volume 110.1 fL (80.0-100.0); Monocytes # (auto) 1.6 10 ^3/uL (0-1.3); Monocytes % (auto) 11.5 % (0.0-12.0); Neutrophils # (auto) 11.9 10 ^3/uL (1.6-8.6); Neutrophils % (auto) 86.1 % (37.0-80.0); Nucleated Red Blood Cells % 0.1 %; Red Blood Cells 2.26 10^6/uL (4.5-5.90); Red Cell Distribution Width 19.1 % (11.8-14.3); White Blood Cell 13.8 10^3/uL (4.4-10.8)
[2023-07-17] MEDS: ALBUTEROL SULF 2.5 MG/0.5ML(0.5%) NEB SOLN NEB SCH ×4 (07:27→18:07)
[2023-07-17] MEDS: IPRATROPIUM BROM 0.5 MG/2.5ML INH SOL NEB SCH ×4 (07:27→18:07)
[2023-07-17 08:07] LABS: Alanine Aminotransferase 18 U/L (7-40); Alkaline Phosphatase 105 U/L (46-116); Anion Gap 12.6 (5-15); BUN/Creatinine Ratio 5.1 (10.0-20.0); Blood Urea Nitrogen 47 mg/dL (9-23); Calcium 9.5 mg/dL (8.7-10.4); Carbon Dioxide 17.4 mmol/L (20-30); Chloride 100 mmol/L (98-107); Potassium 4.7 mmol/L (3.5-5.1); Sodium 130 mmol/L (136-145)
[2023-07-17 08:08] LABS: Albumin 4.1 g/dL (3.2-4.8); Aspartate Aminotransferase 9 U/L (13-40)
[2023-07-17 08:09] LABS: Total Protein 8.2 g/dL (5.7-8.2)
[2023-07-17 08:15] LABS: Glucose 133 mg/dL (74-106)
[2023-07-17] MEDS ORDERED: cefTRIAXone 1GM/50ML D5W 50 ML IV SCH (09:00)
[2023-07-17] MEDS: PANTOPRAZOLE 40 MG TAB PO SCH ×2 (09:35→22:50)
[2023-07-17] MEDS: DULOXETINE HCL 20 MG PO SCH (10:00)
[2023-07-17] MEDS ORDERED: AZITHROMYCIN 500MG/ 250ML 250 ML IV SCH (10:00)
[2023-07-17] MEDS ORDERED: VANCOMYCIN PER PHARMACY 0 MG IV SCH (12:00)
[2023-07-17] MEDS ORDERED: CEFEPIME 2GM/50ML NS 50 ML IV ONE (12:00)
[2023-07-17] MEDS ORDERED: VANCOMYCIN 1GM/250ML 250 ML IV ONE (12:30)
[2023-07-17] MEDS: MIDODRINE HCL 10 MG TAB PO SCH (14:00)
[2023-07-17] MEDS ORDERED: VANCOMYCIN 500 MG in D5W 5% 100 ML IV ONE (17:00)
[2023-07-17] MEDS ORDERED: ATORVASTATIN 20 MG TAB PO SCH (22:00)
[2023-07-17] MEDS: DOXYCYCLINE 100 MG TAB/CAP PO SCH (22:50)
[2023-07-17] MEDS: busPIRone HCL 10 MG TAB PO SCH (22:50)
[2023-07-17] MEDS ORDERED: methylPREDNISolone SOD SUCC 40 MG/ML VL IV ONE (23:00)
[2023-07-18] VITALS (9 sets, daily range): BP systolic 93–105; BP diastolic 47–69; PULSE 58–90; RESP 16–22; TEMP 97.4–98.4; O2SAT 92–100
[2023-07-18 06:10] LABS: Chloride 100 mmol/L (98-107); Potassium 5.5 mmol/L (3.5-5.1); Sodium 132 mmol/L (136-145)
[2023-07-18 06:11] LABS: Anion Gap 14.5 (5-15); Carbon Dioxide 17.5 mmol/L (20-30)
[2023-07-18 06:12] LABS: Calcium 9.6 mg/dL (8.5-10.1)
[2023-07-18 06:14] LABS: INR 1.32 (0.9-1.15); Partial Thromboplastin Time 23.7 SEC (24.5-34.5); Prothrombin Time 13.6 sec (9.3-11.8)
[2023-07-18 06:16] LABS: Glucose 149 mg/dL (74-106)
[2023-07-18 06:17] LABS: BUN/Creatinine Ratio 5.7 (10.0-20.0); Blood Urea Nitrogen 55 mg/dL (9-23)
[2023-07-18] MEDS: MIDODRINE HCL 10 MG TAB PO SCH (06:40)
[2023-07-18] MEDS: ACCU-CHEK COMFORT CURVE STRIP VI SCH ×3 (06:42→17:10)
[2023-07-18 06:48] LABS: Hemoglobin 7.3 g/dL (13.5-17.5)
[2023-07-18 06:52] LABS: Hematocrit 24.2 % (41.0-53.0); Mean Corpuscular Hemoglobin 33.9 pg (28.0-32.0); Mean Corpuscular Hgb Conc. 30.2 g/dL (32.0-36.0); Mean Corpuscular Volume 112.1 fL (80.0-100.0); Red Blood Cells 2.16 10^6/uL (4.5-5.90); Red Cell Distribution Width 19.4 % (11.8-14.3); White Blood Cell 11.4 10^3/uL (4.4-10.8)
[2023-07-18 06:59] LABS: Band Neutrophils % (manual) 0; Basophils % (manual) 0 (0.0-2.0); Blast Cells 0; Eosinophils % (manual) 0 (0-7); Metamyelocytes % 0; Myelocytes % 0; Promyelocytes % 0; Reactive Lymphocytes 0
[2023-07-18] MEDS: InsuLIN REG 1unit/0.01ml Soln (100units/ml) SC SCH ×3 (07:41→17:18)
[2023-07-18] MEDS: ALBUTEROL SULF 2.5 MG/0.5ML(0.5%) NEB SOLN NEB SCH ×3 (08:50→19:02)
[2023-07-18] MEDS: IPRATROPIUM BROM 0.5 MG/2.5ML INH SOL NEB SCH ×3 (08:50→19:02)
[2023-07-18] MEDS ORDERED: VANCOMYCIN 1GM/250ML 250 ML IV ONE (09:00)
[2023-07-18] MEDS: DOXYCYCLINE 100 MG TAB/CAP PO SCH (09:39)
[2023-07-18] MEDS: PANTOPRAZOLE 40 MG TAB PO SCH (09:39)
[2023-07-18] MEDS: DULOXETINE HCL 20 MG PO SCH (09:42)
[2023-07-18] MEDS ORDERED: GABAPENTIN 300 MG CAP PO SCH (10:00)
[2023-07-18] MEDS ORDERED: methylPREDNISolone SOD SUCC 40 MG/ML VL IV SCH (10:00)
[2023-07-18] MEDS ORDERED: CEFEPIME 2GM/50ML NS 50 ML IV SCH (10:00)
[2023-07-18 10:43] LABS: Lymphocytes % (manual) 3 (10.0-50.0); Macrocytosis Marked; Monocytes % (manual) 5 (0-12); Platelet Estimate Adequate
[2023-07-18 17:59] LABS: Body Fluid Polymorphonuclear 23 % (0-25); Body Fluid Red Blood Cells 480 CUMM (0-2000); Body Fluid White Blood Cells 55 CUMM (0-200)
[2023-07-18] MEDS ORDERED: VANCOMYCIN 500 MG in D5W 5% 100 ML IV ONE (21:00)
[2023-07-19 11:08] LABS: Protein, Body Fluid 2.6 g/dL (.)
== END 2023-07-18 20:38 | disposition left against medical advice (07) | DRG 871 ==
LOC: ER 09:53 → EDBD 09:53 → TELE 16:15 → TELE-CENTR 07-17 09:11
PROVIDERS: ADMIT Nurse Practitioner Family; ATTEND Internal Medicine Pulmonary Disease
PROC: 5A09357 Assistance with Respiratory Ventilation, Less than 24 Consecutive Hours, Continuous Positive Airway Pressure (ICD-10-PCS; principal; 2023-07-16)
PROC: 0W993ZZ Drainage of Right Pleural Cavity, Percutaneous Approach (ICD-10-PCS; 2023-07-18)
DX: A41.9 Sepsis, unspecified organism (principal); I50.33 Acute on chronic diastolic (congestive) heart failure; J15.9 Unspecified bacterial pneumonia; N18.6 End stage renal disease; J96.21 Acute and chronic respiratory failure with hypoxia; I13.2 Hypertensive heart and chronic kidney disease with heart failure and with stage 5 chronic kidney disease, or end stage renal disease; J44.0 Chronic obstructive pulmonary disease with (acute) lower respiratory infection; J44.1 Chronic obstructive pulmonary disease with (acute) exacerbation; E11.22 Type 2 diabetes mellitus with diabetic chronic kidney disease; Z20.822 Contact with and (suspected) exposure to COVID-19; Z53.29 Procedure and treatment not carried out because of patient's decision for other reasons; D64.9 Anemia, unspecified; E11.51 Type 2 diabetes mellitus with diabetic peripheral angiopathy without gangrene; E11.621 Type 2 diabetes mellitus with foot ulcer; E66.9 Obesity, unspecified; Z68.29 Body mass index [BMI] 29.0-29.9, adult; F17.210 Nicotine dependence, cigarettes, uncomplicated; E78.5 Hyperlipidemia, unspecified; F12.90 Cannabis use, unspecified, uncomplicated; I95.3 Hypotension of hemodialysis; L97.519 Non-pressure chronic ulcer of other part of right foot with unspecified severity; Z80.3 Family history of malignant neoplasm of breast; Z83.3 Family history of diabetes mellitus; Z86.73 Personal history of transient ischemic attack (TIA), and cerebral infarction without residual deficits; Z87.442 Personal history of urinary calculi; Z99.2 Dependence on renal dialysis; Z71.6 Tobacco abuse counseling
CPT/HCPCS: 36415; 71045; 73630; 76604; 76942; 80048; 80053; 80202; 82962; 83036; 83605; 83986; 84484; 85007; 85025; 85027; 85610; 85730; 86850; 86900; 86901; 86920; 87040; 87070; 87081; 87205; 87426; 89051; 93005; 93306; 93926; 93970; 94640; 94660; 96365; 96366; 99291; G0378; J0692; J0696; J1815; J2543; J7060

== ENCOUNTER 2023-10-15 11:47 | Inpatient (IN) | payer OTHER, MEDICAID ==
[~2023-10-15] VITALS: Ht 200.7 cm; Wt 95.6 kg
[~2023-10-15 11:47] MED LIST changes: +BUSP10TA31 PO; +DULO1CAP4 PO; +MIDO5TAB4 PO; +PANT40T PO; +SEVE800T10 PO
[2023-10-15 13:23] LABS: Alanine Aminotransferase 16 U/L (7-40); Albumin 4.1 g/dL (3.2-4.8); Alkaline Phosphatase 117 U/L (46-116); Anion Gap 10 (5-15); Aspartate Aminotransferase 8 U/L (13-40); BUN/Creatinine Ratio 7.1 (10.0-20.0); Bilirubin, Total 0.5 mg/dL (0.2-1.0); Blood Urea Nitrogen 73 mg/dL (9-23); Calcium 9.9 mg/dL (8.5-10.1); Carbon Dioxide 17 mmol/L (20-30); Chloride 105 mmol/L (98-107); Glucose 203 mg/dL (74-106); Potassium 5.5 mmol/L (3.5-5.1); Sodium 132 mmol/L (136-145); Total Protein 7.7 g/dL (5.7-8.2)
[2023-10-15 13:24] LABS: INR 1.17 (0.9-1.15); Partial Thromboplastin Time 33.3 SEC (24.5-34.5); Prothrombin Time 12.2 sec (9.3-11.8)
[2023-10-15 13:36] LABS: Magnesium 2.6 mg/dL (1.6-2.6)
[2023-10-15 13:38] LABS: Free T3 1.53 pg/mL (2.3-4.2)
[2023-10-15 13:39] LABS: Free T4 (Free Thyroxine) 0.74 ng/dL (0.89-1.76)
[2023-10-15 13:44] LABS: Hematocrit 28.3 % (41.0-53.0); Hemoglobin 8.2 g/dL (13.5-17.5); Mean Corpuscular Hemoglobin 32.8 pg (28.0-32.0)
[2023-10-15] MEDS ORDERED: ALBUTEROL SULF 2.5 MG/0.5ML(0.5%) NEB SOLN NEB ONE (13:45)
[2023-10-15 13:46] LABS: Mean Corpuscular Hgb Conc. 28.8 g/dL (32.0-36.0); Mean Corpuscular Volume 113.9 fL (80.0-100.0); Red Blood Cells 2.49 10^6/uL (4.5-5.90); White Blood Cell 10.5 10^3/uL (4.4-10.8)
[2023-10-15 13:47] LABS: Red Cell Distribution Width 20.6 % (11.8-14.3)
[2023-10-15 13:49] LABS: Band Neutrophils % (manual) 0; Basophils % (manual) 0 (0.0-2.0); Blast Cells 0; Eosinophils % (manual) 0 (0-7); Metamyelocytes % 0; Myelocytes % 0; Promyelocytes % 0; Reactive Lymphocytes 0
[2023-10-15 13:53] LABS: Anisocytosis Slight; Lymphocytes % (manual) 7 (10.0-50.0); Monocytes % (manual) 7 (0-12); Platelet Estimate Decreased
[2023-10-15 13:54] LABS: Giant Platelets Few; Macrocytosis Marked
[2023-10-15] MEDS ORDERED: SODIUM ZIRCONIUM CYCL 10 GM PAK PO ONE (14:15)
[2023-10-15] MEDS ORDERED: InsuLIN REG 1unit/0.01ml Soln (100units/ml) SC ONE (14:15)
[2023-10-15] MEDS ORDERED: SODIUM BICARBONATE 8.4 % INJ 50ML VIAL IV ONE ×2 (14:15→15:00)
[2023-10-15] MEDS ORDERED: DEXTROSE (50%) 50ML SYRG IV ONE (14:15)
[2023-10-15] MEDS ORDERED: FUROSEMIDE 40 MG/4 ML VIAL IV ONE (14:15)
[2023-10-15] MEDS ORDERED: CALCIUM GLUC 1,000mg/50ml-NS 50 ML IV ONE (14:15)
[2023-10-15 14:22] LABS: Base Excess -15.2 mmol/L (-2.0-2.0)
[2023-10-15] MEDS ORDERED: ALBUTEROL MEDNEB 2.5 mg/3ml NEB NEB ONE (14:30)
[2023-10-15] MEDS ORDERED: LACTULOSE 20Gm/30ML SOLN PO ONE (15:30)
[2023-10-15] MEDS ORDERED: MORPHINE SULFATE INJ 2 MG/ml SYRG IV PRN (15:30)
[2023-10-15] MEDS ORDERED: NITROGLYCERIN 0.4 MG SL TAB SL PRN (15:30)
[2023-10-15] MEDS ORDERED: ALBUTEROL MEDNEB 2.5 mg/3ml NEB NEB PRN (15:30)
[2023-10-15] MEDS ORDERED: DEXTROSE (50%) 50ML SYRG IV PRN (15:30)
[2023-10-15] MEDS ORDERED: CEFTRIAXONE SODIUM 2 GM in D5W 5% 100 ML IV ONE (16:15)
[2023-10-15] MEDS: ACCU-CHEK COMFORT CURVE STRIP VI SCH ×2 (17:03→21:22)
[2023-10-15] MEDS: CHOLESTYRAMINE 4 GM POWDER GT SCH ×2 (18:00→21:30)
[2023-10-15] MEDS: FERROUS SULFATE 325mg EC TAB PO SCH (18:13)
[2023-10-15] MEDS: InsuLIN REG 1unit/0.01ml Soln (100units/ml) SC SCH ×2 (18:14→22:34)
[2023-10-15 18:44] VITALS: O2SAT 94
[2023-10-15 19:30] VITALS: PULSE 88; RESP 11; O2SAT 92
[2023-10-15] MEDS: LOPERAMIDE HCL 2 MG CAP/TAB PO SCH (21:24)
[2023-10-15] MEDS ORDERED: busPIRone HCL 10 MG TAB PO SCH (22:00)
[2023-10-15] MEDS: MAGNESIUM OXIDE 400 MG TAB PO SCH (22:30)
[2023-10-15] MEDS: MIDODRINE HCL 10 MG TAB PO SCH (22:31)
[2023-10-15] MEDS: PANTOPRAZOLE 40 MG TAB PO SCH (22:31)
[2023-10-15] MEDS: SEVELAMER 800 MG TAB PO SCH (22:32)
[2023-10-16] VITALS (37 sets, daily range): BP systolic 83–122; BP diastolic 27–73; PULSE 82–93; RESP 9–25; TEMP 97.2–98.3; O2SAT 88–99
[2023-10-16] MEDS ORDERED: SODIUM CHLORIDE 0.9% 500 ML IV ONE (03:45)
[2023-10-16 05:04] LABS: Basophils # (auto) 0.1 10 ^3/uL (0-0.2); Eosinophils # (auto) 0 10 ^3/uL (0-0.8); Hemoglobin 7.3 g/dL (13.5-17.5); Lymphocytes # (auto) 0.4 10 ^3/uL (0.4-5.4); Monocytes # (auto) 1.5 10 ^3/uL (0-1.3); White Blood Cell 12.5 10^3/uL (4.4-10.8)
[2023-10-16 05:07] LABS: Basophils % (auto) 0.8 % (0.0-2.0); Eosinophils % (auto) 0.3 % (0.0-7.0); Hematocrit 24.9 % (41.0-53.0); Mean Corpuscular Hemoglobin 32.9 pg (28.0-32.0); Mean Corpuscular Hgb Conc. 29.4 g/dL (32.0-36.0); Mean Corpuscular Volume 111.9 fL (80.0-100.0); Monocytes % (auto) 12.2 % (0.0-12.0); Neutrophils # (auto) 10.4 10 ^3/uL (1.6-8.6); Neutrophils % (auto) 83.7 % (37.0-80.0); Nucleated Red Blood Cells % 0.9 %; Red Blood Cells 2.23 10^6/uL (4.5-5.90)
[2023-10-16 05:11] LABS: Urine Bacteria FEW /hpf (None Seen); Urine Blood Negative /uL (Negative); Urine Clarity HAZY (Clear); Urine Color Yellow (Yellow); Urine Hyaline Cast FEW /lpf (0 - 2); Urine Mucus FEW (None Seen); Urine Protein, UAD TRACE (Negative); Urine Specific Gravity 1.021 (1.001-1.035); Urine Urobilinogen Normal (Negative); Urine WBC 1 /hpf (0 - 3)
[2023-10-16 05:20] LABS: Red Cell Distribution Width 21.2 % (11.8-14.3)
[2023-10-16 05:27] LABS: Alanine Aminotransferase 15 U/L (7-40); Alkaline Phosphatase 102 U/L (46-116); Anion Gap 12 (5-15); BUN/Creatinine Ratio 6.9 (10.0-20.0); Blood Urea Nitrogen 71 mg/dL (9-23); Calcium 9.9 mg/dL (8.5-10.1); Carbon Dioxide 17 mmol/L (20-30); Chloride 105 mmol/L (98-107); Glucose 103 mg/dL (74-106); Potassium 5.3 mmol/L (3.5-5.1); Sodium 134 mmol/L (136-145)
[2023-10-16 05:28] LABS: Aspartate Aminotransferase < 8 U/L (13-40); Bilirubin, Total 0.5 mg/dL (0.2-1.0); Total Protein 7.5 g/dL (5.7-8.2)
[2023-10-16] MEDS: LOPERAMIDE HCL 2 MG CAP/TAB PO SCH ×3 (06:00→22:00)
[2023-10-16] MEDS: CHOLESTYRAMINE 4 GM POWDER GT SCH ×4 (06:00→22:00)
[2023-10-16] MEDS: MIDODRINE HCL 10 MG TAB PO SCH ×3 (06:24→22:07)
[2023-10-16] MEDS: SEVELAMER 800 MG TAB PO SCH ×3 (06:24→22:06)
[2023-10-16] MEDS: ACCU-CHEK COMFORT CURVE STRIP VI SCH ×4 (06:31→22:15)
[2023-10-16] MEDS: InsuLIN REG 1unit/0.01ml Soln (100units/ml) SC SCH ×4 (06:31→22:16)
[2023-10-16] MEDS ORDERED: SODIUM CHL 0.9% 1000 ML BAG XX ONE (07:00)
[2023-10-16 07:19] LABS: Base Excess -14.4 mmol/L (-2.0-2.0)
[2023-10-16] MEDS ORDERED: SODIUM BICARBONATE 650 MG TAB PO ONE (07:30)
[2023-10-16] MEDS: PHENYLEPHRINE IV 250 ML IV SCH ×2 (08:02→13:01)
[2023-10-16] MEDS: FERROUS SULFATE 325mg EC TAB PO SCH ×2 (08:06→18:00)
[2023-10-16] MEDS ORDERED: ALBUMIN 25% 100 ML IV ONE (08:30)
[2023-10-16] MEDS ORDERED: LACTULOSE 20Gm/30ML SOLN PO SCH (10:00)
[2023-10-16] MEDS ORDERED: ASPirin 325 MG TAB PO SCH (10:00)
[2023-10-16] MEDS ORDERED: Duloxetine HCl 20 MG PO SCH (10:00)
[2023-10-16] MEDS ORDERED: CHOLECALCIFEROL (VITD3) 2,000 UNIT CAP/TAB PO SCH (10:00)
[2023-10-16] MEDS ORDERED: GABAPENTIN 300 MG CAP PO SCH (10:00)
[2023-10-16] MEDS ORDERED: VANCOMYCIN PER PHARMACY 0 MG IV SCH (10:45)
[2023-10-16] MEDS ORDERED: CEFEPIME 1GM/ 50ML 50 ML IV ONE (10:45)
[2023-10-16] MEDS ORDERED: VANCOMYCIN 1GM/200ML 250 ML IV ONE (11:45)
[2023-10-16 12:11] LABS: Base Excess -1.4 mmol/L (-2.0-2.0)
[2023-10-16] MEDS: MAGNESIUM OXIDE 400 MG TAB PO SCH (12:14)
[2023-10-16] MEDS: FINASTERIDE 5 MG TAB PO SCH (12:14)
[2023-10-16] MEDS: PANTOPRAZOLE 40 MG TAB PO SCH (12:14)
[2023-10-16] MEDS: ATORVASTATIN 20 MG TAB PO SCH (12:15)
[2023-10-16] MEDS ORDERED: NOREPINEPHRINE 8 MG/250ML KIT 250 ML IV SCH (17:15)
[2023-10-16 20:20] LABS: Basophils % (auto) 0.6 % (0.0-2.0); Eosinophils # (auto) 0 10 ^3/uL (0-0.8); Lymphocytes # (auto) 0.3 10 ^3/uL (0.4-5.4); Lymphocytes % (auto) 3.2 % (10.0-50.0); Mean Corpuscular Hgb Conc. 30.9 g/dL (32.0-36.0); Nucleated Red Blood Cells % 0.7 %; Red Blood Cells 2.38 10^6/uL (4.5-5.90)
[2023-10-16 20:22] LABS: Basophils # (auto) 0 10 ^3/uL (0-0.2); Eosinophils % (auto) 0.3 % (0.0-7.0); Hematocrit 25.8 % (41.0-53.0); Mean Corpuscular Hemoglobin 33.4 pg (28.0-32.0); Mean Corpuscular Volume 108.2 fL (80.0-100.0); Monocytes # (auto) 1.1 10 ^3/uL (0-1.3); Monocytes % (auto) 12.2 % (0.0-12.0); Neutrophils # (auto) 7.3 10 ^3/uL (1.6-8.6); Neutrophils % (auto) 83.7 % (37.0-80.0); Red Cell Distribution Width 20.4 % (11.8-14.3); White Blood Cell 8.7 10^3/uL (4.4-10.8)
[2023-10-16] MEDS ORDERED: EPOETIN ALFA-EPBX 10,000 UNIT/1ML VIAL SC ONE (21:00)
[2023-10-17] VITALS (95 sets, daily range): BP systolic 76–133; BP diastolic 34–72; PULSE 74–94; RESP 8–33; TEMP 97.3–98.3; O2SAT 85–100
[2023-10-17] MEDS: PHENYLEPHRINE IV 250 ML IV SCH ×3 (00:10→07:03)
[2023-10-17 05:49] LABS: Basophils # (auto) 0 10 ^3/uL (0-0.2); Eosinophils # (auto) 0 10 ^3/uL (0-0.8); Eosinophils % (auto) 0.5 % (0.0-7.0); Hemoglobin 8.2 g/dL (13.5-17.5); Monocytes # (auto) 1.3 10 ^3/uL (0-1.3); White Blood Cell 8.7 10^3/uL (4.4-10.8)
[2023-10-17] MEDS: MIDODRINE HCL 10 MG TAB PO SCH ×3 (05:55→22:06)
[2023-10-17] MEDS: LOPERAMIDE HCL 2 MG CAP/TAB PO SCH ×2 (05:55→09:22)
[2023-10-17] MEDS: CHOLESTYRAMINE 4 GM POWDER GT SCH ×2 (05:55→11:38)
[2023-10-17] MEDS: SEVELAMER 800 MG TAB PO SCH ×3 (05:56→22:06)
[2023-10-17 06:03] LABS: Alanine Aminotransferase 14 U/L (7-40); Albumin 3.8 g/dL (3.2-4.8); Alkaline Phosphatase 90 U/L (46-116); Anion Gap 8 (5-15); Aspartate Aminotransferase 14 U/L (13-40); BUN/Creatinine Ratio 5.9 (10.0-20.0); Calcium 8.8 mg/dL (8.7-10.4); Carbon Dioxide 24 mmol/L (20-30); Chloride 104 mmol/L (98-107); Glucose 100 mg/dL (74-106); Potassium 4.7 mmol/L (3.5-5.1); Sodium 136 mmol/L (136-145)
[2023-10-17 06:04] LABS: Bilirubin, Total 0.8 mg/dL (0.2-1.0)
[2023-10-17 06:06] LABS: Basophils % (auto) 0.4 % (0.0-2.0); Hematocrit 26.8 % (41.0-53.0); Lymphocytes # (auto) 0.3 10 ^3/uL (0.4-5.4); Lymphocytes % (auto) 3.9 % (10.0-50.0); Mean Corpuscular Hemoglobin 34.2 pg (28.0-32.0); Mean Corpuscular Hgb Conc. 30.4 g/dL (32.0-36.0); Mean Corpuscular Volume 112.2 fL (80.0-100.0); Monocytes % (auto) 15.1 % (0.0-12.0); Neutrophils % (auto) 80.1 % (37.0-80.0); Nucleated Red Blood Cells % 0.8 %; Red Blood Cells 2.39 10^6/uL (4.5-5.90); Red Cell Distribution Width 21.4 % (11.8-14.3)
[2023-10-17 06:09] LABS: Blood Urea Nitrogen 40 mg/dL (9-23)
[2023-10-17] MEDS: ACCU-CHEK COMFORT CURVE STRIP VI SCH ×2 (06:31→09:03)
[2023-10-17] MEDS: InsuLIN REG 1unit/0.01ml Soln (100units/ml) SC SCH ×2 (06:31→11:30)
[2023-10-17] MEDS: FINASTERIDE 5 MG TAB PO SCH (09:02)
[2023-10-17] MEDS: ATORVASTATIN 20 MG TAB PO SCH (09:02)
[2023-10-17] MEDS: FERROUS SULFATE 325mg EC TAB PO SCH ×2 (09:02→17:06)
[2023-10-17] MEDS ORDERED: CEFEPIME 1GM/ 50ML 50 ML IV SCH (10:00)
[2023-10-17] MEDS ORDERED: PANTOPRAZOLE 40 MG/10 ML VIAL INJ IV SCH (10:00)
[2023-10-17] MEDS ORDERED: busPIRone HCL 10 MG TAB PO ONE (13:45)
[2023-10-17] MEDS ORDERED: VANCOMYCIN 1GM/200ML 250 ML IV ONE (14:00)
[2023-10-17 16:28] LABS: COVID19 ANTIGEN SOFIA FIA NEGATIVE (NEGATIVE)
[2023-10-17] MEDS ORDERED: methylPREDNISolone SOD SUCC 40 MG/ML VL IV ONE (16:45)
[2023-10-17] MEDS ORDERED: IPRATROPIUM BROM 0.5 MG/2.5ML INH SOL NEB SCH (18:00)
[2023-10-17] MEDS ORDERED: ALBUTEROL MEDNEB 2.5 mg/3ml NEB NEB SCH (18:00)
[2023-10-17] MEDS ORDERED: busPIRone HCL 10 MG TAB PO SCH (22:00)
[2023-10-17] MEDS ORDERED: methylPREDNISolone SOD SUCC 40 MG/ML VL IV SCH (22:00)
[2023-10-18] VITALS: BP 121/60; PULSE 87; PULSE 90; RESP 20; RESP 26; TEMP 97.7; O2SAT 91; O2SAT 92
[2023-10-18 00:15] VITALS: PULSE 90; RESP 26; O2SAT 90
[2023-10-18] MEDS ORDERED: SODIUM CHL 0.9% 1000 ML BAG XX ONE (07:00)
[2023-10-18] MEDS ORDERED: EPOETIN ALFA-EPBX 10,000 UNIT/1ML VIAL SC ONE (21:00)
== END 2023-10-18 00:32 | disposition short-term general hospital (02) | DRG 871 ==
LOC: EDBD 11:47 → ER 11:47 → TELE 15:27 → DOU IN ICU 10-16 17:30 → ICU CENTRL 10-17 01:11
PROVIDERS: ADMIT Nurse Practitioner Family; ATTEND Internal Medicine
PROC: 05HC33Z Insertion of Infusion Device into Left Basilic Vein, Percutaneous Approach (ICD-10-PCS; principal; 2023-10-16)
PROC: B54NZZA Ultrasonography of Left Upper Extremity Veins, Guidance (ICD-10-PCS; 2023-10-16)
PROC: 5A1D70Z Performance of Urinary Filtration, Intermittent, Less than 6 Hours Per Day (ICD-10-PCS; 2023-10-16)
PROC: 30233N1 Transfusion of Nonautologous Red Blood Cells into Peripheral Vein, Percutaneous Approach (ICD-10-PCS; 2023-10-16)
DX: A41.9 Sepsis, unspecified organism (principal); G92.8 Other toxic encephalopathy; J96.20 Acute and chronic respiratory failure, unspecified whether with hypoxia or hypercapnia; N18.6 End stage renal disease; R65.21 Severe sepsis with septic shock; I50.33 Acute on chronic diastolic (congestive) heart failure; E87.4 Mixed disorder of acid-base balance; I13.2 Hypertensive heart and chronic kidney disease with heart failure and with stage 5 chronic kidney disease, or end stage renal disease; M86.8X7 Other osteomyelitis, ankle and foot; T87.81 Dehiscence of amputation stump; Z20.822 Contact with and (suspected) exposure to COVID-19; E11.51 Type 2 diabetes mellitus with diabetic peripheral angiopathy without gangrene; D63.1 Anemia in chronic kidney disease; D69.6 Thrombocytopenia, unspecified; E11.22 Type 2 diabetes mellitus with diabetic chronic kidney disease; E11.621 Type 2 diabetes mellitus with foot ulcer; E87.5 Hyperkalemia; E11.65 Type 2 diabetes mellitus with hyperglycemia; E11.69 Type 2 diabetes mellitus with other specified complication; J44.9 Chronic obstructive pulmonary disease, unspecified; L03.031 Cellulitis of right toe; Y83.8 Other surgical procedures as the cause of abnormal reaction of the patient, or of later complication, without mention of misadventure at the time of the procedure; Z91.158 Patient's noncompliance with renal dialysis for other reason; Z99.2 Dependence on renal dialysis; Z88.6 Allergy status to analgesic agent; Z88.8 Allergy status to other drugs, medicaments and biological substances; Z80.3 Family history of malignant neoplasm of breast; Z83.3 Family history of diabetes mellitus; Z86.73 Personal history of transient ischemic attack (TIA), and cerebral infarction without residual deficits; Z87.442 Personal history of urinary calculi; Z89.429 Acquired absence of other toe(s), unspecified side; Z91.199 Patient's noncompliance with other medical treatment and regimen due to unspecified reason; Z93.2 Ileostomy status; Y92.89 Other specified places as the place of occurrence of the external cause; E11.42 Type 2 diabetes mellitus with diabetic polyneuropathy
CPT/HCPCS: 36415; 36600; 70450; 71045; 73700; 80053; 80202; 81001; 82140; 82270; 82607; 82805; 82962; 83036; 83605; 83690; 83735; 83880; 84439; 84443; 84481; 84484; 85007; 85025; 85027; 85610; 85730; 86850; 86900; 86901; 86920; 87040; 87081; 87426; 90935; 93005; 93925; 94640; 99291; C9113; G0378; J0696; J1815; J7060; P9047

== ENCOUNTER 2023-11-13 21:50 | Emergency (ER) | payer OTHER, MEDICAID ==
[~2023-11-13] VITALS: Ht 182.9 cm; Wt 110.0 kg
[2023-11-13 21:55] VITALS: BP 116/58; PULSE 84; RESP 20; O2SAT 98
[2023-11-13 22:36] LABS: Basophils # (auto) 0.1 10 ^3/uL (0-0.2); Eosinophils # (auto) 0.1 10 ^3/uL (0-0.8); Lymphocytes # (auto) 0.8 10 ^3/uL (0.4-5.4); Monocytes # (auto) 1.5 10 ^3/uL (0-1.3); Neutrophils # (auto) 6.2 10 ^3/uL (1.6-8.6); Neutrophils % (auto) 71.1 % (37.0-80.0)
[2023-11-13 22:37] LABS: Eosinophils % (auto) 1.5 % (0.0-7.0); Hematocrit 26.5 % (41.0-53.0); Hemoglobin 7.9 g/dL (13.5-17.5); Lymphocytes % (auto) 8.8 % (10.0-50.0); Mean Corpuscular Hemoglobin 33.4 pg (28.0-32.0); Mean Corpuscular Hgb Conc. 29.8 g/dL (32.0-36.0); Mean Corpuscular Volume 112.1 fL (80.0-100.0); Monocytes % (auto) 17.6 % (0.0-12.0); Nucleated Red Blood Cells % 0.6 %; Red Blood Cells 2.36 10^6/uL (4.5-5.90); White Blood Cell 8.7 10^3/uL (4.4-10.8)
[2023-11-13 22:41] LABS: Red Cell Distribution Width 25.2 % (11.8-14.3)
[2023-11-13 22:51] LABS: Alanine Aminotransferase 18 U/L (7-40); Albumin 4.2 g/dL (3.2-4.8); Alkaline Phosphatase 89 U/L (46-116); Anion Gap 12 (5-15); Aspartate Aminotransferase 11 U/L (13-40); BUN/Creatinine Ratio 4.8 (10.0-20.0); Bilirubin, Total 0.9 mg/dL (0.2-1.0); Blood Urea Nitrogen 28 mg/dL (9-23); Calcium 9.9 mg/dL (8.5-10.1); Carbon Dioxide 21 mmol/L (20-30); Chloride 97 mmol/L (98-107); Glucose 181 mg/dL (74-106); Potassium 4.8 mmol/L (3.5-5.1); Sodium 130 mmol/L (136-145); Total Protein 7.7 g/dL (5.7-8.2)
[2023-11-13 22:55] LABS: Anisocytosis Slight; Macrocytosis Marked; Platelet Estimate Decreased
[2023-11-13 22:57] LABS: INR 1.25 (0.9-1.15); Partial Thromboplastin Time 30.1 SEC (24.5-34.5); Prothrombin Time 12.9 sec (9.3-11.8)
== END 2023-11-13 22:56 | disposition left against medical advice (07) ==
LOC: ER 21:50 → EDBD 21:50 → ER 22:56
DX: R06.02 Shortness of breath (principal); F41.9 Anxiety disorder, unspecified; Z53.21 Procedure and treatment not carried out due to patient leaving prior to being seen by health care provider
CPT/HCPCS: 36415; 80053; 83880; 84484; 85025; 85610; 85730

== ENCOUNTER 2023-11-20 15:17 | Inpatient (IN) | payer OTHER, MEDICAID ==
[~2023-11-20] VITALS: Ht 182.9 cm; Wt 123.0 kg
[~2023-11-20 15:17] MED LIST changes: -ASPI-717 PO; -GABA-1250 PO; -METO-158 PO; -NIFE90TA75 PO; -PANT40T PO
[2023-11-20 15:54] LABS: Base Excess -1.4 mmol/L (-2.0-2.0)
[2023-11-20 16:00] VITALS: RESP 12; O2SAT 93
[2023-11-20 16:23] LABS: Eosinophils % (auto) 0.5 % (0.0-7.0); Hemoglobin 7.3 g/dL (13.5-17.5); Lymphocytes # (auto) 0.3 10 ^3/uL (0.4-5.4); Lymphocytes % (auto) 3.2 % (10.0-50.0); Mean Corpuscular Hemoglobin 33.2 pg (28.0-32.0); Nucleated Red Blood Cells % 0.9 %
[2023-11-20 16:27] LABS: Basophils # (auto) 0.1 10 ^3/uL (0-0.2); Basophils % (auto) 0.8 % (0.0-2.0); Eosinophils # (auto) 0 10 ^3/uL (0-0.8); Hematocrit 24.5 % (41.0-53.0); Mean Corpuscular Hgb Conc. 29.7 g/dL (32.0-36.0); Mean Corpuscular Volume 111.6 fL (80.0-100.0); Monocytes % (auto) 10.3 % (0.0-12.0); Neutrophils # (auto) 8.6 10 ^3/uL (1.6-8.6); Neutrophils % (auto) 85.2 % (37.0-80.0)
[2023-11-20 16:41] LABS: Alanine Aminotransferase 25 U/L (7-40); Albumin 4.1 g/dL (3.2-4.8); Alkaline Phosphatase 117 U/L (46-116); Anion Gap 6 (5-15); Aspartate Aminotransferase 16 U/L (13-40); BUN/Creatinine Ratio 7.7 (10.0-20.0); Blood Urea Nitrogen 40 mg/dL (9-23); Carbon Dioxide 26 mmol/L (20-30); Chloride 99 mmol/L (98-107); Glucose 197 mg/dL (74-106); Potassium 5.3 mmol/L (3.5-5.1); Sodium 131 mmol/L (136-145)
[2023-11-20 16:42] LABS: Bilirubin, Total 0.6 mg/dL (0.2-1.0); Total Protein 7.6 g/dL (5.7-8.2)
[2023-11-20 16:50] LABS: Magnesium 1.9 mg/dL (1.6-2.6)
[2023-11-20 17:21] LABS: Anisocytosis Slight; Macrocytosis Marked; Platelet Estimate Decreased
[2023-11-20 17:56] VITALS: BP 106/57; PULSE 96; O2SAT 97
[2023-11-20 19:30] VITALS: PULSE 93; RESP 13; O2SAT 96
[2023-11-20 20:00] VITALS: BP 103/56; PULSE 94; O2SAT 96
[2023-11-20] MEDS ORDERED: SODIUM CHLORIDE 0.9% 1,000 ML IV ONE (22:15)
[2023-11-20 22:45] VITALS: BP 82/45; PULSE 93; O2SAT 95
[2023-11-21] VITALS (7 sets, daily range): BP systolic 100–101; BP diastolic 57–61; PULSE 84–92; RESP 14–17; TEMP 97.6; O2SAT 91–100
[2023-11-21] MEDS: MIDODRINE HCL 10 MG TAB PO SCH ×4 (02:06→22:00)
[2023-11-21] MEDS ORDERED: LORazepam 0.5 MG TAB PO PRN (02:30)
[2023-11-21] MEDS ORDERED: DEXTROSE (50%) 50ML SYRG IV PRN ×2 (02:30→12:30)
[2023-11-21] MEDS ORDERED: DOCUSATE SOD 100 MG CAP PO PRN (02:30)
[2023-11-21] MEDS ORDERED: SODIUM CHL 0.9% 1000 ML BAG XX ONE ×2 (02:30→20:00)
[2023-11-21] MEDS ORDERED: ONDANSETRON HCL 4 MG/2 ML VIAL IV PRN (02:30)
[2023-11-21] MEDS ORDERED: ACETAMINOPHEN 325 MG TAB PO PRN (02:30)
[2023-11-21 05:42] LABS: Basophils # (auto) 0.1 10 ^3/uL (0-0.2); Basophils % (auto) 0.8 % (0.0-2.0); Eosinophils # (auto) 0.1 10 ^3/uL (0-0.8); Hemoglobin 7.1 g/dL (13.5-17.5); Lymphocytes # (auto) 0.3 10 ^3/uL (0.4-5.4); Nucleated Red Blood Cells % 0.9 %
[2023-11-21 05:46] LABS: Eosinophils % (auto) 0.9 % (0.0-7.0); Hematocrit 23.8 % (41.0-53.0); Lymphocytes % (auto) 4.2 % (10.0-50.0); Mean Corpuscular Hemoglobin 33.3 pg (28.0-32.0); Mean Corpuscular Hgb Conc. 30.1 g/dL (32.0-36.0); Mean Corpuscular Volume 110.8 fL (80.0-100.0); Monocytes % (auto) 13.3 % (0.0-12.0); Neutrophils # (auto) 6.4 10 ^3/uL (1.6-8.6); Neutrophils % (auto) 80.8 % (37.0-80.0); Red Blood Cells 2.14 10^6/uL (4.5-5.90); White Blood Cell 7.9 10^3/uL (4.4-10.8)
[2023-11-21 05:54] LABS: Red Cell Distribution Width 24.7 % (11.8-14.3)
[2023-11-21 05:59] LABS: Chloride 101 mmol/L (98-107); Potassium 5.3 mmol/L (3.5-5.1); Sodium 132 mmol/L (136-145)
[2023-11-21 06:00] LABS: Anion Gap 6 (5-15); Calcium 9.8 mg/dL (8.5-10.1); Carbon Dioxide 25 mmol/L (20-30)
[2023-11-21 06:05] LABS: BUN/Creatinine Ratio 7.6 (10.0-20.0); Blood Urea Nitrogen 41 mg/dL (9-23); Glucose 153 mg/dL (74-106)
[2023-11-21] MEDS: ACCU-CHEK COMFORT CURVE STRIP VI SCH ×4 (06:45→23:13)
[2023-11-21] MEDS: InsuLIN REG 1unit/0.01ml Soln (100units/ml) SC SCH ×4 (06:55→23:13)
[2023-11-21 08:12] LABS: Anisocytosis Moderate; Macrocytosis Marked; Ovalocytes FEW; Platelet Estimate Decreased; Stomatocytes Few
[2023-11-21] MEDS ORDERED: B-COMPLEX W/ C & FOLIC ACID(NEPHROVITE TAB) PO ONE (12:30)
[2023-11-21] MEDS ORDERED: DULoxetine HCL 30 MG CAP PO ONE (12:30)
[2023-11-21] MEDS ORDERED: PANTOPRAZOLE 40 MG TAB PO ONE (12:30)
[2023-11-21 13:59] LABS: INR 1.18 (0.9-1.15); Partial Thromboplastin Time 28.8 SEC (24.5-34.5); Prothrombin Time 12.3 sec (9.3-11.8)
[2023-11-21] MEDS: SEVELAMER 800 MG TAB PO SCH (18:00)
[2023-11-21] MEDS ORDERED: EPOETIN ALFA-EPBX 10,000 UNIT/1ML VIAL SC ONE (21:00)
[2023-11-21] MEDS ORDERED: InsuLIN REG 1unit/0.01ml Soln (100units/ml) SC SCH (22:00)
[2023-11-22] VITALS (13 sets, daily range): BP systolic 88–102; BP diastolic 54–66; PULSE 58–86; RESP 11–20; TEMP 98.4–98.6; O2SAT 93–100
[2023-11-22] MEDS: MIDODRINE HCL 10 MG TAB PO SCH ×3 (05:23→17:20)
[2023-11-22 05:28] LABS: Basophils # (auto) 0.1 10 ^3/uL (0-0.2); Eosinophils # (auto) 0.1 10 ^3/uL (0-0.8); Hemoglobin 7.5 g/dL (13.5-17.5); Monocytes # (auto) 1.5 10 ^3/uL (0-1.3)
[2023-11-22 05:31] LABS: Basophils % (auto) 0.8 % (0.0-2.0); Hematocrit 24.8 % (41.0-53.0); Lymphocytes # (auto) 0.4 10 ^3/uL (0.4-5.4); Lymphocytes % (auto) 3.4 % (10.0-50.0); Mean Corpuscular Hgb Conc. 30.2 g/dL (32.0-36.0); Mean Corpuscular Volume 109.5 fL (80.0-100.0); Monocytes % (auto) 13.6 % (0.0-12.0); Neutrophils # (auto) 8.8 10 ^3/uL (1.6-8.6); Neutrophils % (auto) 81.2 % (37.0-80.0); Nucleated Red Blood Cells % 1.2 %; Red Blood Cells 2.26 10^6/uL (4.5-5.90); White Blood Cell 10.8 10^3/uL (4.4-10.8)
[2023-11-22 05:34] LABS: Red Cell Distribution Width 24.3 % (11.8-14.3)
[2023-11-22 05:40] LABS: Alanine Aminotransferase 24 U/L (7-40); Albumin 4.1 g/dL (3.2-4.8); Alkaline Phosphatase 112 U/L (46-116); Anion Gap 5 (5-15); Aspartate Aminotransferase 19 U/L (13-40); BUN/Creatinine Ratio 7.3 (10.0-20.0); Bilirubin, Total 0.6 mg/dL (0.2-1.0); Calcium 9.3 mg/dL (8.7-10.4); Carbon Dioxide 30 mmol/L (20-30); Chloride 100 mmol/L (98-107); Glucose 136 mg/dL (74-106); Potassium 4.1 mmol/L (3.5-5.1); Sodium 135 mmol/L (136-145); Total Protein 7.5 g/dL (5.7-8.2)
[2023-11-22 05:44] LABS: Blood Urea Nitrogen 30 mg/dL (9-23)
[2023-11-22 06:00] LABS: Anisocytosis Slight; Hypochromia Slight; Macrocytosis Slight; Platelet Estimate Decreased
[2023-11-22 06:01] LABS: Target Cell FEW
[2023-11-22] MEDS: IPRATROPIUM BROM 0.5 MG/2.5ML INH SOL NEB PRN ×2 (06:22→18:57)
[2023-11-22] MEDS: ALBUTEROL SULF 2.5 MG/0.5ML(0.5%) NEB SOLN NEB PRN ×2 (06:22→18:57)
[2023-11-22] MEDS: ACCU-CHEK COMFORT CURVE STRIP VI SCH ×4 (06:49→21:47)
[2023-11-22] MEDS: InsuLIN REG 1unit/0.01ml Soln (100units/ml) SC SCH ×4 (06:50→21:49)
[2023-11-22] MEDS: SEVELAMER 800 MG TAB PO SCH ×3 (08:25→17:52)
[2023-11-22] MEDS: B-COMPLEX W/ C & FOLIC ACID(NEPHROVITE TAB) PO SCH (09:50)
[2023-11-22] MEDS: PANTOPRAZOLE 40 MG TAB PO SCH (09:50)
[2023-11-22] MEDS ORDERED: DULoxetine HCL 30 MG CAP PO SCH (10:00)
[2023-11-23] VITALS (13 sets, daily range): BP systolic 95–124; BP diastolic 54–62; PULSE 67–87; RESP 16–20; TEMP 97.4–98.1; O2SAT 93–100
[2023-11-23] MEDS: MIDODRINE HCL 10 MG TAB PO SCH ×3 (06:02→17:32)
[2023-11-23] MEDS: ACCU-CHEK COMFORT CURVE STRIP VI SCH ×4 (06:09→22:00)
[2023-11-23] MEDS: InsuLIN REG 1unit/0.01ml Soln (100units/ml) SC SCH ×4 (06:09→22:01)
[2023-11-23 06:49] LABS: Hemoglobin 8.1 g/dL (13.5-17.5)
[2023-11-23 06:54] LABS: Hematocrit 27.1 % (41.0-53.0); Mean Corpuscular Hemoglobin 33.3 pg (28.0-32.0); Mean Corpuscular Hgb Conc. 29.9 g/dL (32.0-36.0); Mean Corpuscular Volume 111.4 fL (80.0-100.0); Red Blood Cells 2.43 10^6/uL (4.5-5.90)
[2023-11-23 07:13] LABS: Anion Gap 8 (5-15); Calcium 9.5 mg/dL (8.7-10.4); Carbon Dioxide 25 mmol/L (20-30); Chloride 99 mmol/L (98-107); Potassium 4.6 mmol/L (3.5-5.1); Sodium 132 mmol/L (136-145)
[2023-11-23 07:19] LABS: BUN/Creatinine Ratio 6.8 (10.0-20.0); Blood Urea Nitrogen 31 mg/dL (9-23); Glucose 74 mg/dL (74-106)
[2023-11-23 07:22] LABS: Red Cell Distribution Width 24.3 % (11.8-14.3)
[2023-11-23] MEDS: B-COMPLEX W/ C & FOLIC ACID(NEPHROVITE TAB) PO SCH (08:32)
[2023-11-23] MEDS: PANTOPRAZOLE 40 MG TAB PO SCH (08:32)
[2023-11-23] MEDS: SEVELAMER 800 MG TAB PO SCH ×3 (08:33→17:32)
[2023-11-23 11:46] LABS: Band Neutrophils % (manual) 0; Basophils % (manual) 0 (0.0-2.0); Metamyelocytes % 0; Myelocytes % 0; Promyelocytes % 0
[2023-11-23 11:48] LABS: Blast Cells 0; Reactive Lymphocytes 0
[2023-11-23 11:49] LABS: Lymphocytes % (manual) 7 (10.0-50.0)
[2023-11-23 11:50] LABS: Eosinophils % (manual) 2 (0-7); Monocytes % (manual) 16 (0-12); Platelet Estimate Decreased
[2023-11-24 00:18] VITALS: PULSE 80; O2SAT 99
[2023-11-24] MEDS ORDERED: SODIUM CHL 0.9% 1000 ML BAG XX ONE (07:00)
[2023-11-24] MEDS ORDERED: EPOETIN ALFA-EPBX 10,000 UNIT/1ML VIAL SC ONE (21:00)
== END 2023-11-23 23:59 | disposition short-term general hospital (02) | DRG 291 ==
LOC: ER 15:17 → EDBD 15:17 → TELE 11-21 02:34 → TELE-WESTW 11-22 12:34
PROVIDERS: ADMIT Hospitalist; ATTEND Internal Medicine
PROC: 5A09357 Assistance with Respiratory Ventilation, Less than 24 Consecutive Hours, Continuous Positive Airway Pressure (ICD-10-PCS; principal; 2023-11-20)
PROC: 5A09357 Assistance with Respiratory Ventilation, Less than 24 Consecutive Hours, Continuous Positive Airway Pressure (ICD-10-PCS; 2023-11-21)
PROC: 5A1D70Z Performance of Urinary Filtration, Intermittent, Less than 6 Hours Per Day (ICD-10-PCS; 2023-11-21)
PROC: 5A09357 Assistance with Respiratory Ventilation, Less than 24 Consecutive Hours, Continuous Positive Airway Pressure (ICD-10-PCS; 2023-11-22)
PROC: 5A09357 Assistance with Respiratory Ventilation, Less than 24 Consecutive Hours, Continuous Positive Airway Pressure (ICD-10-PCS; 2023-11-23)
DX: I13.2 Hypertensive heart and chronic kidney disease with heart failure and with stage 5 chronic kidney disease, or end stage renal disease (principal); I50.33 Acute on chronic diastolic (congestive) heart failure; J96.21 Acute and chronic respiratory failure with hypoxia; N18.6 End stage renal disease; E11.22 Type 2 diabetes mellitus with diabetic chronic kidney disease; E11.40 Type 2 diabetes mellitus with diabetic neuropathy, unspecified; E66.01 Morbid (severe) obesity due to excess calories; E87.5 Hyperkalemia; D69.6 Thrombocytopenia, unspecified; D63.1 Anemia in chronic kidney disease; F41.9 Anxiety disorder, unspecified; I95.9 Hypotension, unspecified; J44.89 Other specified chronic obstructive pulmonary disease; Z86.73 Personal history of transient ischemic attack (TIA), and cerebral infarction without residual deficits; Z87.442 Personal history of urinary calculi; Z99.2 Dependence on renal dialysis; Z68.36 Body mass index [BMI] 36.0-36.9, adult; Z91.158 Patient's noncompliance with renal dialysis for other reason
CPT/HCPCS: 36415; 36600; 71045; 76604; 80048; 80053; 82805; 82962; 83735; 83880; 84484; 85007; 85025; 85027; 85610; 85730; 87081; 90935; 94640; 94660; 99291; G0378; J1642; J1815